=== PATIENT | male | born 1995 | race Caucasian/White ===

== ENCOUNTER 2018-02-09 18:54 | Observation (INO) | payer MEDICAID, SELFPAY ==
[2018-02-09] VITALS (10 sets, daily range): BP systolic 99–150; BP diastolic 42–78; PULSE 119–153; RESP 14–26; TEMP 36.7–37.3; O2SAT 97–100; BMI 20.8
[2018-02-09 19:16] LABS: Bedside Glucose 357 mg/dL (70-110)
[2018-02-09] MEDS: 0.9% Normal Saline 1,000 ML 999 ML IV ×3 (19:42→21:57)
--- NOTE | 2018-02-09 19:55 | PCM.HP.STD ---
Problem List (1) DKA (diabetic ketoacidoses) Status: Acute (2) Abdominal pain Status: Acute (3) Nausea and vomiting due to hyperglycemia Status: Acute History of Present Illness Date of Admission: 02/09/18 Chief Complaint: DKA The patient is a 22 year old male w/ h/o DM and DKA admitted for DKA. He was transferred from [facility] to [facility] for DKA. He has n/v and abdominal pain for the past 2 days. He has been compliant with his insulin. His abdominal pain has worsened over the past few days. Eating made the pain worse. Rest helped to relieve the pain. Pain is sharp and constant. Pain is severe and is associated with n/v. His vomitus has been nonbloody. His pain has been getting gradually worse over the past two days. There is no other associated symptoms. He went to the ED for further workup. While at [facility], he was started on insulin gtt, and hydrated. However, despite improvement in his blood sugar, there is no improvement in his gap. He was transferred to [facility] for further care. Past Medical History Allergies No Known Allergies Allergy (Verified 02/09/18 19:36) Home Medications: Ambulatory Orders Medication Instructions Recorded Insulin Aspart [Novolog] 0 unit SQ ACHS 02/09/18 Insulin Glargine,Hum.rec.anlog 23 unit SQ BID 02/09/18 [Lantus] Surgical History: no surgical history Psychiatric History: No pertinent psych hx Lives: With Family Smoking Status: Never smoker Alcohol: None Drugs: None - *Family History Maternal History Items: No pertinent history Review of Systems Constitutional: Denies: Chills, Fever, Weight Change HEENT: Denies: Head Aches, Sinus Congestion, Sinus Drainage Cardiovascular: Denies: Chest Pain, Palpitations Respiratory: Denies: Cough, Shortness of breath at rest, Sputum production Gastrointestinal: Reports: Abdominal Pain, Nausea, Vomiting Genitourinary: Denies: Dysuria Musculoskeletal: Denies: Joint Pain, Joint Tenderness Skin: Denies: Rash, Wounds Neurological: Denies: Numbness, Tingling, Focal weakness Psychiatric: Denies: Anxiety, Depression, Homicidal Ideations, Suicidal Ideations Hematologic/ Lymphatic: Denies: Easy Bruising, Easy Bleeding VTE Information - Inpt Only VTE Present on Admission: No VTE Mechan Device Prophylaxis: SCD's VTE Pharm Prophylaxis ordered?: No Patient Problems: Active and Suspected Problems DKA (diabetic ketoacidoses) (Acute) Abdominal pain (Acute) Nausea and vomiting due to hyperglycemia (Acute) - Physical Exam General: Alert, Oriented x3, Cooperative HEENT: Atraumatic, PERRLA, EOMI, Normocephalic Neck: Supple, No JVD, Negative Carotid Bruits Lungs: Clear to auscultation, Normal air movement Cardiovascular: Regular rate, No murmurs Abdomen: Bowel Sounds Present, Soft, Non Tender Extremities: No edema, Capillary Refill Less than 3 Seconds Skin: No rashes, No breakdown Musculoskeletal: No Tenderness to Palpation of Joints or Extremities Neurological: Cranial nerves II-XII grossly intact Psych/Mental Status: Normal Affect, Appropriate Vital Signs Temp Pulse Resp BP Pulse Ox 98.0 F 135 H 16 118/78 100 02/09/18 19:12 02/09/18 19:12 02/09/18 19:12 02/09/18 19:12 02/09/18 19:12 Oxygen Delivery Method Room Air Weight: 64 kg Body Mass Index (BMI) 20.8 POC Glucose 02/09/18 19:09 POC Glucose 357 H Assessment/Plan Active and Suspected Problems DKA (diabetic ketoacidoses) (Acute) Abdominal pain (Acute) Nausea and vomiting due to hyperglycemia (Acute) 22 year old male w/ h/o DM and DKA admitted for DKA. 1) DKA: Anion gap 24. Hyperglycemia with glucose in the 300s. Acetone noted. Probably from noncompliant. Will start DKA protocol. Will follow labs. Hydration. Will restart insulin gtt given worsening blood sugars. Will consider restarting lantus once gap closed. Will get utox and trops. 2) Abdominal pain: Probably from DKA. Supportive care. Hydration. 3) Nausea / vomiting: Probably from DKA. Hydration and insulin. Zofran and compazine PRN. Supportive care. 4) Prophylaxis: SCD.
[2018-02-09] MEDS: Ondansetron 4 MG/2 ML Vial IV (20:03)
--- NOTE | 2018-02-09 20:25 | NURSING ---
REPORT CALLED TO ICU, PATIENT BEING TRANSFERRED NOW.
[2018-02-09 20:29] LABS: AST(SGOT) 17 U/L (15-37); Alanine Aminotransfer ALT/SGPT 24 U/L (16-61); Albumin, Serum 4.1 g/dL (3.2-5.0); Alkaline Phosphatase 113 U/L (45-117); Anion Gap 21 (5-15); BUN 13 mg/dL (7-18); BUN/Creat Ratio 11.9 RATIO (10-20); Bilirubin, Direct 0.24 mg/dL (0.00-0.30); Calcium,Total 8.4 mg/dL (8.5-10.1); Chloride 105 mmol/L (98-107); Creatinine, Serum 1.09 mg/dL (0.70-1.30); EST Glomerular Filtration Rate 89 mL/min (>60); Est Glom Filt Rate - Afr Amer 108 mL/min (>60); Estimated Creatinine Clearance 95.41 ml/min; Globulin 2.9 g/dL (2.2-4.2); Glucose 430 mg/dL (74-106); Magnesium 1.5 mg/dL (1.6-2.6); Potassium 4.5 mmol/L (3.5-5.1); Sodium Level 138 mmol/L (136-145)
[2018-02-09 20:45] LABS: Hemoglobin A1c 9.2 % (4.2-6.3)
[2018-02-09] MEDS: Morphine 4 MG/ML Syringe 1 MG IV ×2 (20:58→23:06)
[2018-02-09] MEDS: proCHLORPERazine 10 MG/2 ML Vial 5 MG IM (20:59)
[2018-02-09 21:03] LABS: Osmolality, Serum 315 mOsm/KG (275-295)
[2018-02-09 22:01] LABS: Bedside Glucose 360 mg/dL (70-110)
[2018-02-09 22:01] LABS: Bedside Glucose 348 mg/dL (70-110)
[2018-02-09 22:22] LABS: M R Staph aureus DNA By PCR Negative (Negative); Probe Check PASS; Specimen Processing Control PASS
[2018-02-09] MEDS: 0.9% Normal Saline 1,000 ML 500 ML IV (23:07)
[2018-02-09 23:33] LABS: Bacteria 0 SEEN /hpf (None Seen); Mucous, Urine 0 SEEN /hpf (<or=2+); Red Blood Cells-Urine 0 SEEN /hpf (0-5); White Blood Cells 0 SEEN /hpf (0-5)
[2018-02-09 23:40] LABS: Color, Urine Straw (Yellow); Glucose, Dipstick 1000 mg/dl (Normal); Leukocyte Esterase-Dipstick Negative /ul (Negative); Nitrite-Dipstick Negative (Negative); Occult Blood-Urine Negative /ul (Negative); Protein-Dipstick Negative (Negative); Urine Bilirubin Dipstick Negative (Negative); Urine Clarity Sl. Cloudy (Clear); Urine Urobilinogen Normal (Normal)
[2018-02-09 23:57] LABS: Ketone-Dipstick 150 mg/dl (Negative)
[2018-02-09 23:58] LABS: Squamous Epithelial Cells - UA 0-5 SEEN /hpf (0-5)
[2018-02-10] VITALS (25 sets, daily range): BP systolic 88–121; BP diastolic 32–66; PULSE 100–133; RESP 13–24; TEMP 37.1–37.6; O2SAT 95–100
[2018-02-10 00:11] LABS: Bedside Glucose 248 mg/dL (70-110)
[2018-02-10 00:11] LABS: Bedside Glucose 207 mg/dL (70-110)
[2018-02-10 00:29] LABS: Anion Gap 17 (5-15); BUN 11 mg/dL (7-18); BUN/Creat Ratio 10.9 RATIO (10-20); Calcium,Total 7.4 mg/dL (8.5-10.1); Chloride 115 mmol/L (98-107); Creatinine, Serum 1.01 mg/dL (0.70-1.30); EST Glomerular Filtration Rate 97 mL/min (>60); Est Glom Filt Rate - Afr Amer 118 mL/min (>60); Estimated Creatinine Clearance 102.97 ml/min; Glucose 242 mg/dL (74-106); Sodium Level 144 mmol/L (136-145)
[2018-02-10] MEDS: Dext 5%-0.45% NS 1,000 ML 150 ML IV ×3 (00:50→20:23)
[2018-02-10] MEDS: proCHLORPERazine 10 MG/2 ML Vial 5 MG IV (01:15)
[2018-02-10] MEDS: Morphine 4 MG/ML Syringe 1 MG IV ×2 (01:22→20:12)
[2018-02-10] MEDS: Ondansetron 4 MG/2 ML Vial IV ×2 (01:24→18:21)
[2018-02-10] MEDS: 0.9% NaCl Peripheral Flush Adult/Peds IV (01:24)
[2018-02-10 02:11] LABS: Bedside Glucose 209 mg/dL (70-110)
[2018-02-10 02:11] LABS: Bedside Glucose 188 mg/dL (70-110)
[2018-02-10 03:25] LABS: Anion Gap 18 (5-15); BUN 9 mg/dL (7-18); BUN/Creat Ratio 9.3 RATIO (10-20); Calcium,Total 7.2 mg/dL (8.5-10.1); Chloride 115 mmol/L (98-107); Creatinine, Serum 0.97 mg/dL (0.70-1.30); EST Glomerular Filtration Rate 102 mL/min (>60); Est Glom Filt Rate - Afr Amer 123 mL/min (>60); Estimated Creatinine Clearance 107.22 ml/min; Glucose 226 mg/dL (74-106); Potassium 4.1 mmol/L (3.5-5.1); Sodium Level 146 mmol/L (136-145)
[2018-02-10 04:16] LABS: Bedside Glucose 223 mg/dL (70-110)
[2018-02-10 04:16] LABS: Bedside Glucose 223 mg/dL (70-110)
[2018-02-10 05:33] LABS: Absolute Lymphocyte Count 0.98 X10^3/ul (0.83-4.51); Absolute Neutrophil Count 16.7 X10^3/uL (2.0-7.7); Basophil# 0.01 X10^3/uL; Basophil% 0.1 % (0-1); Hematocrit 38.7 % (40-54); Hemoglobin 13.7 g/dl (13.0-16.5); Lymphocyte # 0.98 X10^3/ul (4.0); Lymphocyte % 5.2 % (19-41); Mean Corp Hgb Conc 35.4 g/gl (32-36); Mean Corpuscular Hgb 32.4 pg (27.0-32.0); Mean Corpuscular Volume 91.5 fL (80-94); Monocyte% 5.3 % (0-10); Neutrophil # 16.73 X10^3/uL (2.7-7.7); Neutrophil % 89.2 % (47-70); Platelet Count 233 K/mm3 (150-450); RBC Distribution Width CV 12.8 % (11.6-14.6); RBC Distribution Width SD 42.3 fl (35.1-43.9); Red Blood Count 4.23 M/mm3 (4.6-6.2); White Blood Count 18.8 K/mm3 (4.4-11.0)
[2018-02-10 05:39] LABS: Magnesium 1.7 mg/dL (1.6-2.6); Phosphorus 2.4 mg/dL (2.5-4.9)
[2018-02-10 06:15] LABS: POSITIVE COUNT NO; POSITIVE DIFFERENTIAL NO; POSITIVE MORPHOLOGY NO
[2018-02-10 07:10] LABS: Bedside Glucose 195 mg/dL (70-110)
[2018-02-10 07:10] LABS: Bedside Glucose 193 mg/dL (70-110)
[2018-02-10 07:10] LABS: Bedside Glucose 207 mg/dL (70-110)
[2018-02-10 07:28] LABS: Anion Gap 12 (5-15); BUN 8 mg/dL (7-18); BUN/Creat Ratio 8.9 RATIO (10-20); Calcium,Total 7.5 mg/dL (8.5-10.1); Chloride 116 mmol/L (98-107); EST Glomerular Filtration Rate 112 mL/min (>60); Est Glom Filt Rate - Afr Amer 135 mL/min (>60); Estimated Creatinine Clearance 120.07 ml/min; Glucose 199 mg/dL (74-106); Potassium 3.6 mmol/L (3.5-5.1); Sodium Level 145 mmol/L (136-145)
[2018-02-10 08:11] LABS: Bedside Glucose 170 mg/dL (70-110)
[2018-02-10 09:05] LABS: Bedside Glucose 154 mg/dL (70-110)
[2018-02-10 09:28] LABS: Anion Gap 10 (5-15); BUN 8 mg/dL (7-18); BUN/Creat Ratio 8.3 RATIO (10-20); Calcium,Total 7.6 mg/dL (8.5-10.1); Chloride 115 mmol/L (98-107); Creatinine, Serum 0.96 mg/dL (0.70-1.30); EST Glomerular Filtration Rate 103 mL/min (>60); Est Glom Filt Rate - Afr Amer 125 mL/min (>60); Estimated Creatinine Clearance 112.57 ml/min; Glucose 155 mg/dL (74-106); Potassium 3.3 mmol/L (3.5-5.1); Sodium Level 144 mmol/L (136-145)
[2018-02-10 10:56] LABS: Bedside Glucose 97 mg/dL (70-110)
[2018-02-10] MEDS: 0.9% Normal Saline 1,000 ML 150 ML IV ×2 (11:03→18:07)
[2018-02-10] MEDS: Insulin Lispro 100 UNIT/ML INSULN.PEN 15 UNIT SC ×2 (11:49→17:57)
[2018-02-10 13:30] LABS: Bedside Glucose 115 mg/dL (70-110)
[2018-02-10 16:50] LABS: Bedside Glucose 155 mg/dL (70-110)
[2018-02-10] MEDS: Insulin Lispro 100 UNIT/ML INSULN.PEN SC (17:56)
--- NOTE | 2018-02-10 18:15 | PCM.PROGNOTE ---
Patient Problems: Active and Suspected Problems DKA (diabetic ketoacidoses) (Acute) Abdominal pain (Acute) Nausea and vomiting due to hyperglycemia (Acute) Subjective: Patient seen and examined today, he was taken off his insulin drip this morning, his blood sugars have remained under 200, he has had episodes of tremors and tachycardia, I do not know what is causing these episodes, he denies any drug usage to the nurses or alcohol usage. I feel the patient is stable to be transferred to the [facility] floor, I wrote orders to this effect, I do not think he should go home tonight, I think he still needs fluids he is not in taking fluids or nutrition very well today. I will leave him off basal insulin and just use insulin with each meal and sliding scale insulin. I have ordered repeat labs for tonight, patient is afebrile and there is no sign of any infection at this time - Physical Exam General: Alert, Oriented x3, Cooperative, No apparent distress, Well developed, Well nourished HEENT: Atraumatic, PERRLA, EOMI, Normocephalic Oral: Moist Mucosa Neck: Supple, No JVD, No Nuchal Rigidity, Trachea Midline, Thyroid Normal Size and Texture Lungs: Clear to auscultation, Normal air movement, No rhonchi, No wheeze, No rales Cardiovascular: Regular Rhythm, Normal S1, Normal S2, No murmurs, PMI Normal, No rub noted, Tachycardic Abdomen: Bowel Sounds Present, Soft, Non Tender, Non-Distended, No hernias noted Extremities: No clubbing, No cyanosis, No edema, Capillary Refill Less than 3 Seconds Skin: No rashes, No breakdown Musculoskeletal: No Tenderness to Palpation of Joints or Extremities Neurological: Cranial nerves II-XII grossly intact, Neuro grossly intact, Muscle tone normal, Sensory exam intact to light touch and pain, - - He has tremors at times Psych/Mental Status: Normal Affect, Appropriate, Alert and oriented to time, place, person, mood and affect Vital Signs Temp Pulse Resp BP Pulse Ox 98.9 F 124 H 16 118/55 L 100 02/10/18 16:00 02/10/18 17:00 02/10/18 17:00 02/10/18 17:00 02/10/18 17:00 Oxygen Delivery Method Room Air Weight: 66.5 kg Body Mass Index (BMI) 20.8 Finger Stick Blood Glucose 97 Intake and Output for Last 24 Hours 02/08/18 02/09/18 02/10/18 23:59 23:59 23:59 Intake Total 2617 / 2617 3488.6 / 3488.6 Output Total 700 / 700 1450 / 1450 Balance 1916 / 1916 2038.6 / 2038.6 Laboratory Tests Past 24 Hrs 02/09/18 02/09/18 02/09/18 19:20 19:20 19:50 WBC RBC Hgb Hct MCV MCH MCHC RDW RDW Differential Plt Count MPV Immature Gran % (Auto) Neut % (Auto) Lymph % (Auto) [place] % (Auto) Eos % (Auto) Baso % (Auto) Absolute Neuts (auto) Absolute Lymphs (auto) Total Counted Sodium 138 Potassium 4.5 Chloride 105 Carbon Dioxide 12.0 L Anion Gap 21 H BUN 13 Creatinine 1.09 Estim Creat Clear Calc 95.41 Est GFR (MDRD) Af Amer 108 Est GFR (MDRD) Non-Af 89 BUN/Creatinine Ratio 11.9 Glucose 430 H Hemoglobin A1c 9.2 H Serum Osmolality 315 H Calcium 8.4 L Phosphorus Magnesium 1.5 L Total Bilirubin 1.00 Direct Bilirubin 0.24 AST 17 ALT 24 Alkaline Phosphatase 113 Troponin I Total Protein 7.0 Albumin 4.1 Globulin 2.9 Urine Color Urine Clarity Urine pH Ur Specific [place] Urine Protein Urine Glucose (UA) Urine Ketones Urine Occult Blood Urine Nitrite Urine Bilirubin Urine Urobilinogen Ur Leukocyte Esterase Urine RBC Urine WBC Ur Squamous Epith Cells Urine Bacteria Urine Mucus Acetone Level SMALL H MRSA (PCR) 02/09/18 02/09/18 02/09/18 19:50 20:45 23:15 WBC RBC Hgb Hct MCV MCH MCHC RDW RDW Differential Plt Count MPV Immature Gran % (Auto) Neut % (Auto) Lymph % (Auto) Mil[place] % (Auto) Eos % (Auto) Baso % (Auto) Absolute Neuts (auto) Absolute Lymphs (auto) Total Counted Sodium Cancelled Potassium Cancelled Chloride Cancelled Carbon Dioxide Cancelled Anion Gap Cancelled BUN Cancelled Creatinine Cancelled Estim Creat Clear Calc Cancelled Est GFR (MDRD) Af Amer Cancelled Est GFR (MDRD) Non-Af Cancelled BUN/Creatinine Ratio Cancelled Glucose Cancelled Hemoglobin A1c Serum Osmolality Calcium Cancelled Phosphorus Magnesium Total Bilirubin Direct Bilirubin AST ALT Alkaline Phosphatase Troponin I Total Protein Albumin Globulin Urine Color Straw Urine Clarity Sl. Cloudy Urine pH 5.0 Ur Specific [place] 1.020 Urine Protein Negative Urine Glucose (UA) 1000 H Urine Ketones 150 H Urine Occult Blood Negative Urine Nitrite Negative Urine Bilirubin Negative Urine Urobilinogen Normal Ur Leukocyte Esterase Negative Urine RBC 0 SEEN Urine WBC 0 SEEN Ur Squamous Epith Cells 0-5 SEEN Urine Bacteria 0 SEEN Urine Mucus 0 SEEN Acetone Level MRSA (PCR) Negative 02/09/18 02/10/18 02/10/18 23:25 03:05 03:05 WBC 18.8 H RBC 4.23 L Hgb 13.7 Hct 38.7 L MCV 91.5 MCH 32.4 H MCHC 35.4 RDW 12.8 RDW Differential 42.3 Plt Count 233 MPV 10.0 Immature Gran % (Auto) 0.200 Neut % (Auto) 89.2 H Lymph % (Auto) 5.2 L Mil[place] % (Auto) 5.3 Eos % (Auto) 0.0 Baso % (Auto) 0.1 Absolute Neuts (auto) 16.7 H Absolute Lymphs (auto) 0.98 Total Counted Not Reportable Sodium 144 146 H Potassium 4.0 4.1 Chloride 115 H 115 H Carbon Dioxide 12.0 L 13.0 L Anion Gap 17 H 18 H BUN 11 9 Creatinine 1.01 0.97 Estim Creat Clear Calc 102.97 107.22 Est GFR (MDRD) Af Amer 118 123 Est GFR (MDRD) Non-Af 97 102 BUN/Creatinine Ratio 10.9 9.3 L Glucose 242 H 226 H Hemoglobin A1c Serum Osmolality Calcium 7.4 L 7.2 L Phosphorus Magnesium Total Bilirubin Direct Bilirubin AST ALT Alkaline Phosphatase Troponin I < 0.015 Total Protein Albumin Globulin Urine Color Urine Clarity Urine pH Ur Specific [place] Urine Protein Urine Glucose (UA) Urine Ketones Urine Occult Blood Urine Nitrite Urine Bilirubin Urine Urobilinogen Ur Leukocyte Esterase Urine RBC Urine WBC Ur Squamous Epith Cells Urine Bacteria Urine Mucus Acetone Level MRSA (PCR) 02/10/18 02/10/18 02/10/18 03:05 03:05 07:00 WBC RBC Hgb Hct MCV MCH MCHC RDW RDW Differential Plt Count MPV Immature Gran % (Auto) Neut % (Auto) Lymph % (Auto) Mil[place] % (Auto) Eos % (Auto) Baso % (Auto) Absolute Neuts (auto) Absolute Lymphs (auto) Total Counted Sodium 145 Potassium 3.6 Chloride 116 H Carbon Dioxide 17.0 L Anion Gap 12 BUN 8 Creatinine 0.90 Estim Creat Clear Calc 120.07 Est GFR (MDRD) Af Amer 135 Est GFR (MDRD) Non-Af 112 BUN/Creatinine Ratio 8.9 L Glucose 199 H Hemoglobin A1c Serum Osmolality Calcium 7.5 L Phosphorus 2.4 L Magnesium 1.7 Total Bilirubin Direct Bilirubin AST ALT Alkaline Phosphatase Troponin I < 0.015 < 0.015 Total Protein Albumin Globulin Urine Color Urine Clarity Urine pH Ur Specific [place] Urine Protein Urine Glucose (UA) Urine Ketones Urine Occult Blood Urine Nitrite Urine Bilirubin Urine Urobilinogen Ur Leukocyte Esterase Urine RBC Urine WBC Ur Squamous Epith Cells Urine Bacteria Urine Mucus Acetone Level MRSA (PCR) 02/10/18 09:00 WBC RBC Hgb Hct MCV MCH MCHC RDW RDW Differential Plt Count MPV Immature Gran % (Auto) Neut % (Auto) Lymph % (Auto) [place] % (Auto) Eos % (Auto) Baso % (Auto) Absolute Neuts (auto) Absolute Lymphs (auto) Total Counted Sodium 144 Potassium 3.3 L Chloride 115 H Carbon Dioxide 19.0 L Anion Gap 10 BUN 8 Creatinine 0.96 Estim Creat Clear Calc 112.57 Est GFR (MDRD) Af Amer 125 Est GFR (MDRD) Non-Af 103 BUN/Creatinine Ratio 8.3 L Glucose 155 H Hemoglobin A1c Serum Osmolality Calcium 7.6 L Phosphorus Magnesium Total Bilirubin Direct Bilirubin AST ALT Alkaline Phosphatase Troponin I Total Protein Albumin Globulin Urine Color Urine Clarity Urine pH Ur Specific [place] Urine Protein Urine Glucose (UA) Urine Ketones Urine Occult Blood Urine Nitrite Urine Bilirubin Urine Urobilinogen Ur Leukocyte Esterase Urine RBC Urine WBC Ur Squamous Epith Cells Urine Bacteria Urine Mucus Acetone Level MRSA (PCR) POC Glucose 02/10/18 02/10/18 02/10/18 16:46 13:26 10:51 POC Glucose 155 H 115 H 97 02/10/18 02/10/18 02/10/18 09:00 08:05 06:00 POC Glucose 154 H 170 H 207 H 02/10/18 02/10/18 02/10/18 05:05 04:06 03:01 POC Glucose 193 H 223 H 223 H 02/10/18 02/10/18 02/10/18 02:04 00:55 00:06 POC Glucose 209 H 188 H 207 H 02/09/18 02/09/18 02/09/18 22:58 21:55 20:42 POC Glucose 248 H 348 H 360 H 02/09/18 19:09 POC Glucose 357 H Medical Necessity - Tobacco Use Smoking Status: Never smoker Assessment/Plan Active and Suspected Problems DKA (diabetic ketoacidoses) (Acute) Abdominal pain (Acute) Nausea and vomiting due to hyperglycemia (Acute) #1 diabetic ketoacidosis-resolved at this time, again I feel he can be transferred to [facility], labs are pending for tonight, I will hold off placing him on basal insulin at this time due to his poor appetite. I will continue IV fluids at 150 cc/h #2 tachycardia-etiology unclear #3 tremors-etiology unclear, questionable anxiety disorder, will observe patient Code Visit Inpatient E&M: 52340 Subs Hosp L2
[2018-02-10 18:45] LABS: Bedside Glucose 240 mg/dL (70-110)
[2018-02-10 18:50] LABS: ALB/GLOB Ratio 1.5 RATIO (0.9-2.4); AST(SGOT) 15 U/L (15-37); Alanine Aminotransfer ALT/SGPT 19 U/L (16-61); Albumin, Serum 3.6 g/dL (3.2-5.0); Alkaline Phosphatase 99 U/L (45-117); Anion Gap 18 (5-15); BUN 6 mg/dL (7-18); BUN/Creat Ratio 6.8 RATIO (10-20); Calcium,Total 8.2 mg/dL (8.5-10.1); Chloride 107 mmol/L (98-107); Creatinine, Serum 0.88 mg/dL (0.70-1.30); EST Glomerular Filtration Rate 114 mL/min (>60); Est Glom Filt Rate - Afr Amer 138 mL/min (>60); Globulin 2.4 g/dL (2.2-4.2); Glucose 309 mg/dL (74-106); Potassium 3.5 mmol/L (3.5-5.1); Sodium Level 139 mmol/L (136-145)
[2018-02-10 18:53] LABS: Absolute Lymphocyte Count 1.56 X10^3/ul (0.83-4.51); Absolute Neutrophil Count 10.1 X10^3/uL (2.0-7.7); Basophil# 0.02 X10^3/uL; Basophil% 0.2 % (0-1); Eosinophil# 0.02 X10^3/uL; Eosinophils% 0.2 % (0-5); Hematocrit 40.4 % (40-54); Hemoglobin 14.5 g/dl (13.0-16.5); Lymphocyte # 1.56 X10^3/ul (4.0); Lymphocyte % 12.8 % (19-41); Mean Corp Hgb Conc 35.9 g/gl (32-36); Mean Corpuscular Hgb 32.3 pg (27.0-32.0); Mean Platelet Vol. 9.8 fl (6.2-12.0); Monocyte# 0.51 X10^3/uL; Monocyte% 4.2 % (0-10); Neutrophil # 10.05 X10^3/uL (2.7-7.7); Neutrophil % 82.4 % (47-70); Platelet Count 221 K/mm3 (150-450); RBC Distribution Width CV 12.5 % (11.6-14.6); RBC Distribution Width SD 40.8 fl (35.1-43.9); Red Blood Count 4.49 M/mm3 (4.6-6.2); White Blood Count 12.2 K/mm3 (4.4-11.0)
[2018-02-10 18:54] LABS: POSITIVE COUNT NO; POSITIVE DIFFERENTIAL NO; POSITIVE MORPHOLOGY NO
[2018-02-10] MEDS: 0.9% Normal Saline 1,000 ML 999 ML IV (19:05)
[2018-02-10] MEDS: proMETHazine 25 MG/ML Syringe 12.5 MG IV (20:12)
[2018-02-10 21:26] LABS: Bedside Glucose 214 mg/dL (70-110)
[2018-02-10 21:26] LABS: Bedside Glucose 132 mg/dL (70-110)
[2018-02-10 22:24] LABS: Anion Gap 11 (5-15); BUN 6 mg/dL (7-18); BUN/Creat Ratio 7.9 RATIO (10-20); Calcium,Total 7.5 mg/dL (8.5-10.1); Chloride 113 mmol/L (98-107); Creatinine, Serum 0.76 mg/dL (0.70-1.30); EST Glomerular Filtration Rate 136 mL/min (>60); Est Glom Filt Rate - Afr Amer 164 mL/min (>60); Estimated Creatinine Clearance 142.19 ml/min; Glucose 152 mg/dL (74-106); Sodium Level 143 mmol/L (136-145)
[2018-02-11] VITALS (15 sets, daily range): BP systolic 99–125; BP diastolic 44–77; PULSE 86–106; RESP 12–15; TEMP 36.3–37.3; O2SAT 97–100
[2018-02-11 00:01] LABS: Bedside Glucose 133 mg/dL (70-110)
[2018-02-11 00:01] LABS: Bedside Glucose 125 mg/dL (70-110)
[2018-02-11 00:11] LABS: Bedside Glucose 119 mg/dL (70-110)
[2018-02-11 00:28] LABS: Amphetamine Urine VISTA NEGATIVE (<1000 ng/mL); Barbiturate Urine VISTA NEGATIVE (< 200 ng/mL); Benzodiazepine Urine VISTA NEGATIVE (< 200 ng/mL); Cocaine Urine VISTA NEGATIVE (< 300 ng/mL); Ecstacy Urine VISTA NEGATIVE (< 500 ng/mL); Methadone Urine VISTA NEGATIVE (< 300 ng/mL); PCP Urine VISTA NEGATIVE (< 25 ng/mL); THC Urine VISTA NEGATIVE (< 50 ng/mL); Vista UDS pH Range 6
[2018-02-11 02:42] LABS: Anion Gap 9 (5-15); BUN 4 mg/dL (7-18); BUN/Creat Ratio 5.6 RATIO (10-20); Calcium,Total 7.5 mg/dL (8.5-10.1); Chloride 114 mmol/L (98-107); Creatinine, Serum 0.71 mg/dL (0.70-1.30); EST Glomerular Filtration Rate 146 mL/min (>60); Est Glom Filt Rate - Afr Amer 177 mL/min (>60); Glucose 89 mg/dL (74-106); Sodium Level 144 mmol/L (136-145)
[2018-02-11] MEDS: 0.9% NaCl IVPB Med Flush (250 mL) 15 ML IV (03:36)
[2018-02-11 04:06] LABS: Bedside Glucose 81 mg/dL (70-110)
[2018-02-11 04:06] LABS: Bedside Glucose 89 mg/dL (70-110)
[2018-02-11 07:00] LABS: Bedside Glucose 82 mg/dL (70-110)
[2018-02-11 07:00] LABS: Bedside Glucose 83 mg/dL (70-110)
[2018-02-11] MEDS: 0.9% NaCl Peripheral Flush Adult/Peds IV (07:06)
[2018-02-11] MEDS: Dextrose 50%-Water 25 GM/50 ML DISP.SYRIN IV (07:06)
[2018-02-11 08:36] LABS: Bedside Glucose 100 mg/dL (70-110)
[2018-02-11 08:36] LABS: Bedside Glucose 64 mg/dL (70-110)
[2018-02-11 08:36] LABS: Bedside Glucose 117 mg/dL (70-110)
[2018-02-11] MEDS: 0.9% Normal Saline 1,000 ML 200 ML IV ×2 (08:36→12:10)
[2018-02-11] MEDS: Insulin Lispro 100 UNIT/ML INSULN.PEN 15 UNIT SC (08:48)
--- NOTE | 2018-02-11 09:33 | CASEMGMT ---
Addendum entered by Antoni Cortez 02/11/18 11:20: Dr. Malik [address] [place] [address] Original Note: Addendum entered by Antoni Cortez 02/11/18 11:18: Pt stated he has physician, Dr. Malik and relationship specialist, not sure of name. Will need to f/u on dc. Original Note: Addendum entered by Antoni Cortez 02/11/18 09:41: Case reviewed with Dr. Rivera. Plan is for dc later today if pt remains medically stable. Original Note: RN CM Note. Pt with history of Diabetes. ? noncompliance. Has [employer]- if new script needed for supplies can be filled @ local pharmacy. SW consult for coping issues. Per physician pt is not interactive with staff, remains in darkened room. GUNNAR Carlson updated. Nick LOCKETTN RN ACM
--- NOTE | 2018-02-11 10:11 | CASEMGMT ---
SW met with patient. Introduced self and role at [facility]. When SW walked in patient was lying in bed mostly covered up with blanket. When SW came in he sat up in bed and was willing to talk. Patient said he just moved in with his brother. SW obtained his current address and will fix it in the computer. SW asked if anything happened that he had to move. He said nothing happened, he just moved in with his brother. SW asked if he works and he does not nor did he graduate from high school. SW asked how he normally does with managing his diabetes. He said he normally does ok, but this time he just got sick really fast. He denies missing any insulin doses. He denies any other stressors other than his move. He also denies use of any drugs or alcohol. He said he has anxiety and depression. He is not in counseling nor is he on any medications for these. SW offered to give him some counseling resources and he declined. He said he needs to get back to the place he went before. He said it was [facility] in [place]. SW asked him about transportation and he said he nor his brother drive. His mom usually takes him where he needs to go. SW offered to make an appt and he declined stating he would have to talk to his mom first regarding transportation. SW asked if he was feeling suicidal or homicidal and he declined both. SW asked if he has ever felt suicidal or homicidal and he said he has felt suicidal in the past. SW asked him when and he said awhile ago. He again denied feeling suicidal. GUNNAR asked if he feels safe going home and he does. He said he would have a ride home. SW asked him if there was anything SW could do for him and he declined. SW told him that SW is available should he feel like talking more. GUNNAR told him he just needs to ask the nurse for Social Work. He verbalized understanding. GUNNAR will notify physician that SW spoke with patient. SW may also try to check in with patient again later in the day. My AKHTAR MSW
[2018-02-11 12:15] LABS: Bedside Glucose 64 mg/dL (70-110)
[2018-02-11 12:46] LABS: Bedside Glucose 76 mg/dL (70-110)
--- NOTE | 2018-02-11 15:43 | DCINST_ITS ---
- Discharge Diagnoses Current Active Problems: Current Active and Chronic Problems DKA (diabetic ketoacidoses) (Acute) Abdominal pain (Acute) Nausea and vomiting due to hyperglycemia (Acute) You will use the following diet at home:: Calorie/Carbohydrate Controlled ( specify 1200, 1400, etc) - 2200 lisbeth Your food should be the consistency of: Regular Your liquids should be the consistency of: Regular/Thin Discharge Activity: Return to Normal Activity Weight Bearing Status: Full weight bearing Allergies/Adverse Reactions: Allergies No Known Allergies Allergy (Verified 02/09/18 19:36) Medications to take at Discharge Insulin Glargine,Hum.rec.anlog [Lantus] 23 unit SQ BID 02/09/18 Duloxetine Hcl [Cymbalta] 30 mg PO UD #60 cap 02/11/18 Insulin Aspart [Novolog Vial] 10 unit SQ TIDCM #1 vial 02/11/18 The following prescriptions were given: Duloxetine Hcl [Cymbalta] 30 mg PO UD #60 cap Insulin Aspart [Novolog Vial] 10 unit SQ TIDCM #1 vial Please follow up with your Primary Care Physician in: in one to two weeks
--- NOTE | 2018-02-11 19:53 | PCM.DC.SUM ---
Discharge Date and Diagnosis Date of Admission: 02/09/18 Date of Discharge: 02/11/18 - Primary Discharge Diagnosis #1 diabetic ketoacidosis #2 uncontrolled type 1 diabetes #3 major depression Hospital Course and Treatment Operations: None Procedures: None Summary of Care Provided: The patient is a 22 year old M who was seen in the emergency room at [facility] and found to be in DKA, patient was not acidotic, serum acetone level in the blood was slight, and with treatment in the emergency room at [place], patient's blood sugar had diminished into the mid 200 range at the time he was transferred to [facility] as a direct admission. Due to his age and slight amount of ketones in his bloodstream, it was felt that the patient could be placed into observation status on PCU and treated with vigorous fluid resuscitation and frequent BMP and Accu-Cheks and given insulin to bring his sugar down and close his anion gap. Unfortunately, when the patient was placed on PCU, patient's blood sugar was noted to be elevated and anion gap was elevated and it was felt that it was appropriate for him to be admitted to the ICU and placed on an insulin drip. Patient was given fluids and his blood sugar BMPs were monitored. The next day he was able to come off his insulin drip and patient exhibited depressive behaviors with minimal verbal contact from nursing and little activity in his room. Patient was transitioned over to a 2200-calorie diet and initially placed on Levemir and subcu insulin with each meal. Later that same night however, patient was placed back on an insulin drip due to an increased anion gap. Patient was on this insulin briefly and again was taken off the insulin drip and was treated with fluids, insulin per protocol, insulin with meals, and basal insulin. I had a discussion with the patient about any history of depression, he confirmed that he had been depressed for many years and had been treated at various intervals with different antidepressants. He denied any actual bipolar diagnosis. I felt it was necessary to start the patient back on antidepressants at the time of his discharge, he stated he was following up with a counseling center in [place] but had not been there in 4 months. On 02/11/18, patient was seen and examined felt to be in stable condition for discharge home Discharge Activity: Return to Normal Activity Weight Bearing Status: Full weight bearing Home Medications: Medications to take at Discharge Insulin Glargine,Hum.rec.anlog [Lantus] 23 unit SQ BID 02/09/18 Duloxetine Hcl [Cymbalta] 30 mg PO UD #60 cap 02/11/18 Insulin Aspart [Novolog Vial] 10 unit SQ TIDCM #1 vial 02/11/18 Following Prescrptions Were Given to Patient: Duloxetine Hcl [Cymbalta] 30 mg PO UD #60 cap Insulin Aspart [Novolog Vial] 10 unit SQ TIDCM #1 vial Please follow up with your Primary Care Physician in: in one to two weeks Disposition: Home Minutes spent on discharge:: 34 Patient Condition:: Stable Medical Necessity - Tobacco Use Smoking Status: Never smoker Meaningful Use Info Meaningful Use Diagnoses (Choose all that apply): None applicable Code Visit OBSV E&M: 68045 Observation care discharge
== END 2018-02-11 16:35 | disposition home or self-care (01) ==
LOC: PCU 19:16 → ICU 20:31
PROVIDERS: Family Medicine; Internal Medicine; Admitting Provider Internal Medicine; Visit Provider Internal Medicine
DX: E10.10 Type 1 diabetes mellitus with ketoacidosis without coma (principal); F32.9 Major depressive disorder, single episode, unspecified; Z79.4 Long term (current) use of insulin
CPT/HCPCS: 80048; 80053; 80076; 80307; 81001; 82009; 82962; 83036; 83735; 83930; 84100; 84484; 85025; 87641; 96361; 96365; 96366; 96372; 96375; 96376; 99218; J7030; J7050; A4216; G0378; G0379; J2405; J7799

== ENCOUNTER 2018-02-20 16:07 | Inpatient (IN) | payer MEDICAID, SELFPAY ==
[2018-02-20] VITALS (11 sets, daily range): BP systolic 102–130; BP diastolic 40–80; PULSE 116–135; RESP 14–18; TEMP 36.6–37.7; O2SAT 97–100; BMI 20.7
[2018-02-20 16:30] LABS: Bedside Glucose 268 mg/dL (70-110)
--- NOTE | 2018-02-20 16:38 | PCM.HP.STD ---
Problem List (1) Depression Status: Chronic (2) Lactic acidosis Status: Acute (3) Type 1 diabetes mellitus Status: Chronic (4) DKA (diabetic ketoacidoses) Status: Acute History of Present Illness Date of Admission: 02/20/18 Chief Complaint: Direct admission from outside facility for DKA. The patient is a 22 year old M with past medical history as mentioned above directly admitted from [facility] for diabetic ketoacidosis. Today, patient went to [place] [facility] for symptoms of abdominal pain, nausea and vomiting. His illness started last night with diffuse abdominal pain, described as cramping and sometimes dull aching pain, 8 out of 10 in severity, not radiating, associated with nausea and vomiting persistently as well as weakness and headache. He complained of headache, generalized, throbbing headache that has been going on since last night. He thinks that his insulin was and that is why his sugar has been high. He denied chest pain or shortness of breath. He denies fever chills. He denies cough or sputum production. Reported diarrhea twice since last night, loose stool without blood. He denied urinary symptoms. At this time, he is afebrile, tachycardic, blood pressure stable, pulse ox is maintained on room air. Routine blood work from the outside facility reviewed. CBC revealed hemoglobin of 16.5, platelet count of 376,000, WBC of 22,000. Sodium was 130, potassium was 4.2, serum bicarbonate was 7, chloride 89, glucose was 667. Lactic acid was 6.8. ABG revealed pH of 7.23, PCO2 of 13 and PO2 of 141. He is being admitted for diabetic ketoacidosis with lactic acidosis. Past Medical History Past Medical History (Chronic Problems): Chronic Problems Depression (Chronic) Type 1 diabetes mellitus (Chronic) Allergies No Known Allergies Allergy (Verified 02/09/18 19:36) Home Medications: Ambulatory Orders Medication Instructions Recorded Insulin Glargine,Hum.rec.anlog 23 unit SQ BID 02/09/18 [Lantus] Duloxetine Hcl [Cymbalta] 30 mg PO UD #60 cap 02/11/18 Insulin Aspart [Novolog Vial] 10 unit SQ TIDCM #1 vial 02/11/18 Surgical History: no surgical history Psychiatric History: No pertinent psych hx Smoking Status: Never smoker Alcohol: None Drugs: None - *Family History Maternal History Items: No pertinent history Paternal History Items: No pertinent history Review of Systems Constitutional: Reports: Anorexia, Weakness, Fatigue. Denies: Chills, Fever Eyes: Denies: Blurred vision, Double vision, Drainage, Redness HEENT: Denies: Difficulty Hearing, Ear Pain, Eye Pain, Nasal Congestion, Sore Throat Cardiovascular: Denies: Chest Pain, Chest Pressure, Chest Tightness, Palpitations, Syncope Respiratory: Denies: Cough, Pleuritic Pain, Shortness of Breath, Sputum production Gastrointestinal: Reports: Abdominal Pain, Diarrhea, Nausea, Vomiting. Denies: Constipation Genitourinary: Denies: Dysuria, Frequency, Hematuria Musculoskeletal: Denies: Arm Pain, Back Pain, Foot Pain Skin: Reports: Dryness. Denies: Rash Neurological: Reports: Headaches. Denies: Balance problems, Double vision, Change in Speech, Slurred speech, Confusion, Focal weakness, Numbness Psychiatric: Reports: Depression. Denies: Anxiety Endocrine: Denies: Change in Body Habitus, Polydipsia VTE Information - Inpt Only VTE Present on Admission: No VTE Mechan Device Prophylaxis: None VTE Pharm Prophylaxis ordered?: Yes Patient Problems: Active and Suspected Problems Lactic acidosis (Acute) - Physical Exam General: Alert, Oriented x3, Cooperative, - - Mildly short of breath. HEENT: Atraumatic, PERRLA, EOMI Oral: No Gingival or Mucosal Lesions/ Ulcerations, Dry Mucosa Neck: Supple, No JVD, Negative Carotid Bruits, Trachea Midline, Thyroid Normal Size and Texture Lungs: Clear to auscultation, No rhonchi, No wheeze, No rales, Diminished Cardiovascular: Regular rate, Regular Rhythm, Normal S1, Normal S2, No murmurs, PMI Normal, Tachycardic Abdomen: Bowel Sounds Present, Soft, Non-Distended, No Hepato-splenomegaly, Tender - No guarding or rigidity. Extremities: No clubbing, No cyanosis, No edema Skin: No rashes, No breakdown Lymphatic: No Cervical, Supraclavicular, or Inguinal Adenopathy Neurological: Cranial nerves II-XII grossly intact, Motor Exam 5/5 strength throughout Psych/Mental Status: Anxious, Alert and oriented to time, place, person, mood and affect Vital Signs Temp Pulse Resp BP Pulse Ox 99.8 F H 131 H 14 117/58 L 100 02/20/18 16:18 02/20/18 16:18 02/20/18 16:18 02/20/18 16:18 02/20/18 16:18 Oxygen Delivery Method Room Air Weight: 140 lb Body Mass Index (BMI) 20.7 Finger Stick Blood Glucose 97 Intake and Output for Last 24 Hours 02/18/18 02/19/18 02/20/18 23:59 23:59 23:59 Output Total 575 / 575 Balance -575 / -575 Laboratory Tests Past 24 Hrs 02/20/18 16:15 MRSA (PCR) Pending POC Glucose 02/20/18 16:13 POC Glucose 268 H Laboratory data: CBC: Hemoglobin 16.5, WBC 22,000, platelet count 376,000. BMP: Sodium 130, potassium 4.2, chloride 89, serum bicarbonate 7, BUN 18, creatinine 0.89, glucose 667. Lactic acid 6.8. ABG: PH 7.23, PCO2 13, PO2 141. Assessment/Plan All Active Problems Lactic acidosis (Acute) DKA (diabetic ketoacidoses) (Acute) This is a 22 year-old admitted directly from outside facility for diabetic ketoacidosis and lactic acidosis. #1 DKA: Blood sugar at the outside facility was 667. PH was 7.23, PCO2 was 13 and serum bicarb was 7. He was started on IV insulin drip, received total of 4 L of IV fluids. Potassium is 4.2. Patient thinks that his insulin . He states that he takes his insulin daily as prescribed. He denies any symptoms suggestive of infection. Plan: Admit to ICU, critical care monitoring, keep on n.p.o., IV fluids, initiate DKA protocol with IV insulin drip, BMP every 4 hours, stat CBC, CMP, stat lactic acid, blood culture, urine culture, chest x-ray, urinalysis, critical care consult. #2 lactic acidosis/leukocytosis: Lactic acid was 6.8 at the outside facility. Patients tachycardic, has leukocytosis of 22,000. He is afebrile. At this time, this lactic acidosis and leukocytosis likely because of acute DKA. I doubt infection. Plan: Continue IV fluids, repeat lactic acid stat, blood culture, urine culture, chest x-ray, urinalysis. #3 pseudohyponatremia: Secondary to hyperglycemia. #4 type 1 diabetes mellitus: Patient has been on Lantus twice daily and pre-meal NovoLog. He was admitted 2 weeks ago for DKA. His hemoglobin C was 9.2 on February 09, 2018. Plan as above. #5 depression: Hold Cymbalta. #6 DVT prophylaxis: Subcu Lovenox. This note was generated with [employer] dictation software. It may contain incorrect words, spelling, and punctuation that were not noted in checking the note before signing. Code Visit Inpatient E&M: 48915 Init Hosp L3
--- NOTE | 2018-02-20 16:44 | HP.PCM_ITS ---
Problem List (1) Depression Status: Chronic (2) Lactic acidosis Status: Acute (3) Type 1 diabetes mellitus Status: Chronic (4) DKA (diabetic ketoacidoses) Status: Acute History of Present Illness Date of Admission: 02/20/18 Chief Complaint: Direct admission from outside facility for DKA. The patient is a 22 year old M with past medical history as mentioned above directly admitted from [facility] for diabetic ketoacidosis. Today, patient went to [facility] for symptoms of abdominal pain, nausea and vomiting. His illness started last night with diffuse abdominal pain, described as cramping and sometimes dull aching pain, 8 out of 10 in severity, not radiating, associated with nausea and vomiting persistently as well as weakness and headache. He complained of headache, generalized, throbbing headache that has been going on since last night. He thinks that his insulin was and that is why his sugar has been high. He denied chest pain or shortness of breath. He denies fever chills. He denies cough or sputum production. Reported diarrhea twice since last night, loose stool without blood. He denied urinary symptoms. At this time, he is afebrile, tachycardic, blood pressure stable, pulse ox is maintained on room air. Routine blood work from the outside facility reviewed. CBC revealed hemoglobin of 16.5, platelet count of 376,000, WBC of 22,000. Sodium was 130, potassium was 4.2, serum bicarbonate was 7, chloride 89, glucose was 667. Lactic acid was 6.8. ABG revealed pH of 7.23, PCO2 of 13 and PO2 of 141. He is being admitted for diabetic ketoacidosis with lactic acidosis. Past Medical History Past Medical History (Chronic Problems): Chronic Problems Depression (Chronic) Type 1 diabetes mellitus (Chronic) Allergies No Known Allergies Allergy (Verified 02/09/18 19:36) Home Medications: Ambulatory Orders Medication Instructions Recorded Insulin Glargine,Hum.rec.anlog 23 unit SQ BID 02/09/18 [Lantus] Duloxetine Hcl [Cymbalta] 30 mg PO UD #60 cap 02/11/18 Insulin Aspart [Novolog Vial] 10 unit SQ TIDCM #1 vial 02/11/18 Surgical History: no surgical history Psychiatric History: No pertinent psych hx Smoking Status: Never smoker Alcohol: None Drugs: None - *Family History Maternal History Items: No pertinent history Paternal History Items: No pertinent history Review of Systems Constitutional: Reports: Anorexia, Weakness, Fatigue. Denies: Chills, Fever Eyes: Denies: Blurred vision, Double vision, Drainage, Redness HEENT: Denies: Difficulty Hearing, Ear Pain, Eye Pain, Nasal Congestion, Sore Throat Cardiovascular: Denies: Chest Pain, Chest Pressure, Chest Tightness, Palpitations, Syncope Respiratory: Denies: Cough, Pleuritic Pain, Shortness of Breath, Sputum production Gastrointestinal: Reports: Abdominal Pain, Diarrhea, Nausea, Vomiting. Denies: Constipation Genitourinary: Denies: Dysuria, Frequency, Hematuria Musculoskeletal: Denies: Arm Pain, Back Pain, Foot Pain Skin: Reports: Dryness. Denies: Rash Neurological: Reports: Headaches. Denies: Balance problems, Double vision, Change in Speech, Slurred speech, Confusion, Focal weakness, Numbness Psychiatric: Reports: Depression. Denies: Anxiety Endocrine: Denies: Change in Body Habitus, Polydipsia VTE Information - Inpt Only VTE Present on Admission: No VTE Mechan Device Prophylaxis: None VTE Pharm Prophylaxis ordered?: Yes Patient Problems: Active and Suspected Problems Lactic acidosis (Acute) - Physical Exam General: Alert, Oriented x3, Cooperative, - - Mildly short of breath. HEENT: Atraumatic, PERRLA, EOMI Oral: No Gingival or Mucosal Lesions/ Ulcerations, Dry Mucosa Neck: Supple, No JVD, Negative Carotid Bruits, Trachea Midline, Thyroid Normal Size and Texture Lungs: Clear to auscultation, No rhonchi, No wheeze, No rales, Diminished Cardiovascular: Regular rate, Regular Rhythm, Normal S1, Normal S2, No murmurs, PMI Normal, Tachycardic Abdomen: Bowel Sounds Present, Soft, Non-Distended, No Hepato-splenomegaly, Tender - No guarding or rigidity. Extremities: No clubbing, No cyanosis, No edema Skin: No rashes, No breakdown Lymphatic: No Cervical, Supraclavicular, or Inguinal Adenopathy Neurological: Cranial nerves II-XII grossly intact, Motor Exam 5/5 strength throughout Psych/Mental Status: Anxious, Alert and oriented to time, place, person, mood and affect Vital Signs Temp Pulse Resp BP Pulse Ox 99.8 F H 131 H 14 117/58 L 100 02/20/18 16:18 02/20/18 16:18 02/20/18 16:18 02/20/18 16:18 02/20/18 16:18 Oxygen Delivery Method Room Air Weight: 140 lb Body Mass Index (BMI) 20.7 Finger Stick Blood Glucose 97 Intake and Output for Last 24 Hours 02/18/18 02/19/18 02/20/18 23:59 23:59 23:59 Output Total 575 / 575 Balance -575 / -575 Laboratory Tests Past 24 Hrs 02/20/18 16:15 MRSA (PCR) Pending POC Glucose 02/20/18 16:13 POC Glucose 268 H Laboratory data: CBC: Hemoglobin 16.5, WBC 22,000, platelet count 376,000. BMP: Sodium 130, potassium 4.2, chloride 89, serum bicarbonate 7, BUN 18, creatinine 0.89, glucose 667. Lactic acid 6.8. ABG: PH 7.23, PCO2 13, PO2 141. Assessment/Plan All Active Problems Lactic acidosis (Acute) DKA (diabetic ketoacidoses) (Acute) This is a 22 year-old admitted directly from outside facility for diabetic ketoacidosis and lactic acidosis. #1 DKA: Blood sugar at the outside facility was 667. PH was 7.23, PCO2 was 13 and serum bicarb was 7. He was started on IV insulin drip, received total of 4 L of IV fluids. Potassium is 4.2. Patient thinks that his insulin . He states that he takes his insulin daily as prescribed. He denies any symptoms suggestive of infection. Plan: Admit to ICU, critical care monitoring , keep on n.p.o., IV fluids, initiate DKA protocol with IV insulin drip, BMP every 4 hours, stat CBC, CMP, stat lactic acid, blood culture, urine culture, chest x-ray, urinalysis, critical care consult. #2 lactic acidosis/leukocytosis: Lactic acid was 6.8 at the outside facility. Patients tachycardic, has leukocytosis of 22,000. He is afebrile. At this time , this lactic acidosis and leukocytosis likely because of acute DKA. I doubt infection. Plan: Continue IV fluids, repeat lactic acid stat, blood culture, urine culture, chest x-ray, urinalysis. #3 pseudohyponatremia: Secondary to hyperglycemia. #4 type 1 diabetes mellitus: Patient has been on Lantus twice daily and pre- meal NovoLog. He was admitted 2 weeks ago for DKA. His hemoglobin C was 9.2 on February 09, 2018. Plan as above. #5 depression: Hold Cymbalta. #6 DVT prophylaxis: Subcu Lovenox. This note was generated with [employer] dictation software. It may contain incorrect words, spelling, and punctuation that were not noted in checking the note before signing. Code Visit Inpatient E&M: 71627 Init Hosp L3
[2018-02-20] MEDS: 0.9% Normal Saline 1,000 ML 500 ML IV (17:04)
[2018-02-20] MEDS: 0.9% NaCl Peripheral Flush Adult/Peds IV ×2 (17:04→18:02)
[2018-02-20] MEDS: CHLORHEXIDINE GLUC 2% CLOTH 1 EACH TOWELETTE TOPICAL (17:05)
--- NOTE | 2018-02-20 17:22 | RAD_ITS ---
STUDY: X-RAY CHEST REASON FOR EXAM: Male, 22 years old. Cough, ketoacidosis TECHNIQUE: Portable AP COMPARISON: None. FINDINGS: The lungs are clear and expanded. There is no demonstrated pleural abnormality. There are EKG leads overlying the thorax. Normal size heart. Normal mediastinum and prateek. Normal visualized pulmonary arteries. Normal visualized aortic arch and descending thoracic aorta. Normal visualized thoracic spine. Normal visualized ribs, clavicles, and shoulders. There is no demonstrated abnormality of the visualized soft tissue structures of the upper abdomen. RAD/Chest 1 View (Portable) IMPRESSION: No acute cardiopulmonary process. Electronically Signed: Sarah Richter MD at 18:03 EDT Tel , Service support ,
[2018-02-20 17:29] LABS: Absolute Lymphocyte Count 2.12 X10^3/ul (0.83-4.51); Absolute Neutrophil Count 23.6 X10^3/uL (2.0-7.7); Basophil# 0.02 X10^3/uL; Basophil% 0.1 % (0-1); Hematocrit 42.3 % (40-54); Hemoglobin 15.1 g/dl (13.0-16.5); Lymphocyte # 2.12 X10^3/ul (4.0); Lymphocyte % 8.1 % (19-41); Mean Corp Hgb Conc 35.7 g/gl (32-36); Mean Corpuscular Hgb 32.8 pg (27.0-32.0); Mean Corpuscular Volume 91.8 fL (80-94); Mean Platelet Vol. 9.4 fl (6.2-12.0); Monocyte% 0.8 % (0-10); Neutrophil # 23.64 X10^3/uL (2.7-7.7); Neutrophil % 90.6 % (47-70); Platelet Count 261 K/mm3 (150-450); RBC Distribution Width CV 13.2 % (11.6-14.6); RBC Distribution Width SD 43.5 fl (35.1-43.9); Red Blood Count 4.61 M/mm3 (4.6-6.2); White Blood Count 26.1 K/mm3 (4.4-11.0)
[2018-02-20 17:36] LABS: Differential Indicated SCAN CRITERIA MET; POSITIVE COUNT NO; POSITIVE DIFFERENTIAL YES; POSITIVE MORPHOLOGY YES
[2018-02-20 17:42] LABS: ALB/GLOB Ratio 1.3 RATIO (0.9-2.4); AST(SGOT) 18 U/L (15-37); Alanine Aminotransfer ALT/SGPT 22 U/L (16-61); Albumin, Serum 3.6 g/dL (3.2-5.0); Alkaline Phosphatase 110 U/L (45-117); Anion Gap 20 (5-15); BUN 15 mg/dL (7-18); BUN/Creat Ratio 14.4 RATIO (10-20); Calcium,Total 7.6 mg/dL (8.5-10.1); Chloride 113 mmol/L (98-107); Creatinine, Serum 1.04 mg/dL (0.70-1.30); EST Glomerular Filtration Rate 94 mL/min (>60); Est Glom Filt Rate - Afr Amer 114 mL/min (>60); Estimated Creatinine Clearance 99.22 ml/min; Globulin 2.8 g/dL (2.2-4.2); Glucose 239 mg/dL (74-106); Lactic Acid 2.2 mmol/L (0.4-2.0); Potassium 4.2 mmol/L (3.5-5.1); Protein, Total 6.4 g/dL (6.4-8.2); Sodium Level 142 mmol/L (136-145)
[2018-02-20] MEDS: proMETHazine 25 MG/ML Syringe 6.25 MG IV (18:02)
[2018-02-20 18:06] LABS: M R Staph aureus DNA By PCR Negative (Negative); Probe Check PASS; Specimen Processing Control PASS
[2018-02-20] MEDS: Morphine 2 MG/ML Syringe IV (18:13)
[2018-02-20 18:26] LABS: Bedside Glucose 218 mg/dL (70-110)
[2018-02-20 18:26] LABS: Red Blood Cells-Urine 0 SEEN /hpf (0-5); Squamous Epithelial Cells - UA 0 SEEN /hpf (0-5); White Blood Cells 0 SEEN /hpf (0-5)
[2018-02-20 18:26] LABS: Bedside Glucose 187 mg/dL (70-110)
[2018-02-20 18:28] LABS: Bacteria 0 SEEN /hpf (None Seen); Mucous, Urine 0 SEEN /hpf (<or=2+)
[2018-02-20 18:33] LABS: Color, Urine Straw (Yellow); Glucose, Dipstick 1000 mg/dl (Normal); Leukocyte Esterase-Dipstick Negative /ul (Negative); Nitrite-Dipstick Negative (Negative); Occult Blood-Urine 10 /ul (Negative); Protein-Dipstick 30 mg/dl (Negative); Urine Bilirubin Dipstick Negative (Negative); Urine Clarity Clear (Clear); Urine Urobilinogen Normal (Normal)
[2018-02-20 18:47] LABS: Ketone-Dipstick 150 mg/dl (Negative)
[2018-02-20 19:10] LABS: Bedside Glucose 153 mg/dL (70-110)
[2018-02-20 21:15] LABS: Bedside Glucose 188 mg/dL (70-110)
[2018-02-20 21:16] LABS: Bedside Glucose 177 mg/dL (70-110)
[2018-02-20 21:34] LABS: Anion Gap 17 (5-15); BUN 11 mg/dL (7-18); BUN/Creat Ratio 10.9 RATIO (10-20); Calcium,Total 7.5 mg/dL (8.5-10.1); Chloride 114 mmol/L (98-107); Creatinine, Serum 1.01 mg/dL (0.70-1.30); EST Glomerular Filtration Rate 97 mL/min (>60); Est Glom Filt Rate - Afr Amer 117 mL/min (>60); Estimated Creatinine Clearance 102.17 ml/min; Glucose 170 mg/dL (74-106); Potassium 4.3 mmol/L (3.5-5.1); Sodium Level 143 mmol/L (136-145)
[2018-02-20 22:21] LABS: Bedside Glucose 157 mg/dL (70-110)
[2018-02-20 23:40] LABS: Lactic Acid 0.8 mmol/L (0.4-2.0)
[2018-02-21] VITALS (14 sets, daily range): BP systolic 92–131; BP diastolic 37–84; PULSE 95–128; RESP 11–18; TEMP 36.6–37.6; O2SAT 97–100
[2018-02-21] MEDS: proMETHazine 25 MG/ML Syringe 6.25 MG IV (00:10)
[2018-02-21] MEDS: Morphine 2 MG/ML Syringe IV (00:10)
[2018-02-21] MEDS: 0.9% NaCl Peripheral Flush Adult/Peds IV (00:11)
[2018-02-21 00:25] LABS: Bedside Glucose 165 mg/dL (70-110)
[2018-02-21 00:25] LABS: Bedside Glucose 171 mg/dL (70-110)
[2018-02-21 01:24] LABS: Anion Gap 13 (5-15); BUN 9 mg/dL (7-18); BUN/Creat Ratio 9.3 RATIO (10-20); Calcium,Total 7.6 mg/dL (8.5-10.1); Chloride 114 mmol/L (98-107); Creatinine, Serum 0.97 mg/dL (0.70-1.30); EST Glomerular Filtration Rate 102 mL/min (>60); Est Glom Filt Rate - Afr Amer 124 mL/min (>60); Estimated Creatinine Clearance 106.38 ml/min; Glucose 161 mg/dL (74-106); Potassium 3.8 mmol/L (3.5-5.1); Sodium Level 143 mmol/L (136-145)
[2018-02-21 02:06] LABS: Bedside Glucose 156 mg/dL (70-110)
[2018-02-21 02:06] LABS: Bedside Glucose 158 mg/dL (70-110)
[2018-02-21 04:11] LABS: Bedside Glucose 128 mg/dL (70-110)
[2018-02-21 04:11] LABS: Bedside Glucose 120 mg/dL (70-110)
[2018-02-21 05:08] LABS: Absolute Lymphocyte Count 1.82 X10^3/ul (0.83-4.51); Absolute Neutrophil Count 15.1 X10^3/uL (2.0-7.7); Basophil# 0.02 X10^3/uL; Basophil% 0.1 % (0-1); Eosinophil# 0.01 X10^3/uL; Eosinophils% 0.1 % (0-5); Hematocrit 37.5 % (40-54); Hemoglobin 13.7 g/dl (13.0-16.5); Lymphocyte # 1.82 X10^3/ul (4.0); Lymphocyte % 9.8 % (19-41); Mean Corp Hgb Conc 36.5 g/gl (32-36); Mean Corpuscular Volume 90.4 fL (80-94); Monocyte# 1.66 X10^3/uL; Monocyte% 8.9 % (0-10); Neutrophil # 15.07 X10^3/uL (2.7-7.7); Neutrophil % 80.7 % (47-70); Platelet Count 270 K/mm3 (150-450); RBC Distribution Width CV 13.1 % (11.6-14.6); RBC Distribution Width SD 42.6 fl (35.1-43.9); Red Blood Count 4.15 M/mm3 (4.6-6.2); White Blood Count 18.7 K/mm3 (4.4-11.0)
[2018-02-21] MEDS: Enoxaparin 40 MG/0.4 ML Syringe SC (05:09)
[2018-02-21 05:13] LABS: Differential Indicated SCAN CRITERIA MET; POSITIVE COUNT NO; POSITIVE DIFFERENTIAL YES; POSITIVE MORPHOLOGY NO
[2018-02-21 05:19] LABS: Anion Gap 12 (5-15); BUN 9 mg/dL (7-18); BUN/Creat Ratio 9.4 RATIO (10-20); Calcium,Total 7.6 mg/dL (8.5-10.1); Chloride 114 mmol/L (98-107); Creatinine, Serum 0.96 mg/dL (0.70-1.30); EST Glomerular Filtration Rate 103 mL/min (>60); Est Glom Filt Rate - Afr Amer 125 mL/min (>60); Estimated Creatinine Clearance 107.49 ml/min; Glucose 113 mg/dL (74-106); Potassium 3.6 mmol/L (3.5-5.1); Sodium Level 146 mmol/L (136-145)
[2018-02-21 05:24] LABS: Phosphorus 1.8 mg/dL (2.5-4.9)
[2018-02-21 05:51] LABS: Differential Comment SCANNED
[2018-02-21 06:25] LABS: Bedside Glucose 101 mg/dL (70-110)
[2018-02-21 06:25] LABS: Bedside Glucose 92 mg/dL (70-110)
[2018-02-21 08:41] LABS: Bedside Glucose 88 mg/dL (70-110)
[2018-02-21 08:41] LABS: Bedside Glucose 117 mg/dL (70-110)
--- NOTE | 2018-02-21 10:27 | PCM.PN.HOSP ---
Patient Problems: Active and Suspected Problems Lactic acidosis (Acute) Subjective: vomited x 1. has not eaten much in way of breakfast. has thought of suicide in past, but no current plans. no homicidal ideation. Vitals/I&O's: Vital Signs Temp Pulse Resp BP Pulse Ox 36.6 C 106 H 11 L 112/61 100 02/21/18 04:00 02/21/18 06:00 02/21/18 06:00 02/21/18 06:00 02/21/18 06:00 Oxygen Delivery Method Room Air Weight: 63.503 kg Body Mass Index (BMI) 20.7 Finger Stick Blood Glucose 88 Intake and Output for Last 24 Hours 02/19/18 02/20/18 02/21/18 23:59 23:59 23:59 Intake Total 576 / 576 2068.8 / 2068.8 Output Total 1125 / 1125 700 / 700 Balance -549 / -549 1368.8 / 1368.8 General: Alert, Cooperative, No apparent distress HEENT: Atraumatic Neck: No Nodes, Thyroid Normal Size and Texture Lungs: Clear to auscultation, Normal air movement, No rhonchi, No wheeze Cardiovascular: Regular rate, Regular Rhythm, Normal S1, Normal S2 Abdomen: Bowel Sounds Present, Soft, Non Tender, Non-Distended Extremities: No edema, No Calf Tenderness Skin: No rashes, No breakdown Psych/Mental Status: Normal Affect, Appropriate Laboratory Results 02/20/18 16:13: POC Glucose 268 H 02/20/18 16:15: MRSA (PCR) Negative 02/20/18 17:00: WBC 26.1 H, RBC 4.61, Hgb 15.1, Hct 42.3, MCV 91.8, MCH 32.8 H, MCHC 35.7, RDW 13.2, RDW Differential 43.5, Plt Count 261, MPV 9.4, Immature Gran % (Auto) 0.400, Neut % (Auto) 90.6 H, Lymph % (Auto) 8.1 L, [place] % (Auto) 0.8, Eos % (Auto) 0.0, Baso % (Auto) 0.1, Absolute Neuts (auto) 23.6 H, Absolute Lymphs (auto) 2.12, Total Counted Not Reportable, Differential Comment 02/20/18 17:00: Sodium 142, Potassium 4.2, Chloride 113 H, Carbon Dioxide 9.0 L*, Anion Gap 20 H, BUN 15, Creatinine 1.04, Estim Creat Clear Calc 99.22, Est GFR (MDRD) Af Amer 114, Est GFR (MDRD) Non-Af 94, BUN/Creatinine Ratio 14.4, Glucose 239 H, Calcium 7.6 L, Total Bilirubin 0.60, AST 18, ALT 22, Alkaline Phosphatase 110, Total Protein 6.4, Albumin 3.6, Globulin 2.8, Albumin/Globulin Ratio 1.3 02/20/18 17:00: Lactic Acid 2.2 H 02/20/18 17:09: POC Glucose 218 H 02/20/18 18:10: Urine Color Straw, Urine Clarity Clear, Urine pH 5.0, Ur Specific [place] 1.020, Urine Protein 30 H, Urine Glucose (UA) 1000 H, Urine Ketones 150 H, Urine Occult Blood 10 H, Urine Nitrite Negative, Urine Bilirubin Negative, Urine Urobilinogen Normal, Ur Leukocyte Esterase Negative, Urine RBC 0 SEEN, Urine WBC 0 SEEN, Ur Squamous Epith Cells 0 SEEN, Urine Bacteria 0 SEEN, Urine Mucus 0 SEEN 02/20/18 18:19: POC Glucose 187 H 02/20/18 18:59: POC Glucose 153 H 02/20/18 20:20: POC Glucose 188 H 02/20/18 21:10: POC Glucose 177 H 02/20/18 21:15: Sodium 143, Potassium 4.3, Chloride 114 H, Carbon Dioxide 12.0 L, Anion Gap 17 H, BUN 11, Creatinine 1.01, Estim Creat Clear Calc 102.17, Est GFR (MDRD) Af Amer 117, Est GFR (MDRD) Non-Af 97, BUN/Creatinine Ratio 10.9, Glucose 170 H, Calcium 7.5 L 02/20/18 21:58: POC Glucose 157 H 02/20/18 23:04: POC Glucose 171 H 02/20/18 23:10: Lactic Acid 0.8 02/21/18 00:05: POC Glucose 165 H 02/21/18 01:01: POC Glucose 158 H 02/21/18 01:02: Sodium 143, Potassium 3.8, Chloride 114 H, Carbon Dioxide 16.0 L, Anion Gap 13, BUN 9, Creatinine 0.97, Estim Creat Clear Calc 106.38, Est GFR (MDRD) Af Amer 124, Est GFR (MDRD) Non-Af 102, BUN/Creatinine Ratio 9.3 L, Glucose 161 H, Calcium 7.6 L 02/21/18 01:59: POC Glucose 156 H 02/21/18 03:09: POC Glucose 120 H 02/21/18 04:07: POC Glucose 128 H 02/21/18 04:50: WBC 18.7 H, RBC 4.15 L, Hgb 13.7, Hct 37.5 L, MCV 90.4, MCH 33.0 H, MCHC 36.5 H, RDW 13.1, RDW Differential 42.6, Plt Count 270, MPV 9.0, Immature Gran % (Auto) 0.400, Neut % (Auto) 80.7 H, Lymph % (Auto) 9.8 L, [place] % (Auto) 8.9, Eos % (Auto) 0.1, Baso % (Auto) 0.1, Absolute Neuts (auto) 15.1 H, Absolute Lymphs (auto) 1.82, Total Counted Not Reportable, Differential Comment SCANNED, Diff Path Review January foll 02/21/18 04:50: Sodium 146 H, Potassium 3.6, Chloride 114 H, Carbon Dioxide 20.0 L, Anion Gap 12, BUN 9, Creatinine 0.96, Estim Creat Clear Calc 107.49, Est GFR (MDRD) Af Amer 125, Est GFR (MDRD) Non-Af 103, BUN/Creatinine Ratio 9.4 L, Glucose 113 H, Calcium 7.6 L 02/21/18 04:50: Phosphorus 1.8 L, Magnesium 2.0 02/21/18 05:10: POC Glucose 101 02/21/18 06:14: POC Glucose 92 02/21/18 06:55: POC Glucose 88 02/21/18 08:29: POC Glucose 117 H Current Medications Chlorhexidine Gluconate () 1 each TOPICAL DAILY [facility] Last Admin: 02/21/18 10:06 Dose: Not Given Enoxaparin Sodium (Lovenox) 40 mg SC DAILY@0600 [facility] Last Admin: 02/21/18 05:09 Dose: 40 mg Insulin Aspart 100 unit/ (Sodium Chloride) 100 mls @ 6.35 mls/hr IV .[id number] [facility]; 0.1 UNITS/KG/HR PRN Reason: Protocol Last Admin: 02/21/18 10:06 Dose: Not Given Potassium Chloride/Dextrose/Sod Cl (Kcl 20meq In D5.45ns 1000ml) 1,000 mls @ 150 mls/hr IV .[id number] [facility] Last Admin: 02/21/18 10:05 Dose: 150 mls/hr Insulin Glargine (Lantus (Bkc)) 23 units SC BID [facility] Last Admin: 02/21/18 06:15 Dose: 23 u Insulin Human Lispro (Humalog Kwikpen (Bkc)) 0 unit SC ACHS KRISTINE PRN Reason: Protocol Last Admin: 02/21/18 10:04 Dose: Not Given Insulin Human Lispro (Humalog Kwikpen (Bkc)) 10 unit SC TIDAC [facility] Last Admin: 02/21/18 10:05 Dose: Not Given Magnesium Hydroxide (Milk Of Magnesia) 30 ml PO DAILY PRN PRN PRN Reason: Constipation Morphine Sulfate () 1 - 2 mg IV Q4H PRN PRN PRN Reason: SEVERE PAIN (6-10/10) Last Admin: 02/21/18 00:10 Dose: 2 mg Ondansetron HCl (Zofran) 4 mg IV Q6H PRN PRN PRN Reason: NAUSEA/VOMITING Potassium Phos/Sodium Phos (Neutra-Phos Packet) 1 packet PO 4X/DAY [facility] Promethazine HCl (Phenergan) 6.25 mg IV Q6H PRN PRN PRN Reason: NAUSEA/VOMITING Last Admin: 02/21/18 00:10 Dose: 6.25 mg Sodium Chloride () 5 - 30 ml IV UD PRN PRN Reason: SALINE FLUSH Last Admin: 02/21/18 00:11 Dose: 30 ml Medical Necessity - Tobacco Use Smoking Status: Never smoker Assessment/Plan All Active Problems Lactic acidosis (Acute) DKA (diabetic ketoacidoses) (Acute) 1. Diabetic ketoacidosis I suspect is due to noncompliance. Reviewed records to [facility] [place] and so the patient had at least 3 visits to [facility] in November for look like diabetic ketoacidosis. I do not have the actual notes for just lab work on different occasions. Patient states that he seen his general matcher within the past few months but apparently he was using Levemir which she thinks causes symptoms. I do not doubt the patient may have been using Levemir if at all but question the known that the fact that he actually has insulin without getting prescriptions. Patient does endorse that he did not last picker the NovoLog that was prescribed for him during last admission the last week. I did not sympathize with patient's and incising that it certainly difficult having a chronic medical condition that you have no control over but but he needs to also help himself to help prevent him from getting into the hospital as without adequate control of his medical conditions will continue to get worse due to poorly controlled diabetes. I asked patient if he had any suicidal ideation but he said he has thought of the past but has no current plan and has no homicidal ideation at this time. I feel it would be prudent for the patient have some counseling after discharge to help him cope with having diabetes but there may be also other social issues as well. Patient is able to eat and keep it down plan is for the patient to be discharged home and I will send prescriptions to the pharmacy here for him to receive his Levemir and NovoLog and insulin needles. Patient states that he has a glucometer at home as well as lancets and testing strips. Code Visit Inpatient E&M: 95895 Subs Hosp L2
--- NOTE | 2018-02-21 10:38 | PN_ITS ---
Patient Problems: Active and Suspected Problems Lactic acidosis (Acute) Subjective: vomited x 1. has not eaten much in way of breakfast. has thought of suicide in past, but no current plans. no homicidal ideation. Vitals/I&O's: Vital Signs Temp Pulse Resp BP Pulse Ox 36.6 C 106 H 11 L 112/61 100 02/21/18 04:00 02/21/18 06:00 02/21/18 06:00 02/21/18 06:00 02/21/18 06:00 Oxygen Delivery Method Room Air Weight: 63.503 kg Body Mass Index (BMI) 20.7 Finger Stick Blood Glucose 88 Intake and Output for Last 24 Hours 02/19/18 02/20/18 02/21/18 23:59 23:59 23:59 Intake Total 576 / 576 2068.8 / 2068.8 Output Total 1125 / 1125 700 / 700 Balance -549 / -549 1368.8 / 1368.8 General: Alert, Cooperative, No apparent distress HEENT: Atraumatic Neck: No Nodes, Thyroid Normal Size and Texture Lungs: Clear to auscultation, Normal air movement, No rhonchi, No wheeze Cardiovascular: Regular rate, Regular Rhythm, Normal S1, Normal S2 Abdomen: Bowel Sounds Present, Soft, Non Tender, Non-Distended Extremities: No edema, No Calf Tenderness Skin: No rashes, No breakdown Psych/Mental Status: Normal Affect, Appropriate Laboratory Results 02/20/18 16:13: POC Glucose 268 H 02/20/18 16:15: MRSA (PCR) Negative 02/20/18 17:00: WBC 26.1 H, RBC 4.61, Hgb 15.1, Hct 42.3, MCV 91.8, MCH 32.8 H, MCHC 35.7, RDW 13.2, RDW Differential 43.5, Plt Count 261, MPV 9.4, Immature Gran % (Auto) 0.400, Neut % (Auto) 90.6 H, Lymph % (Auto) 8.1 L, [place] % (Auto) 0.8, Eos % (Auto) 0.0, Baso % (Auto) 0.1, Absolute Neuts (auto) 23.6 H, Absolute Lymphs (auto) 2.12, Total Counted Not Reportable, Differential Comment 02/20/18 17:00: Sodium 142, Potassium 4.2, Chloride 113 H, Carbon Dioxide 9.0 L* , Anion Gap 20 H, BUN 15, Creatinine 1.04, Estim Creat Clear Calc 99.22, Est GFR (MDRD) Af Amer 114, Est GFR (MDRD) Non-Af 94, BUN/Creatinine Ratio 14.4, Glucose 239 H, Calcium 7.6 L, Total Bilirubin 0.60, AST 18, ALT 22, Alkaline Phosphatase 110, Total Protein 6.4, Albumin 3.6, Globulin 2.8, Albumin/Globulin Ratio 1.3 02/20/18 17:00: Lactic Acid 2.2 H 02/20/18 17:09: POC Glucose 218 H 02/20/18 18:10: Urine Color Straw, Urine Clarity Clear, Urine pH 5.0, Ur Specific [place] 1.020, Urine Protein 30 H, Urine Glucose (UA) 1000 H, Urine Ketones 150 H, Urine Occult Blood 10 H, Urine Nitrite Negative, Urine Bilirubin Negative, Urine Urobilinogen Normal, Ur Leukocyte Esterase Negative, Urine RBC 0 SEEN, Urine WBC 0 SEEN, Ur Squamous Epith Cells 0 SEEN, Urine Bacteria 0 SEEN , Urine Mucus 0 SEEN 02/20/18 18:19: POC Glucose 187 H 02/20/18 18:59: POC Glucose 153 H 02/20/18 20:20: POC Glucose 188 H 02/20/18 21:10: POC Glucose 177 H 02/20/18 21:15: Sodium 143, Potassium 4.3, Chloride 114 H, Carbon Dioxide 12.0 L , Anion Gap 17 H, BUN 11, Creatinine 1.01, Estim Creat Clear Calc 102.17, Est GFR (MDRD) Af Amer 117, Est GFR (MDRD) Non-Af 97, BUN/Creatinine Ratio 10.9, Glucose 170 H, Calcium 7.5 L 02/20/18 21:58: POC Glucose 157 H 02/20/18 23:04: POC Glucose 171 H 02/20/18 23:10: Lactic Acid 0.8 02/21/18 00:05: POC Glucose 165 H 02/21/18 01:01: POC Glucose 158 H 02/21/18 01:02: Sodium 143, Potassium 3.8, Chloride 114 H, Carbon Dioxide 16.0 L , Anion Gap 13, BUN 9, Creatinine 0.97, Estim Creat Clear Calc 106.38, Est GFR ( MDRD) Af Amer 124, Est GFR (MDRD) Non-Af 102, BUN/Creatinine Ratio 9.3 L, Glucose 161 H, Calcium 7.6 L 02/21/18 01:59: POC Glucose 156 H 02/21/18 03:09: POC Glucose 120 H 02/21/18 04:07: POC Glucose 128 H 02/21/18 04:50: WBC 18.7 H, RBC 4.15 L, Hgb 13.7, Hct 37.5 L, MCV 90.4, MCH 33.0 H, MCHC 36.5 H, RDW 13.1, RDW Differential 42.6, Plt Count 270, MPV 9.0, Immature Gran % (Auto) 0.400, Neut % (Auto) 80.7 H, Lymph % (Auto) 9.8 L, [place] % (Auto) 8.9, Eos % (Auto) 0.1, Baso % (Auto) 0.1, Absolute Neuts (auto) 15.1 H , Absolute Lymphs (auto) 1.82, Total Counted Not Reportable, Differential Comment SCANNED, Diff Path Review January foll 02/21/18 04:50: Sodium 146 H, Potassium 3.6, Chloride 114 H, Carbon Dioxide 20.0 L, Anion Gap 12, BUN 9, Creatinine 0.96, Estim Creat Clear Calc 107.49, Est GFR (MDRD) Af Amer 125, Est GFR (MDRD) Non-Af 103, BUN/Creatinine Ratio 9.4 L, Glucose 113 H, Calcium 7.6 L 02/21/18 04:50: Phosphorus 1.8 L, Magnesium 2.0 02/21/18 05:10: POC Glucose 101 02/21/18 06:14: POC Glucose 92 02/21/18 06:55: POC Glucose 88 02/21/18 08:29: POC Glucose 117 H Current Medications Chlorhexidine Gluconate () 1 each TOPICAL DAILY [facility] Last Admin: 02/21/18 10:06 Dose: Not Given Enoxaparin Sodium (Lovenox) 40 mg SC DAILY@0600 [facility] Last Admin: 02/21/18 05:09 Dose: 40 mg Insulin Aspart 100 unit/ (Sodium Chloride) 100 mls @ 6.35 mls/hr IV .[id number] [facility]; 0.1 UNITS/KG/HR PRN Reason: Protocol Last Admin: 02/21/18 10:06 Dose: Not Given Potassium Chloride/Dextrose/Sod Cl (Kcl 20meq In D5.45ns 1000ml) 1,000 mls @ 150 mls/hr IV .[id number] [facility] Last Admin: 02/21/18 10:05 Dose: 150 mls/hr Insulin Glargine (Lantus (Bkc)) 23 units SC BID [facility] Last Admin: 02/21/18 06:15 Dose: 23 u Insulin Human Lispro (Humalog Kwikpen (Bkc)) 0 unit SC ACHS KRISTINE PRN Reason: Protocol Last Admin: 02/21/18 10:04 Dose: Not Given Insulin Human Lispro (Humalog Kwikpen (Bkc)) 10 unit SC TIDAC [facility] Last Admin: 02/21/18 10:05 Dose: Not Given Magnesium Hydroxide (Milk Of Magnesia) 30 ml PO DAILY PRN PRN PRN Reason: Constipation Morphine Sulfate () 1 - 2 mg IV Q4H PRN PRN PRN Reason: SEVERE PAIN (6-10/10) Last Admin: 02/21/18 00:10 Dose: 2 mg Ondansetron HCl (Zofran) 4 mg IV Q6H PRN PRN PRN Reason: NAUSEA/VOMITING Potassium Phos/Sodium Phos (Neutra-Phos Packet) 1 packet PO 4X/DAY [facility] Promethazine HCl (Phenergan) 6.25 mg IV Q6H PRN PRN PRN Reason: NAUSEA/VOMITING Last Admin: 02/21/18 00:10 Dose: 6.25 mg Sodium Chloride () 5 - 30 ml IV UD PRN PRN Reason: SALINE FLUSH Last Admin: 02/21/18 00:11 Dose: 30 ml Medical Necessity - Tobacco Use Smoking Status: Never smoker Assessment/Plan All Active Problems Lactic acidosis (Acute) DKA (diabetic ketoacidoses) (Acute) 1. Diabetic ketoacidosis * I suspect is due to noncompliance. Reviewed records to [facility] and so the patient had at least 3 visits to [facility] in November for look like diabetic ketoacidosis. I do not have the actual notes for just lab work on different occasions. Patient states that he seen his lacemaker within the past few months but apparently he was using Levemir which she thinks causes symptoms. I do not doubt the patient may have been using Levemir if at all but question the known that the fact that he actually has insulin without getting prescriptions. 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 I did not sympathize with patient's and incising that it certainly difficult having a chronic medical condition that you have no control over but but he needs to also help himself to help prevent him from getting into the hospital as without adequate control of his medical conditions will continue to get worse due to poorly controlled diabetes. * I asked patient if he had any suicidal ideation but he said he has thought of the past but has no current plan and has no homicidal ideation at this time. I feel it would be prudent for the patient have some counseling after discharge to help him cope with having diabetes but there may be also other social issues as well. * Patient is able to eat and keep it down plan is for the patient to be discharged home and I will send prescriptions to the pharmacy here for him to receive his Levemir and NovoLog and insulin needles. Patient states that he has a glucometer at home as well as lancets and testing strips. Code Visit Inpatient E&M: 20521 Subs Hosp L2
--- NOTE | 2018-02-21 10:54 | CASEMGMT ---
Social Work Assessment Referral Date: 02/21/18 Date of Assessment: 02/21/18 Reason for Consult: Depression and Anxiety Informant: Mariaelena Levy RN Personal Status: Pt presents with flat affect as evidenced by no change in expression or tone of voice throughout conversation. No visitors present during assessment. Pt is alert and oriented x4, and able to participate in assessment. Reports to live with his brother and is independent with ADL's. He nor his brother drive and rely on their mother for transportation. Mother is employed FT. Pt is presently unemployed. Did not graduate from high school but is able to read and write. Claims to have adequate support and necessities. Pt's PCP is Dr. Mlaik in [place] and his housekeeping supervisor hotel is Dr. Jeramie Garcia. He is unsure when he saw either of these physicians last. Pt states that transportation is an issue, and educate how to get transportation to medical appointments through [facility]. Pt claims that he is able to manage his insulin and does not have issues obtaining it from the pharmacy - [facility] in [place]. Will have scripts filled upon d/c from [facility] prior to leaving facility for convenience. Substance Use Hx: Pt denies hx of substance use/abuse. No supporting evidence to indicate otherwise. Mental Health Hx: Diagnoses: Depression and Anxiety Stressors: Denies new stressors SI or HI? No Active Plan? Denies Meds: Cymbalta Prescribed by: Dr. Rivera Pt reports a hx of depression and anxiety. States that he went to counseling a long time ago at [facility] in [place]. When requested that he further elaborate on a long time ago pt is unable to provide more clear description and states he does not know. Pt is agreeable to SW setting up an appointment for counseling/psychiatric services closer to his home in [place]. Pt confirms that Dr. Rivera did prescribe him Cymbalta, but he did not pear picker the prescription and has not been taking it. Pt reports hx of SI and past attempt, but states that he was not hospitalized. Denies SI or intent/plan to complete suicide. Denies access to guns. Expresses futuristic outlook as evidenced by talking about needing to get linked with counseling at discharge and coordinating transportation with his mother for necessary appointments at discharge. Claims that he was on medication in the past, but has not been for several years. Pt denies having reviewed coping skills with a counselor in the past, and denies having coping skills. Inquire if pt has hobbies and he states, not really. Review coping skills with pt and emphasize deep breathing as he reports shortness of breath during anxiety attacks. Pt expresses understanding and provide with a list of coping skills to review. Placed call to [facility] [place] in [place] at [phone] requesting a return phone call to establish an initial appointment. Will attempt to setup [facility] once appointment confirmed. Resources: JFS: Medicaid Transportation: [facility] Counseling: To be established Interventions: Educated to appropriate coping skills to utilize during symptom exacerbation for anxiety/depression Setting up counseling appointment for management of medications and mental health diagnoses on discharge Linking with transportation for medical and counseling appointments through managed Medicaid plan. Plan: Return home. Medications to be filled at [facility] Pharmacy to avoid pt not receiving scripts. Counseling appointment to be made prior to discharge with transportation established, awaiting return phone call from counseling agency. SW to continue to follow and assist with discharge planning. Jessica Akbar, SENIOR SUSTAINABILITY CONSULTANT, CLAIMS DIRECTOR
[2018-02-21 11:11] LABS: Bedside Glucose 259 mg/dL (70-110)
[2018-02-21] MEDS: Na Biphos/Potassium Phosphate PACKET 1 PACKET PO (12:15)
--- NOTE | 2018-02-21 12:16 | CASEMGMT ---
Social Work Note Did not hear from original agency and contacted [facility] who took pt's information and state they need to speak with him to setup an appointment and will call on Saturday. Updated pt and provided with contact information for agency along with how to setup transport through insurance once appointment confirmed. No additional needs expressed at this time. Jessica Akbar, BREAK OUT WORKER, SOLDERING MACHINE OPERATOR HELPER
[2018-02-21] MEDS: Insulin Lispro 100 UNIT/ML INSULN.PEN 10 UNIT SC (12:17)
[2018-02-21] MEDS: Insulin Lispro 100 UNIT/ML INSULN.PEN SC (12:17)
--- NOTE | 2018-02-21 14:23 | DCINST_ITS ---
- Discharge Diagnoses Current Active Problems: Current Active and Chronic Problems Depression (Chronic) Lactic acidosis (Acute) Type 1 diabetes mellitus (Chronic) You will use the following diet at home:: Calorie/Carbohydrate Controlled ( specify 1200, 1400, etc) - 1800 kcal/day Your food should be the consistency of: Regular Your liquids should be the consistency of: Regular/Thin Discharge Activity: Return to Normal Activity Call your doctor if you observe: Fever of 101 or Higher, Shortness of breath, - - persistant hyperglycemia Instructions: Types of Insulin, Healthy Meals for Diabetes, Diabetes: Understanding Carbohydrates, Eating Out When You Have Diabetes Allergies/Adverse Reactions: Allergies No Known Allergies Allergy (Verified 02/09/18 19:36) Medications to take at Discharge Duloxetine Hcl [Cymbalta] 30 mg PO UD #60 cap 02/21/18 Insulin Aspart [Novolog Vial] 10 unit SQ TIDCM #1 vial 02/21/18 Insulin Glargine,Hum.rec.anlog [Lantus] 23 unit SQ BID #30 ml 02/21/18 [place], Insulin Disposable [Novofine Autocover 30G Needle] 1 ea MISCELL. UD #1 box 02/21/18 The following prescriptions were given: Duloxetine Hcl [Cymbalta] 30 mg PO UD #60 cap [place], Insulin Disposable [Novofine Autocover 30G Needle] 1 ea MISCELL. UD #1 box Insulin Glargine,Hum.rec.anlog [Lantus] 23 unit SQ BID #30 ml Insulin Aspart [Novolog Vial] 10 unit SQ TIDCM #1 vial Primary Care Physician: Care Physician,No Primary [Primary Care Provider] - Within 1 Week Please Follow Up With: Endocrinology When: 2-4 weeks Proposed Discharge Date: 02/21/18
--- NOTE | 2018-02-21 14:23 | PCM.DC.SUM ---
Discharge Date and Diagnosis - Problem List Patient Problems: Active and Suspected Problems Lactic acidosis (Acute) Date of Admission: 02/20/18 Date of Discharge: 02/21/18 - Primary Discharge Diagnosis Active and Suspected Problems Lactic acidosis (Acute) - Secondary Discharge Diagnosis Chronic Problems Depression (Chronic) Type 1 diabetes mellitus (Chronic) Hospital Course and Treatment Imaging Results: Clinical Impression(s) from Imaging Studies Chest X-Ray 02/20/18 17:22 IMPRESSION: No acute cardiopulmonary process. Electronically Signed: Sarah Richter MD at 18:03 EDT Tel , Service support , Operations: None Procedures: None Summary of Care Provided: The patient is a 22 year old M outside hospital with DKA. Please see the below documentation for further details. But essentially patient was on insulin drip and sugars improved. Diabetic ketoacidosis I suspect is due to noncompliance. Reviewed records to [facility] and so the patient had at least 3 visits to [facility] in November for look like diabetic ketoacidosis. I do not have the actual notes for just lab work on different occasions. Patient states that he seen his primary school teacher within the past few months but apparently he was using Levemir which she thinks causes symptoms. I do not doubt the patient may have been using Levemir if at all but question the known that the fact that he actually has insulin without getting prescriptions. 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 I did not sympathize with patient's and incising that it certainly difficult having a chronic medical condition that you have no control over but but he needs to also help himself to help prevent him from getting into the hospital as without adequate control of his medical conditions will continue to get worse due to poorly controlled diabetes. I asked patient if he had any suicidal ideation but he said he has thought of the past but has no current plan and has no homicidal ideation at this time. I feel it would be prudent for the patient have some counseling after discharge to help him cope with having diabetes but there may be also other social issues as well. Patient is able to eat and keep it down plan is for the patient to be discharged home and I will send prescriptions to the pharmacy here for him to receive his Levemir and NovoLog and insulin needles. Patient states that he has a glucometer at home as well as lancets and testing strips. [] Discharge Diet: 1800 Calorie Control Diet Discharge Activity: Return to Normal Activity Call your doctor if you observe: Fever of 101 or Higher, Shortness of breath, - - persistant hyperglycemia Home Medications: Medications to take at Discharge Duloxetine Hcl [Cymbalta] 30 mg PO UD #60 cap 02/21/18 Insulin Aspart [Novolog Vial] 10 unit SQ TIDCM #1 vial 02/21/18 Insulin Glargine,Hum.rec.anlog [Lantus] 23 unit SQ BID #30 ml 02/21/18 [place], Insulin Disposable [Novofine Autocover 30G Needle] 1 ea MISCELL. UD #1 box 02/21/18 Following Prescrptions Were Given to Patient: Duloxetine Hcl [Cymbalta] 30 mg PO UD #60 cap [place], Insulin Disposable [Novofine Autocover 30G Needle] 1 ea MISCELL. UD #1 box Insulin Glargine,Hum.rec.anlog [Lantus] 23 unit SQ BID #30 ml Insulin Aspart [Novolog Vial] 10 unit SQ TIDCM #1 vial Primary Care Physician: Care Physician,No Primary [Primary Care Provider] - Within 1 Week Please Follow Up With: Endocrinology When: 2-4 weeks Patient Instructions: Types of Insulin, Healthy Meals for Diabetes, Diabetes: Understanding Carbohydrates, Eating Out When You Have Diabetes Disposition: Home Minutes spent on discharge:: 32 Patient Condition:: Fair Medical Necessity - Tobacco Use Smoking Status: Never smoker Meaningful Use Info Meaningful Use Diagnoses (Choose all that apply): None applicable Code Visit OBSV E&M: 21253 Observation care discharge
--- NOTE | 2018-02-21 15:09 | NURSING ---
instructions for appts, phone numbers, how to call for transportation. he indicates understanding
[2018-03-05 10:50] LABS: Pathologist Review Reviewed
== END 2018-02-21 15:30 | disposition home or self-care (01) | DRG 295 ==
PROVIDERS: Internal Medicine Critical Care Medicine; Admitting Provider Hospitalist
DX: E10.10 Type 1 diabetes mellitus with ketoacidosis without coma (principal); Z79.4 Long term (current) use of insulin
CPT/HCPCS: 71045; 80048; 80053; 81001; 82962; 83605; 83735; 84100; 85025; 87040; 87086; 87088; 87641; 93005; J7030; A4216

== ENCOUNTER 2018-03-08 21:25 | Inpatient (IN) | payer MEDICAID, SELFPAY ==
[2018-03-08] VITALS (8 sets, daily range): BP systolic 113–146; BP diastolic 55–87; PULSE 131–151; RESP 13–18; TEMP 37.8; O2SAT 94–98; BMI 19.1; BMI 19.2
[2018-03-08 22:16] LABS: Bedside Glucose > 500 mg/dL (70-110)
--- NOTE | 2018-03-08 22:50 | PCM.HP.STD ---
Problem List (1) DKA (diabetic ketoacidoses) Status: Acute (2) Lactic acidosis Status: Acute (3) Depression Status: Chronic History of Present Illness Date of Admission: 03/08/18 Chief Complaint: DKA The patient is a 22 year old male w/ h/o DMI, DKA and noncompliant admitted for DKA. He woke-up this morning nausea. His nausea got worse and was constant. He had no relief despite taking his insulin. He was recently admitted for DKA. His nausea is severe and interfered with his ADLs. Nothing made his nausea better or worse. Nausea was not associated with any other symptoms. He went to the ED for his symptoms. He requested pain medication. He cannot describe his pain, saying that his shoulder hurt. When asked again, he said that his abdominal hurt. He was transferred to [place] for treatment of DKA. Past Medical History Past Medical History (Chronic Problems): Chronic Problems Depression (Chronic) Type 1 diabetes mellitus (Chronic) Allergies No Known Allergies Allergy (Verified 03/08/18 22:16) Home Medications: Ambulatory Orders Medication Instructions Recorded Insulin Aspart [Novolog Vial] 10 unit SQ TIDCM #1 vial 02/21/18 Insulin Glargine,Hum.rec.anlog 23 unit SQ BID #30 ml 02/21/18 [Lantus] [place], Insulin Disposable 1 ea MISCELL. UD #1 box 02/21/18 [Novofine Autocover 30G Needle] Duloxetine Hcl [Cymbalta] 30 mg PO DAILY 03/08/18 Surgical History: no surgical history Psychiatric History: No pertinent psych hx Smoking Status: Never smoker - *Family History Maternal History Items: No pertinent history Paternal History Items: No pertinent history Review of Systems Constitutional: Denies: Chills, Fever, Weight Change HEENT: Denies: Head Aches, Sinus Congestion, Sinus Drainage Cardiovascular: Denies: Chest Pain, Palpitations Respiratory: Denies: Cough, Shortness of breath at rest, Sputum production Gastrointestinal: Denies: Abdominal Pain, Nausea, Vomiting Genitourinary: Denies: Dysuria Musculoskeletal: Reports: Muscle pain. Denies: Joint Pain, Joint Tenderness Skin: Denies: Rash, Wounds Neurological: Denies: Numbness, Tingling, Focal weakness Psychiatric: Reports: Anxiety. Denies: Depression, Homicidal Ideations, Suicidal Ideations Hematologic/ Lymphatic: Denies: Easy Bruising, Easy Bleeding VTE Information - Inpt Only VTE Present on Admission: No VTE Pharm Prophylaxis ordered?: Yes - Physical Exam General: Alert, Oriented x3, Cooperative HEENT: Atraumatic, PERRLA, EOMI, Normocephalic Neck: Supple, No JVD, Negative Carotid Bruits Lungs: Clear to auscultation, Normal air movement Cardiovascular: Regular rate, No murmurs Abdomen: Bowel Sounds Present, Soft, Non Tender Extremities: No edema, Capillary Refill Less than 3 Seconds Skin: No rashes, No breakdown Musculoskeletal: No Tenderness to Palpation of Joints or Extremities Neurological: Cranial nerves II-XII grossly intact Psych/Mental Status: Normal Affect, Appropriate Vital Signs Temp Pulse Resp BP Pulse Ox 100.1 F H 140 H 13 113/64 95 03/08/18 21:34 03/08/18 22:30 03/08/18 22:30 03/08/18 22:30 03/08/18 22:30 Oxygen Delivery Method Room Air Weight: 58.9 kg Body Mass Index (BMI) 19.1 Finger Stick Blood Glucose 88 Intake and Output for Last 24 Hours 03/06/18 03/07/18 03/08/18 23:59 23:59 23:59 Output Total 600 / 600 Balance -600 / -600 Laboratory Tests Past 24 Hrs 03/08/18 22:00 MRSA (PCR) Pending POC Glucose 03/08/18 21:52 POC Glucose > 500 H* Assessment/Plan All Active Problems Lactic acidosis (Acute) DKA (diabetic ketoacidoses) (Acute) 22 year old male w/ h/o DMI, DKA and noncompliant admitted for DKA. 1) DKA: Most likely secondary to noncompliant w/ meds. Glucose 800, moderate ketones and bicarb 11 Trop negative. Will get utox. Will start DKA protocol. IVF hydration. BMP Q4H. IV insulin. 2) Leukocytosis: Probably reactive. Cultures done at [facility]. Supportive care for now. Will consider repeating cultures and antibiotic if no improvement. 3) Lactic acidosis: Probably secondary to hypoperfusion secondary to hypovolemia secondary to osmotic diuresis. Hydration. Repeat labs. 4) Hypovolemia hyponatremia with superimposed pseudohyponatremia: Hydration. Na 125 IV insulin. 5) Prophylaxis: SCD / heparin.
[2018-03-08] MEDS: 0.9% Normal Saline 1,000 ML 325 ML IV (23:14)
[2018-03-08] MEDS: 0.9% NaCl Peripheral Flush Adult/Peds IV ×2 (23:18→23:22)
[2018-03-08] MEDS: Ondansetron 4 MG/2 ML Vial IV (23:20)
[2018-03-08 23:30] LABS: Bedside Glucose 454 mg/dL (70-110)
[2018-03-08 23:37] LABS: Hematocrit 45.9 % (40-54); Hemoglobin 15.2 g/dl (13.0-16.5); International Normalized Ratio 1.1; Mean Corpuscular Volume 89.8 fL (80-94); Platelet Count 295 K/mm3 (150-450); Prothrombin Time (Protime)PT. 14.2 SECONDS (11.7-14.9); RBC Distribution Width CV 12.8 % (11.6-14.6); Red Blood Count 5.11 M/mm3 (4.6-6.2); White Blood Count 29.3 K/mm3 (4.4-11.0)
[2018-03-08 23:38] LABS: Mean Corp Hgb Conc 33.1 g/gl (32-36); Mean Corpuscular Hgb 29.8 pg (27.0-32.0); Partial Thromboplast Time 21.3 Seconds (24.1-36.2); Scan Indicated on CBC? Y/N NO
[2018-03-08 23:46] LABS: ALB/GLOB Ratio 1.2 RATIO (0.9-2.4); AST(SGOT) 19 U/L (15-37); Alanine Aminotransfer ALT/SGPT 23 U/L (16-61); Albumin, Serum 4.1 g/dL (3.2-5.0); Alkaline Phosphatase 150 U/L (45-117); Anion Gap 17 (5-15); BUN 19 mg/dL (7-18); BUN/Creat Ratio 12.8 RATIO (10-20); Calcium,Total 8.7 mg/dL (8.5-10.1); Chloride 103 mmol/L (98-107); Creatinine, Serum 1.48 mg/dL (0.70-1.30); EST Glomerular Filtration Rate 62 mL/min (>60); Est Glom Filt Rate - Afr Amer 76 mL/min (>60); Estimated Creatinine Clearance 64.67 ml/min; Globulin 3.5 g/dL (2.2-4.2); Glucose 384 mg/dL (74-106); Magnesium 2.3 mg/dL (1.6-2.6); Protein, Total 7.6 g/dL (6.4-8.2); Sodium Level 138 mmol/L (136-145)
[2018-03-08 23:53] LABS: AST(SGOT) 17 U/L (15-37); Alanine Aminotransfer ALT/SGPT 23 U/L (16-61); Albumin, Serum 4.1 g/dL (3.2-5.0); Alkaline Phosphatase 151 U/L (45-117); Bilirubin, Direct 0.13 mg/dL (0.00-0.30); Globulin 3.5 g/dL (2.2-4.2); Protein, Total 7.6 g/dL (6.4-8.2)
[2018-03-09] VITALS (29 sets, daily range): BP systolic 108–171; BP diastolic 32–97; PULSE 118–141; RESP 10–22; TEMP 36.3–38.5; O2SAT 92–100
[2018-03-09] MEDS: Acetaminophen 325 MG Tablet 650 MG PO ×2 (00:02→07:19)
[2018-03-09 00:11] LABS: Bedside Glucose 319 mg/dL (70-110)
[2018-03-09 00:18] LABS: Bacteria 0 SEEN /hpf (None Seen); Mucous, Urine 0 SEEN /hpf (<or=2+); Squamous Epithelial Cells - UA 0 SEEN /hpf (0-5); White Blood Cells 0 SEEN /hpf (0-5)
[2018-03-09 00:32] LABS: M R Staph aureus DNA By PCR Negative (Negative); Probe Check PASS; Specimen Processing Control PASS
[2018-03-09 00:42] LABS: Color, Urine Yellow (Yellow); Glucose, Dipstick 1000 mg/dl (Normal); Leukocyte Esterase-Dipstick Negative /ul (Negative); Nitrite-Dipstick Negative (Negative); Occult Blood-Urine 10 /ul (Negative); Protein-Dipstick 30 mg/dl (Negative); Urine Bilirubin Dipstick Negative (Negative); Urine Clarity Sl. Cloudy (Clear); Urine Urobilinogen Normal (Normal)
[2018-03-09 01:11] LABS: Bedside Glucose 300 mg/dL (70-110)
[2018-03-09 01:18] LABS: Ketone-Dipstick 150 mg/dl (Negative); Red Blood Cells-Urine 0-5 SEEN /hpf (0-5)
[2018-03-09 01:50] LABS: Amphetamine Urine VISTA NEGATIVE (<1000 ng/mL); Barbiturate Urine VISTA NEGATIVE (< 200 ng/mL); Benzodiazepine Urine VISTA NEGATIVE (< 200 ng/mL); Cocaine Urine VISTA NEGATIVE (< 300 ng/mL); Ecstacy Urine VISTA NEGATIVE (< 500 ng/mL); Methadone Urine VISTA NEGATIVE (< 300 ng/mL); PCP Urine VISTA NEGATIVE (< 25 ng/mL); THC Urine VISTA NEGATIVE (< 50 ng/mL); Vista UDS pH Range 6
[2018-03-09 02:01] LABS: Bedside Glucose 213 mg/dL (70-110)
[2018-03-09] MEDS: Dext 5%-0.45% NS 1,000 ML 150 ML IV (02:09)
[2018-03-09] MEDS: Metoclopramide 10 MG/2 ML Vial IV ×2 (02:09→10:10)
[2018-03-09] MEDS: 0.9% NaCl Peripheral Flush Adult/Peds IV ×10 (02:09→23:33)
[2018-03-09 02:20] LABS: Hemoglobin A1c 8.6 % (4.2-6.3)
[2018-03-09 02:56] LABS: Bedside Glucose 242 mg/dL (70-110)
[2018-03-09 03:21] LABS: Lactic Acid 1.8 mmol/L (0.4-2.0)
[2018-03-09 03:42] LABS: Anion Gap 18 (5-15); BUN 19 mg/dL (7-18); BUN/Creat Ratio 15.1 RATIO (10-20); Calcium,Total 8.5 mg/dL (8.5-10.1); Chloride 108 mmol/L (98-107); Creatinine, Serum 1.26 mg/dL (0.70-1.30); EST Glomerular Filtration Rate 75 mL/min (>60); Est Glom Filt Rate - Afr Amer 91 mL/min (>60); Estimated Creatinine Clearance 75.96 ml/min; Glucose 235 mg/dL (74-106); Potassium 3.9 mmol/L (3.5-5.1); Sodium Level 145 mmol/L (136-145)
[2018-03-09 04:01] LABS: Bedside Glucose 255 mg/dL (70-110)
[2018-03-09] MEDS: 0.9% Normal Saline 1,000 ML 325 ML IV (04:07)
[2018-03-09] MEDS: Ondansetron 4 MG/2 ML Vial IV ×3 (05:08→20:56)
[2018-03-09 05:21] LABS: Bedside Glucose 249 mg/dL (70-110)
[2018-03-09 05:55] LABS: Absolute Lymphocyte Count 1.14 X10^3/ul (0.83-4.51); Absolute Neutrophil Count 23.1 X10^3/uL (2.0-7.7); Basophil# 0.02 X10^3/uL; Basophil% 0.1 % (0-1); Hematocrit 44.3 % (40-54); Lymphocyte # 1.14 X10^3/ul (4.0); Lymphocyte % 4.5 % (19-41); Mean Corp Hgb Conc 36.1 g/gl (32-36); Mean Corpuscular Hgb 32.8 pg (27.0-32.0); Mean Corpuscular Volume 90.8 fL (80-94); Mean Platelet Vol. 9.9 fl (6.2-12.0); Monocyte# 0.77 X10^3/uL; Monocyte% 3.1 % (0-10); Neutrophil # 23.14 X10^3/uL (2.7-7.7); Neutrophil % 92.1 % (47-70); Platelet Count 298 K/mm3 (150-450); RBC Distribution Width CV 13.2 % (11.6-14.6); RBC Distribution Width SD 43.1 fl (35.1-43.9); Red Blood Count 4.88 M/mm3 (4.6-6.2); White Blood Count 25.1 K/mm3 (4.4-11.0)
[2018-03-09 06:07] LABS: Osmolality, Serum 318 mOsm/KG (275-295)
[2018-03-09 06:11] LABS: Bedside Glucose 190 mg/dL (70-110)
[2018-03-09 06:24] LABS: Differential Indicated SCAN CRITERIA MET; POSITIVE COUNT NO; POSITIVE DIFFERENTIAL YES; POSITIVE MORPHOLOGY NO
[2018-03-09] MEDS: Heparin Injection (Vial) 5,000 UNIT/ML VIAL 5000 UNIT SC ×3 (06:51→21:02)
[2018-03-09 07:06] LABS: Bedside Glucose 170 mg/dL (70-110)
[2018-03-09 07:16] LABS: BUN 16 mg/dL (7-18); Creatinine, Serum 0.92 mg/dL (0.70-1.30); EST Glomerular Filtration Rate 108 mL/min (>60); Estimated Creatinine Clearance 104.04 ml/min; Glucose 167 mg/dL (74-106)
[2018-03-09 07:17] LABS: Anion Gap 14 (5-15); BUN/Creat Ratio 17.4 RATIO (10-20); Calcium,Total 7.6 mg/dL (8.5-10.1); Chloride 113 mmol/L (98-107); Est Glom Filt Rate - Afr Amer 131 mL/min (>60); Potassium 3.4 mmol/L (3.5-5.1); Sodium Level 146 mmol/L (136-145)
[2018-03-09 08:11] LABS: Bedside Glucose 215 mg/dL (70-110)
--- NOTE | 2018-03-09 08:32 | PCM.PN.HOSP ---
Subjective: 22 y/o with type 1 DM admitted on 03/08/18 pm with nausea, abdominal pain and found to be in DKA. He was admitted to ICU, managed on insulin drip, anion gap is closed this morning. He complains of severe nausea and upper abdominal pain. Denies dizziness or palpitations. He feels depressed and hopeless. He says he intends to kill himself by not taking his medications. He has been a diabetic since age 15. He denies a plan to kill himself with a gun or knife. He is not taking his antidepressants. This is his 4th admission in this hospital in less than 2 months. He has had other admissions to other hospitals recently. Vitals/I&O's: Vital Signs Temp Pulse Resp BP Pulse Ox 98.6 F 126 H 10 L 129/50 H 97 03/09/18 07:00 03/09/18 08:00 03/09/18 08:00 03/09/18 08:00 03/09/18 08:00 Oxygen Delivery Method Room Air Weight: 58.9 kg Body Mass Index (BMI) 19.1 Finger Stick Blood Glucose 190 Intake and Output for Last 24 Hours 03/07/18 03/08/18 03/09/18 23:59 23:59 23:59 Intake Total 286.2 / 286.2 1399 / 1399 Output Total 750 / 750 1000 / 1000 Balance -463.8 / -463.8 399 / 399 General: Alert, Oriented x3, Cooperative, - - appears unwell, looks depressed HEENT: Atraumatic, PERRLA, EOMI, Normocephalic Oral: Dry Mucosa Neck: Supple, No JVD, Negative Carotid Bruits Lungs: Clear to auscultation, Normal air movement Cardiovascular: Regular rate, Regular Rhythm, Normal S1, Normal S2, No murmurs Abdomen: Bowel Sounds Present, Soft, Tender - epigastric Extremities: No edema Skin: No rashes, No breakdown Musculoskeletal: No Tenderness to Palpation of Joints or Extremities Lymphatic: No Cervical, Supraclavicular, or Inguinal Adenopathy Neurological: Cranial nerves II-XII grossly intact, Neuro grossly intact Psych/Mental Status: Appropriate, Flat Affect Laboratory Results 03/08/18 21:52: POC Glucose > 500 H* 03/08/18 22:00: MRSA (PCR) Negative 03/08/18 23:01: POC Glucose 454 H* 03/08/18 23:05: Total Bilirubin 0.90, Direct Bilirubin 0.13, AST 17, ALT 23, Alkaline Phosphatase 151 H, Total Protein 7.6, Albumin 4.1, Globulin 3.5 03/08/18 23:05: Hemoglobin A1c 8.6 H 03/08/18 23:05: WBC 29.3 H, RBC 5.11, Hgb 15.2, Hct 45.9, MCV 89.8, MCH 29.8, MCHC 33.1, RDW 12.8, RDW Differential 42.0, Plt Count 295, MPV 10.0 03/08/18 23:05: PT 14.2, INR 1.1, APTT 21.3 L 03/08/18 23:05: Sodium 138, Potassium 4.0, Chloride 103, Carbon Dioxide 18.0 L, Anion Gap 17 H, BUN 19 H, Creatinine 1.48 H, Estim Creat Clear Calc 64.67, Est GFR (MDRD) Af Amer 76, Est GFR (MDRD) Non-Af 62, BUN/Creatinine Ratio 12.8, Glucose 384 H, Calcium 8.7, Magnesium 2.3, Total Bilirubin 0.90, AST 19, ALT 23, Alkaline Phosphatase 150 H, Troponin I < 0.015, Total Protein 7.6, Albumin 4.1, Globulin 3.5, Albumin/Globulin Ratio 1.2 03/08/18 23:05: Lactic Acid 3.0 H 03/08/18 23:05: Serum Osmolality 318 H 03/08/18 23:59: POC Glucose 319 H 03/09/18 00:10: Urine Opiates Screen NEGATIVE, Urine Methadone Screen NEGATIVE, Ur Barbiturates Screen NEGATIVE, Ur Phencyclidine Scrn NEGATIVE, Ur Amphetamines Screen NEGATIVE, U Methamphetamin-MDMA NEGATIVE, U Benzodiazepines Scrn NEGATIVE, Urine Cocaine Screen NEGATIVE, U Cannabinoids Screen NEGATIVE, Ur Drug Screen Comment 03/09/18 00:10: Urine Color Yellow, Urine Clarity Sl. Cloudy, Urine pH 5.0, Ur Specific [place] 1.020, Urine Protein 30 H, Urine Glucose (UA) 1000 H, Urine Ketones 150 H, Urine Occult Blood 10 H, Urine Nitrite Negative, Urine Bilirubin Negative, Urine Urobilinogen Normal, Ur Leukocyte Esterase Negative, Urine RBC 0-5 SEEN, Urine WBC 0 SEEN, Ur Squamous Epith Cells 0 SEEN, Urine Bacteria 0 SEEN, Urine Mucus 0 SEEN 03/09/18 01:02: POC Glucose 300 H 03/09/18 01:53: POC Glucose 213 H 03/09/18 02:50: Sodium 145, Potassium 3.9, Chloride 108 H, Carbon Dioxide 19.0 L, Anion Gap 18 H, BUN 19 H, Creatinine 1.26, Estim Creat Clear Calc 75.96, Est GFR (MDRD) Af Amer 91, Est GFR (MDRD) Non-Af 75, BUN/Creatinine Ratio 15.1, Glucose 235 H, Calcium 8.5, Troponin I < 0.015 03/09/18 02:50: Lactic Acid 1.8 03/09/18 02:52: POC Glucose 242 H 03/09/18 03:55: POC Glucose 255 H 03/09/18 04:56: POC Glucose 249 H 03/09/18 05:10: WBC 25.1 H, RBC 4.88, Hgb 16.0, Hct 44.3, MCV 90.8, MCH 32.8 H, MCHC 36.1 H, RDW 13.2, RDW Differential 43.1, Plt Count 298, MPV 9.9, Immature Gran % (Auto) 0.200, Neut % (Auto) 92.1 H, Lymph % (Auto) 4.5 L, Ray % (Auto) 3.1, Eos % (Auto) 0.0, Baso % (Auto) 0.1, Absolute Neuts (auto) 23.1 H, Absolute Lymphs (auto) 1.14, Total Counted Not Reportable, Differential Comment 03/09/18 05:10: Troponin I < 0.015 03/09/18 06:04: POC Glucose 190 H 03/09/18 06:54: POC Glucose 170 H 03/09/18 06:55: Sodium 146 H, Potassium 3.4 L, Chloride 113 H, Carbon Dioxide 19.0 L, Anion Gap 14, BUN 16, Creatinine 0.92, Estim Creat Clear Calc 104.04, Est GFR (MDRD) Af Amer 131, Est GFR (MDRD) Non-Af 108, BUN/Creatinine Ratio 17.4, Glucose 167 H, Calcium 7.6 L 03/09/18 08:04: POC Glucose 215 H Current Medications Acetaminophen (Tylenol) 650 mg PO Q4H PRN PRN PRN Reason: PAIN Last Admin: 03/09/18 07:19 Dose: 650 mg Dextrose (D50w Syringe) 0 gm IV X1 PRN; Protocol PRN Reason: AGITATION Dextrose (D50w Syringe) 0 gm IV X1 PRN; Protocol PRN Reason: Hypoglycemia Duloxetine HCl (Cymbalta) 30 mg PO DAILY [facility] Stop: 03/15/18 10:01 Duloxetine HCl (Cymbalta) 60 mg PO DAILY [facility] Glucagon () 1 mg IM .X1 PRN PRN Reason: Hypoglycemia Heparin Sodium (Porcine) (Heparin Na) 5,000 unit SC Q8 [facility] Last Admin: 03/09/18 06:51 Dose: 5,000 units Sodium Chloride () 250 mls @ 15 mls/hr IV .[id number] PRN PRN Reason: SALINE FLUSH Insulin Aspart 100 unit/ (Sodium Chloride) 100 mls @ 5.89 mls/hr IV .[id number] [facility]; 0.1 UNITS/KG/HR PRN Reason: Protocol Last Admin: 03/08/18 23:15 Dose: 5.89 mls/hr Potassium Chloride 40 meq/ (Dextrose/Sodium Chloride) 1,000 mls @ 150 mls/hr IV .[id number] [facility] Insulin Human Lispro (Humalog Kwikpen (Bkc)) 0 unit SQ ACHS [facility] PRN Reason: Protocol Metoclopramide HCl (Reglan) 10 mg IV Q4H PRN PRN PRN Reason: NAUSEA Last Admin: 03/09/18 02:09 Dose: 10 mg Non-Formulary Medication (Insulin Glargine,Hum.Rec.Anlog) 23 unit SQ BID [facility] Ondansetron HCl (Zofran) 4 mg IV Q6H PRN PRN PRN Reason: BREAKTHROUGH NAUSEA Last Admin: 03/09/18 05:08 Dose: 4 mg Potassium Chloride (K-Dur) 60 meq PO X1 ONE Stop: 03/09/18 08:26 Sodium Chloride () 5 - 30 ml IV UD PRN PRN Reason: SALINE FLUSH Last Admin: 03/09/18 06:58 Dose: 10 ml Medical Necessity - Tobacco Use Smoking Status: Never smoker Assessment/Plan All Active Problems Lactic acidosis (Acute) DKA (diabetic ketoacidoses) (Acute) 22 y/o with PMHx of type I DM, on insulin, history of noncompliance with medications, depression, this is his fourth admission to this hospital in less than 2 months who comes in with another episode of DKA 1. Acute DKA in a type I diabetic secondary to noncompliance, patient has underlying depression, managed in the ICU on insulin drip, anion gap is closed, Hgb A1c is 8.6, Will continue on home insulin regimen, Accu-Cheks with insulin sliding scale, he would need to have some regimen for pre-meal insulin as well in the coming days. clinical document improvement educator to reassess. 2. Suicidal ideation/noncompliance in the patient with major depression, on Cymbalta, patient would need to be evaluated said for inpatient psych facility, will contact mobile crisis 3. Leukocytosis, likely reactive, improving, down to 25.1 from 29.3, will continue to monitor 4. Hypernatremia due to dehydration, improved, switched to D5 half-normal saline, continue to monitor BMP 5. Hypokalemia, resolved, recheck BMP in am 6. Nausea and vomiting secondary to likely diabetic gastroparesis, on metoclopramide as well as Zofran, will continue IV fluids, continue to monitor 7. DVT prophylaxis -with early ambulation; chemoprophylaxis not indicated Code Visit Inpatient E&M: 30806 Init Hosp L3
[2018-03-09 08:58] LABS: AST(SGOT) 15 U/L (15-37); Alanine Aminotransfer ALT/SGPT 18 U/L (16-61); Albumin, Serum 3.4 g/dL (3.2-5.0); Alkaline Phosphatase 110 U/L (45-117); Bilirubin, Direct 0.14 mg/dL (0.00-0.30); Globulin 2.7 g/dL (2.2-4.2); Protein, Total 6.1 g/dL (6.4-8.2)
[2018-03-09 09:11] LABS: Bedside Glucose 188 mg/dL (70-110)
[2018-03-09] MEDS: Morphine 2 MG/ML Syringe 1 MG IV ×3 (10:11→20:55)
[2018-03-09 10:21] LABS: Bedside Glucose 163 mg/dL (70-110)
[2018-03-09 11:26] LABS: Bedside Glucose 133 mg/dL (70-110)
[2018-03-09 11:27] LABS: Anion Gap 11 (5-15); BUN 16 mg/dL (7-18); BUN/Creat Ratio 17.6 RATIO (10-20); Calcium,Total 8.2 mg/dL (8.5-10.1); Chloride 111 mmol/L (98-107); Creatinine, Serum 0.91 mg/dL (0.70-1.30); EST Glomerular Filtration Rate 110 mL/min (>60); Est Glom Filt Rate - Afr Amer 133 mL/min (>60); Estimated Creatinine Clearance 105.18 ml/min; Glucose 133 mg/dL (74-106); Potassium 3.6 mmol/L (3.5-5.1); Sodium Level 143 mmol/L (136-145)
[2018-03-09 12:16] LABS: Bedside Glucose 158 mg/dL (70-110)
[2018-03-09 15:56] LABS: Bedside Glucose 355 mg/dL (70-110)
--- NOTE | 2018-03-09 16:10 | NURSING ---
Questioned pt concerning mental health and possible substance abuse. Pt denies current SI. Relates that he just stops taking medications as ordered when he feels depressed. Denies any attempts recently. Denies following with a counselor. Pt also adamantly denies substance/alcohol abuse. Pt continues with N/V. Pt made NPO and Dr. Echeverria to be contacted for new orders. Will continue to monitor.
[2018-03-09] MEDS: 0.45% Normal Saline 1,000 ML 125 ML IV (16:50)
[2018-03-09] MEDS: Insulin Lispro 100 UNIT/ML INSULN.PEN SQ ×2 (17:10→21:02)
[2018-03-09] MEDS: proMETHazine 25 MG/ML Syringe 12.5 MG IV ×2 (17:11→23:33)
[2018-03-09 17:20] LABS: Bedside Glucose 318 mg/dL (70-110)
[2018-03-09 21:16] LABS: Bedside Glucose 333 mg/dL (70-110)
[2018-03-10] VITALS (16 sets, daily range): BP systolic 110–160; BP diastolic 40–88; PULSE 95–121; RESP 11–18; TEMP 36.8–37.9; O2SAT 94–99
[2018-03-10] MEDS: 0.45% Normal Saline 1,000 ML 125 ML IV (00:59)
[2018-03-10] MEDS: 0.9% NaCl Peripheral Flush Adult/Peds IV ×2 (05:22→07:54)
[2018-03-10] MEDS: Heparin Injection (Vial) 5,000 UNIT/ML VIAL 5000 UNIT SC ×3 (05:22→21:10)
[2018-03-10] MEDS: Metoclopramide 10 MG/2 ML Vial IV (05:23)
[2018-03-10 06:08] LABS: BUN 9 mg/dL (7-18); Creatinine, Serum 0.94 mg/dL (0.70-1.30); Glucose 211 mg/dL (74-106)
[2018-03-10 06:09] LABS: Anion Gap 12 (5-15); BUN/Creat Ratio 9.6 RATIO (10-20); Calcium,Total 8.2 mg/dL (8.5-10.1); Chloride 107 mmol/L (98-107); EST Glomerular Filtration Rate 105 mL/min (>60); Est Glom Filt Rate - Afr Amer 127 mL/min (>60); Estimated Creatinine Clearance 105.11 ml/min; Potassium 3.8 mmol/L (3.5-5.1); Sodium Level 142 mmol/L (136-145)
--- NOTE | 2018-03-10 06:46 | PCM.PN.HOSP ---
Subjective: Patient with no acute events overnight per self and per nursing report. He does state that nausea has been improving and has less tachycardia with activity. Patient's anion gap closure since day prior with transition to subcu regimen without issue. Clinically patient improved thus pending crisis evaluation this morning for placement to which patient is amenable and does continue to admit to suicidal ideations. Patient denies fevers, chills, emesis, abdominal pain, chest pain or dyspnea. Objective: Physical Examination: General: awake, alert, oriented x 3 and cooperative, seated upright in the ICU bed in no apparent distress. Skin: normal color, turgor, no icterus, cyanosis. HEENT: AT/NC, EOMI, PERRLA, improved MM. Lungs: CTA bilaterally, moderate effort, mild decrease BL bases, no rales, ronchi or wheezing. Heart: Mildly tachycardic with regular rhythm; no gallop, rub audible. Abdomen: soft, thin habitus, NTTP, ND, mildly hyperactive BS. Extremities: no cyanosis, clubbing, or edema. Neurological: patient awake, alert, oriented x 3; cognitive function intact; pupils equally reactive to light and accomodation; cranial nerves II-XII grossly normal, moving all 4 extremities, no focal deficits, strength moderately globally decreased secondary to acute presentation. Psychiatric: affect appears flat, admits to ongoing depression with suicidal ideation. Vitals/I&O's: Vital Signs Temp Pulse Resp BP Pulse Ox 99.3 F H 111 H 15 127/53 H 95 03/10/18 05:00 03/10/18 06:00 03/10/18 06:00 03/10/18 06:00 03/10/18 06:00 Oxygen Delivery Method Room Air Weight: 134 lb 0.657 oz Body Mass Index (BMI) 19.1 Finger Stick Blood Glucose 190 Intake and Output for Last 24 Hours 03/08/18 03/09/18 03/10/18 23:59 23:59 23:59 Intake Total 286.2 / 286.2 4686 / 4686 763 / 763 Output Total 750 / 750 3750 / 3750 Balance -463.8 / -463.8 936 / 936 763 / 763 Laboratory Results 03/09/18 05:15: Total Bilirubin 0.60, Direct Bilirubin 0.14, AST 15, ALT 18, Alkaline Phosphatase 110, Total Protein 6.1 L, Albumin 3.4, Globulin 2.7 03/09/18 06:54: POC Glucose 170 H 03/09/18 06:55: Sodium 146 H, Potassium 3.4 L, Chloride 113 H, Carbon Dioxide 19.0 L, Anion Gap 14, BUN 16, Creatinine 0.92, Estim Creat Clear Calc 104.04, Est GFR (MDRD) Af Amer 131, Est GFR (MDRD) Non-Af 108, BUN/Creatinine Ratio 17.4, Glucose 167 H, Calcium 7.6 L 03/09/18 08:04: POC Glucose 215 H 03/09/18 09:04: POC Glucose 188 H 03/09/18 10:08: POC Glucose 163 H 03/09/18 11:03: POC Glucose 133 H 03/09/18 11:07: Sodium 143, Potassium 3.6, Chloride 111 H, Carbon Dioxide 21.0, Anion Gap 11, BUN 16, Creatinine 0.91, Estim Creat Clear Calc 105.18, Est GFR (MDRD) Af Amer 133, Est GFR (MDRD) Non-Af 110, BUN/Creatinine Ratio 17.6, Glucose 133 H, Calcium 8.2 L 03/09/18 12:09: POC Glucose 158 H 03/09/18 15:51: POC Glucose 355 H 03/09/18 17:09: POC Glucose 318 H 03/09/18 21:01: POC Glucose 333 H 03/10/18 05:20: WBC Pending, RBC Pending, Hgb Pending, Hct Pending, MCV Pending, MCH Pending, MCHC Pending, RDW Pending, RDW Differential Pending, Plt Count Pending, Neut % (Auto) Pending, Absolute Neuts (auto) Pending, Total Counted Pending 03/10/18 05:20: Sodium 142, Potassium 3.8, Chloride 107, Carbon Dioxide 23.0, Anion Gap 12, BUN 9, Creatinine 0.94, Estim Creat Clear Calc 105.11, Est GFR (MDRD) Af Amer 127, Est GFR (MDRD) Non-Af 105, BUN/Creatinine Ratio 9.6 L, Glucose 211 H, Calcium 8.2 L Current Medications Acetaminophen (Tylenol) 650 mg PO Q4H PRN PRN PRN Reason: PAIN Last Admin: 03/09/18 07:19 Dose: 650 mg Duloxetine HCl (Cymbalta) 30 mg PO DAILY [facility] Stop: 03/15/18 10:01 Last Admin: 03/09/18 11:19 Dose: Not Given Duloxetine HCl (Cymbalta) 60 mg PO DAILY [facility] Glucagon () 1 mg IM .X1 PRN PRN Reason: Hypoglycemia Heparin Sodium (Porcine) (Heparin Na) 5,000 unit SC Q8 [facility] Last Admin: 03/10/18 05:22 Dose: 5,000 units Sodium Chloride () 250 mls @ 15 mls/hr IV .[id number] PRN PRN Reason: SALINE FLUSH Pantoprazole Sodium 40 mg/ (Sodium Chloride) 110 mls @ 330 mls/hr IV Q12 [facility] Last Admin: 03/09/18 21:17 Dose: 330 mls/hr Sodium Chloride () 1,000 mls @ 125 mls/hr IV .Q8H [facility] Last Admin: 03/10/18 00:59 Dose: 125 mls/hr Insulin Glargine (Lantus (Bkc)) 23 units SC BID [facility] Last Admin: 03/09/18 21:02 Dose: 23 units Insulin Human Lispro (Humalog Kwikpen (Bkc)) 0 unit SQ ACHS [facility] PRN Reason: Protocol Last Admin: 03/09/18 21:02 Dose: 4 units Metoclopramide HCl (Reglan) 10 mg IV Q4H PRN PRN PRN Reason: NAUSEA Last Admin: 03/10/18 05:23 Dose: 10 mg Morphine Sulfate () 1 mg IV Q4H PRN PRN PRN Reason: SEVERE PAIN (6-10/10) Last Admin: 03/09/18 20:55 Dose: 1 mg Ondansetron HCl (Zofran) 4 mg IV Q6H PRN PRN PRN Reason: BREAKTHROUGH NAUSEA Last Admin: 03/09/18 20:56 Dose: 4 mg Promethazine HCl (Phenergan) 12.5 mg IV Q4H PRN PRN PRN Reason: NAUSEA/VOMITING Last Admin: 03/09/18 23:33 Dose: 12.5 mg Sodium Chloride () 5 - 30 ml IV UD PRN PRN Reason: SALINE FLUSH Last Admin: 03/10/18 05:22 Dose: 10 ml Medical Necessity - Tobacco Use Smoking Status: Never smoker Assessment/Plan All Active Problems Lactic acidosis (Acute) DKA (diabetic ketoacidoses) (Acute) The patient is a 22 y/o M w/ PMHx: Anxiety and Depression, Diabetes mellitus type I who presents to the [facility] ED on 03/08/18 with history of onset abdominal pain, nausea and emesis x 24 hours w/ concurrent suicidal ideation. (1) DKA w/ Diabetes mellitus type I: Admitted to ICU, maintained on IVFs, insulin drip w/ serial chemistry with gap closure w/ transition to SC regimen, nutrition consulted. Encouraged diet and insulin regimen compliance. (2) Anxiety and Depression with Suicidal Ideations: Notes severe depression and SI, intention to incorrectly take/administer his medication, several hospitalizations. Crisis consulted, pending given medical stabilization and correction of DKA. Continue on home Cymbalta. Suicide precautions. (3) GERD: Protonix. (4) DVT Prophylaxis: SCDs, heparin. Code Visit Inpatient E&M: 91047 Subs Hosp L2
[2018-03-10 06:54] LABS: Absolute Lymphocyte Count 2.61 X10^3/ul (0.83-4.51); Absolute Neutrophil Count 12.3 X10^3/uL (2.0-7.7); Basophil# 0.02 X10^3/uL; Basophil% 0.1 % (0-1); Eosinophil# 0.01 X10^3/uL; Eosinophils% 0.1 % (0-5); Hemoglobin 14.3 g/dl (13.0-16.5); Lymphocyte # 2.61 X10^3/ul (4.0); Mean Corp Hgb Conc 36.7 g/gl (32-36); Mean Corpuscular Hgb 33.3 pg (27.0-32.0); Mean Corpuscular Volume 90.7 fL (80-94); Mean Platelet Vol. 9.4 fl (6.2-12.0); Monocyte# 1.26 X10^3/uL; Monocyte% 7.7 % (0-10); Neutrophil # 12.33 X10^3/uL (2.7-7.7); Neutrophil % 75.8 % (47-70); Platelet Count 259 K/mm3 (150-450); RBC Distribution Width CV 13.1 % (11.6-14.6); White Blood Count 16.3 K/mm3 (4.4-11.0)
--- NOTE | 2018-03-10 06:54 | PN_ITS ---
Subjective: Patient with no acute events overnight per self and per nursing report. He does state that nausea has been improving and has less tachycardia with activity. Patient's anion gap closure since day prior with transition to subcu regimen without issue. Clinically patient improved thus pending crisis evaluation this morning for placement to which patient is amenable and does continue to admit to suicidal ideations. Patient denies fevers, chills, emesis, abdominal pain, chest pain or dyspnea. Objective: Physical Examination: General: awake, alert, oriented x 3 and cooperative, seated upright in the ICU bed in no apparent distress. Skin: normal color, turgor, no icterus, cyanosis. HEENT: AT/NC, EOMI, PERRLA, improved MM. Lungs: CTA bilaterally, moderate effort, mild decrease BL bases, no rales, ronchi or wheezing. Heart: Mildly tachycardic with regular rhythm; no gallop, rub audible. Abdomen: soft, thin habitus, NTTP, ND, mildly hyperactive BS. Extremities: no cyanosis, clubbing, or edema. Neurological: patient awake, alert, oriented x 3; cognitive function intact; pupils equally reactive to light and accomodation; cranial nerves II-XII grossly normal, moving all 4 extremities, no focal deficits, strength moderately globally decreased secondary to acute presentation. Psychiatric: affect appears flat, admits to ongoing depression with suicidal ideation. Vitals/I&O's: Vital Signs Temp Pulse Resp BP Pulse Ox 99.3 F H 111 H 15 127/53 H 95 03/10/18 05:00 03/10/18 06:00 03/10/18 06:00 03/10/18 06:00 03/10/18 06:00 Oxygen Delivery Method Room Air Weight: 134 lb 0.657 oz Body Mass Index (BMI) 19.1 Finger Stick Blood Glucose 190 Intake and Output for Last 24 Hours 03/08/18 03/09/18 03/10/18 23:59 23:59 23:59 Intake Total 286.2 / 286.2 4686 / 4686 763 / 763 Output Total 750 / 750 3750 / 3750 Balance -463.8 / -463.8 936 / 936 763 / 763 Laboratory Results 03/09/18 05:15: Total Bilirubin 0.60, Direct Bilirubin 0.14, AST 15, ALT 18, Alkaline Phosphatase 110, Total Protein 6.1 L, Albumin 3.4, Globulin 2.7 03/09/18 06:54: POC Glucose 170 H 03/09/18 06:55: Sodium 146 H, Potassium 3.4 L, Chloride 113 H, Carbon Dioxide 19.0 L, Anion Gap 14, BUN 16, Creatinine 0.92, Estim Creat Clear Calc 104.04, Est GFR (MDRD) Af Amer 131, Est GFR (MDRD) Non-Af 108, BUN/Creatinine Ratio 17.4 , Glucose 167 H, Calcium 7.6 L 03/09/18 08:04: POC Glucose 215 H 03/09/18 09:04: POC Glucose 188 H 03/09/18 10:08: POC Glucose 163 H 03/09/18 11:03: POC Glucose 133 H 03/09/18 11:07: Sodium 143, Potassium 3.6, Chloride 111 H, Carbon Dioxide 21.0, Anion Gap 11, BUN 16, Creatinine 0.91, Estim Creat Clear Calc 105.18, Est GFR ( MDRD) Af Amer 133, Est GFR (MDRD) Non-Af 110, BUN/Creatinine Ratio 17.6, Glucose 133 H, Calcium 8.2 L 03/09/18 12:09: POC Glucose 158 H 03/09/18 15:51: POC Glucose 355 H 03/09/18 17:09: POC Glucose 318 H 03/09/18 21:01: POC Glucose 333 H 03/10/18 05:20: WBC Pending, RBC Pending, Hgb Pending, Hct Pending, MCV Pending , MCH Pending, MCHC Pending, RDW Pending, RDW Differential Pending, Plt Count Pending, Neut % (Auto) Pending, Absolute Neuts (auto) Pending, Total Counted Pending 03/10/18 05:20: Sodium 142, Potassium 3.8, Chloride 107, Carbon Dioxide 23.0, Anion Gap 12, BUN 9, Creatinine 0.94, Estim Creat Clear Calc 105.11, Est GFR ( MDRD) Af Amer 127, Est GFR (MDRD) Non-Af 105, BUN/Creatinine Ratio 9.6 L, Glucose 211 H, Calcium 8.2 L Current Medications Acetaminophen (Tylenol) 650 mg PO Q4H PRN PRN PRN Reason: PAIN Last Admin: 03/09/18 07:19 Dose: 650 mg Duloxetine HCl (Cymbalta) 30 mg PO DAILY [facility] Stop: 03/15/18 10:01 Last Admin: 03/09/18 11:19 Dose: Not Given Duloxetine HCl (Cymbalta) 60 mg PO DAILY [facility] Glucagon () 1 mg IM .X1 PRN PRN Reason: Hypoglycemia Heparin Sodium (Porcine) (Heparin Na) 5,000 unit SC Q8 [facility] Last Admin: 03/10/18 05:22 Dose: 5,000 units Sodium Chloride () 250 mls @ 15 mls/hr IV .[id number] PRN PRN Reason: SALINE FLUSH Pantoprazole Sodium 40 mg/ (Sodium Chloride) 110 mls @ 330 mls/hr IV Q12 [facility] Last Admin: 03/09/18 21:17 Dose: 330 mls/hr Sodium Chloride () 1,000 mls @ 125 mls/hr IV .Q8H [facility] Last Admin: 03/10/18 00:59 Dose: 125 mls/hr Insulin Glargine (Lantus (Bkc)) 23 units SC BID [facility] Last Admin: 03/09/18 21:02 Dose: 23 units Insulin Human Lispro (Humalog Kwikpen (Bkc)) 0 unit SQ ACHS [facility] PRN Reason: Protocol Last Admin: 03/09/18 21:02 Dose: 4 units Metoclopramide HCl (Reglan) 10 mg IV Q4H PRN PRN PRN Reason: NAUSEA Last Admin: 03/10/18 05:23 Dose: 10 mg Morphine Sulfate () 1 mg IV Q4H PRN PRN PRN Reason: SEVERE PAIN (6-10/10) Last Admin: 03/09/18 20:55 Dose: 1 mg Ondansetron HCl (Zofran) 4 mg IV Q6H PRN PRN PRN Reason: BREAKTHROUGH NAUSEA Last Admin: 03/09/18 20:56 Dose: 4 mg Promethazine HCl (Phenergan) 12.5 mg IV Q4H PRN PRN PRN Reason: NAUSEA/VOMITING Last Admin: 03/09/18 23:33 Dose: 12.5 mg Sodium Chloride () 5 - 30 ml IV UD PRN PRN Reason: SALINE FLUSH Last Admin: 03/10/18 05:22 Dose: 10 ml Medical Necessity - Tobacco Use Smoking Status: Never smoker Assessment/Plan All Active Problems Lactic acidosis (Acute) DKA (diabetic ketoacidoses) (Acute) The patient is a 22 y/o M w/ PMHx: Anxiety and Depression, Diabetes mellitus type I who presents to the [facility] ED on 03/08/18 with history of onset abdominal pain, nausea and emesis x 24 hours w/ concurrent suicidal ideation. (1) DKA w/ Diabetes mellitus type I: Admitted to ICU, maintained on IVFs, insulin drip w/ serial chemistry with gap closure w/ transition to SC regimen, nutrition consulted. Encouraged diet and insulin regimen compliance. (2) Anxiety and Depression with Suicidal Ideations: Notes severe depression and SI, intention to incorrectly take/administer his medication, several hospitalizations. Crisis consulted, pending given medical stabilization and correction of DKA. Continue on home Cymbalta. Suicide precautions. (3) GERD: Protonix. (4) DVT Prophylaxis: SCDs, heparin. Code Visit Inpatient E&M: 85478 Subs Hosp L2
[2018-03-10 06:59] LABS: POSITIVE COUNT NO; POSITIVE DIFFERENTIAL NO; POSITIVE MORPHOLOGY NO
--- NOTE | 2018-03-10 07:39 | PCM.DC.SUM ---
Discharge Date and Diagnosis Date of Admission: 03/08/18 Date of Discharge: 03/10/18 - Primary Discharge Diagnosis DKA with Diabetes mellitus type I Intractable abdominal pain, nausea, emesis secondary to DKA Suicidal Ideations w/ Anxiety and Depression - Secondary Discharge Diagnosis Chronic Problems Depression (Chronic) Type 1 diabetes mellitus (Chronic) Hospital Course and Treatment Crisis consultation Re: Suicidal ideations, placement Operations: None Procedures: EKG Summary of Care Provided: The patient is a 22 y/o M w/ PMHx: Anxiety and Depression, Diabetes mellitus type I who presents to the [facility] ED on 03/08/18 with history of onset abdominal pain, nausea and emesis x 24 hours w/ concurrent suicidal ideation. Admitted to ICU secondary to ED noted DKA, maintained on aggressive IVFs, insulin drip w/ serial chemistry with gap closure w/ transition to SC regimen, nutrition consulted. Encouraged diet and insulin regimen compliance. Maintained on PPI and reglan. Noted severe depression and SI w/ intention to incorrectly take/administer his medication, several hospitalizations prior also. Crisis consulted given medical stabilization and correction of DKA. Continued on home Cymbalta. Suicide precautions maintained. Home Medications: Medications to take at Discharge Insulin Aspart [Novolog Vial] 10 unit SQ TIDCM #1 vial 02/21/18 Insulin Glargine,Hum.rec.anlog [Lantus] 23 unit SQ BID #30 ml 02/21/18 [place], Insulin Disposable [Novofine Autocover 30G Needle] 1 ea MISCELL. UD #1 box 02/21/18 Duloxetine Hcl [Cymbalta] 30 mg PO DAILY 03/08/18 Primary Care Physician: Care Physician,No Primary [Primary Care Provider] - Disposition: Psych Hospital or Unit Minutes spent on discharge:: 35 Patient Condition:: Stable Medical Necessity - Tobacco Use Smoking Status: Never smoker Meaningful Use Info Meaningful Use Diagnoses (Choose all that apply): None applicable Code Visit Inpatient E&M: 34419 Disch Hosp
--- NOTE | 2018-03-10 07:42 | DS.PCM_ITS ---
Discharge Date and Diagnosis Date of Admission: 03/08/18 Date of Discharge: 03/10/18 - Primary Discharge Diagnosis DKA with Diabetes mellitus type I Intractable abdominal pain, nausea, emesis secondary to DKA Suicidal Ideations w/ Anxiety and Depression - Secondary Discharge Diagnosis Chronic Problems Depression (Chronic) Type 1 diabetes mellitus (Chronic) Hospital Course and Treatment Crisis consultation Re: Suicidal ideations, placement Operations: None Procedures: EKG Summary of Care Provided: The patient is a 22 y/o M w/ PMHx: Anxiety and Depression, Diabetes mellitus type I who presents to the [facility] ED on 03/08/18 with history of onset abdominal pain, nausea and emesis x 24 hours w/ concurrent suicidal ideation. Admitted to ICU secondary to ED noted DKA, maintained on aggressive IVFs, insulin drip w/ serial chemistry with gap closure w/ transition to SC regimen, nutrition consulted. Encouraged diet and insulin regimen compliance. Maintained on PPI and reglan. Noted severe depression and SI w/ intention to incorrectly take/ administer his medication, several hospitalizations prior also. Crisis consulted given medical stabilization and correction of DKA. Continued on home Cymbalta. Suicide precautions maintained. Home Medications: Medications to take at Discharge Insulin Aspart [Novolog Vial] 10 unit SQ TIDCM #1 vial 02/21/18 Insulin Glargine,Hum.rec.anlog [Lantus] 23 unit SQ BID #30 ml 02/21/18 [place], Insulin Disposable [Novofine Autocover 30G Needle] 1 ea MISCELL. UD #1 box 02/21/18 Duloxetine Hcl [Cymbalta] 30 mg PO DAILY 03/08/18 Primary Care Physician: Care Physician,No Primary [Primary Care Provider] - Disposition: Psych Hospital or Unit Minutes spent on discharge:: 35 Patient Condition:: Stable Medical Necessity - Tobacco Use Smoking Status: Never smoker Meaningful Use Info Meaningful Use Diagnoses (Choose all that apply): None applicable Code Visit Inpatient E&M: 09475 Disch Hosp
--- NOTE | 2018-03-10 07:43 | PCA ---
Called crisis for patient for consult that doctor put in for patient. Talked to crisis and he said he will send someone over as soon as he can get someone here he said hopefully today.
[2018-03-10] MEDS: Ondansetron 4 MG/2 ML Vial IV (07:54)
[2018-03-10] MEDS: Insulin Lispro 100 UNIT/ML INSULN.PEN SQ ×3 (08:06→21:12)
[2018-03-10] MEDS: Metoclopramide 10 MG/10 ML UDC PO ×4 (08:07→21:13)
[2018-03-10 08:15] LABS: Bedside Glucose 189 mg/dL (70-110)
[2018-03-10] MEDS: DULoxetine Hcl 30 MG Capsule PO (11:42)
[2018-03-10] MEDS: Pantoprazole Sodium 20 MG Tablet PO ×2 (11:42→21:12)
[2018-03-10 12:00] LABS: Bedside Glucose 119 mg/dL (70-110)
--- NOTE | 2018-03-10 14:52 | PCA ---
Called counseling center was wondering when crisis was going to come see patient. They said Guille just finished up with a patient he should be heading this way
--- NOTE | 2018-03-10 15:40 | CHAPLAIN ---
Type of Pastoral Visit _x__ Initial Visit ___ Follow-up Visit ___ On-call Visit ___ General Patient Visit ___ Spiritual Assessment ___ Family Conference ___ Bereavement ___ Rapid Response ___ Code Blue ___ Other (describe below) Pastoral Care Referral From _x__ Patient ___ Family _x__ Nurse ___ Physician ___ Tinning Equipment Tender ___ Rice Farmer ___ Other (describe below) Sacrament/Intervention _x__ Active listening ___ Anointing ___ Restoration ___ Bereavement ___ Communion ___ Lauren exploration ___ _x__ Life review _x__ Prayer ___ Reconciliation ___ Sacrament of Sick _x__ Supportive presence ___ Wedding ___ Other (describe below) Pastoral Comments patient describes himself as lost and lonely; pt speaks of not being able to depend on family, the people you should be able to count on and Mom does not do what she says; pt does not have a job and lives with a brother who works medical language specialist and does not see much; pt says that he has anxiety being around people; when asked about harming himself, the pt responded that he has tried that in the past but would not do that now; pt admitted that his coping strategy is seclusion which only increases his loneliness; pt agreed that would be more open to other possibilities of coping and help; patient responds to questions about spirituality that I just don't know what I believe; pt also had some difficulty putting his feelings into words; pt says he shuts down his emotions; pt was asked if prayer would be acceptable and he said yes; prayer offered and further visits with director of bands if pt wishes to see him; pt did say that he has seen a counselor in the past that he considered a helpful situation; however, pt has moved around and does not live near previous counseling center now or have transportation
[2018-03-10 16:31] LABS: Bedside Glucose 251 mg/dL (70-110)
[2018-03-10 21:20] LABS: Bedside Glucose 284 mg/dL (70-110)
--- NOTE | 2018-03-10 22:45 | NURSING ---
Pt was taken by [facility] to [facility]. Both IV's were removed before transport arrived and pt was very cooperative with transport and hospital staff in coordination with care. Pt belongings were noted and sent with the pt. at this time.
== END 2018-03-10 22:50 | disposition designated cancer center or children's hospital (05) | DRG 295 ==
PROVIDERS: Internal Medicine; Admitting Provider Internal Medicine; Visit Provider Family Medicine
DX: E10.10 Type 1 diabetes mellitus with ketoacidosis without coma (principal); E87.0 Hyperosmolality and hypernatremia; E86.0 Dehydration; R45.851 Suicidal ideations; E87.6 Hypokalemia; Z79.4 Long term (current) use of insulin; Z91.14 Patient's other noncompliance with medication regimen; F41.9 Anxiety disorder, unspecified; F32.9 Major depressive disorder, single episode, unspecified
CPT/HCPCS: 80048; 80053; 80076; 80307; 81001; 82962; 83036; 83605; 83735; 83930; 84484; 85025; 85027; 85610; 85730; 87641; J7030; A4216; J2405; J7799

== ENCOUNTER 2018-03-16 06:20 | Inpatient (IN) | payer MEDICAID, SELFPAY ==
[2018-03-16] VITALS (21 sets, daily range): BP systolic 94–159; BP diastolic 38–87; PULSE 116–150; RESP 9–129; TEMP 36.3–37.1; O2SAT 97–100; BMI 19.7
--- NOTE | 2018-03-16 06:32 | PCM.HP.STD ---
Problem List (1) DKA (diabetic ketoacidoses) Status: Acute (2) DKA (diabetic ketoacidoses) Status: Acute (3) Lactic acidosis Status: Acute (4) Depression Status: Chronic (5) Type 1 diabetes mellitus Status: Chronic History of Present Illness Date of Admission: 03/16/18 Chief Complaint: DKA The patient is a 22 year old male w/ h/o DMI, DKA and noncompliant admitted for DKA. He has 3 other admission for DKA within the past 30 days. He was recently discharged for DKA 2 days ago. During that admission, he was treated for DKA and was also suicidal. He claims to take his medication prior to going to bed but developed severe n/v in AM. Nothing appeared to make his nausea better or worse. He also developed tachypnea and myalgia. He called paramedics and workup disclosed blood sugars in the 600s, bicarb 14, and gap 31. WBC was 27. and Na 132. Moderate ketone noted. Past Medical History Past Medical History (Chronic Problems): Chronic Problems Depression (Chronic) Type 1 diabetes mellitus (Chronic) Allergies No Known Allergies Allergy (Verified 03/08/18 22:16) Home Medications: Ambulatory Orders Medication Instructions Recorded Insulin Aspart [Novolog Vial] 10 unit SQ TIDCM #1 vial 02/21/18 Insulin Glargine,Hum.rec.anlog 23 unit SQ BID #30 ml 02/21/18 [Lantus] [place], Insulin Disposable 1 ea MISCELL. UD #1 box 02/21/18 [Novofine Autocover 30G Needle] Duloxetine Hcl [Cymbalta] 30 mg PO DAILY 03/08/18 Surgical History: no surgical history Psychiatric History: No pertinent psych hx Smoking Status: Never smoker - *Family History Maternal History Items: No pertinent history Paternal History Items: No pertinent history Review of Systems Constitutional: Denies: Chills, Fever, Weight Change HEENT: Denies: Head Aches, Sinus Congestion, Sinus Drainage Cardiovascular: Denies: Chest Pain, Palpitations Respiratory: Denies: Cough, Shortness of breath at rest, Sputum production Gastrointestinal: Reports: Abdominal Pain, Nausea, Vomiting Genitourinary: Denies: Dysuria Musculoskeletal: Denies: Joint Pain, Joint Tenderness Skin: Denies: Rash, Wounds Neurological: Denies: Numbness, Tingling, Focal weakness Psychiatric: Denies: Anxiety, Depression, Homicidal Ideations, Suicidal Ideations Hematologic/ Lymphatic: Denies: Easy Bruising, Easy Bleeding VTE Information - Inpt Only VTE Present on Admission: No VTE Mechan Device Prophylaxis: SCD's VTE Pharm Prophylaxis ordered?: Yes Patient Problems: Active and Suspected Problems DKA (diabetic ketoacidoses) (Acute) - Physical Exam General: Alert, Oriented x3, Cooperative HEENT: Atraumatic, PERRLA, EOMI, Normocephalic Neck: Supple, No JVD, Negative Carotid Bruits Lungs: Clear to auscultation, Normal air movement Cardiovascular: Regular rate, No murmurs Abdomen: Bowel Sounds Present, Soft, Non Tender Extremities: No edema, Capillary Refill Less than 3 Seconds Skin: No rashes, No breakdown Musculoskeletal: No Tenderness to Palpation of Joints or Extremities Neurological: Cranial nerves II-XII grossly intact Psych/Mental Status: Normal Affect, Appropriate Finger Stick Blood Glucose 190 Assessment/Plan All Active Problems DKA (diabetic ketoacidoses) (Acute) Lactic acidosis (Acute) DKA (diabetic ketoacidoses) (Acute) 22 year old male w/ h/o DMI, DKA and noncompliant admitted for DKA. 1) DKA: Moderate serum ketones noted. Anion gap 31 noted. Blood glucose 600s noted. Will start IVF and insulin gtt. Serial labs. 2) Leukocytosis: Probably reactive. WBC 24 Will get cultures. No antibiotic at this time unless febrile. 3) Abdominal pain: Probably secondary to DKA. Would avoid narcotics if possible. Monitor. 4) Prophylaxis: SCD / heparin
[2018-03-16] MEDS: 0.9% Normal Saline 1,000 ML 325 ML IV (07:48)
[2018-03-16] MEDS: Morphine 2 MG/ML Syringe IV ×2 (07:55→12:05)
[2018-03-16] MEDS: Ondansetron 4 MG/2 ML Vial IV ×3 (08:00→20:19)
[2018-03-16 08:12] LABS: AST(SGOT) 69 U/L (15-37); Alanine Aminotransfer ALT/SGPT 72 U/L (16-61); Albumin, Serum 3.7 g/dL (3.2-5.0); Alkaline Phosphatase 104 U/L (45-117); Bilirubin, Direct 0.12 mg/dL (0.00-0.30); Globulin 2.7 g/dL (2.2-4.2); Protein, Total 6.4 g/dL (6.4-8.2)
[2018-03-16 08:13] LABS: Anion Gap 19 (5-15); BUN 16 mg/dL (7-18); BUN/Creat Ratio 15.2 RATIO (10-20); Calcium,Total 8.1 mg/dL (8.5-10.1); Chloride 107 mmol/L (98-107); Creatinine, Serum 1.05 mg/dL (0.70-1.30); EST Glomerular Filtration Rate 93 mL/min (>60); Est Glom Filt Rate - Afr Amer 112 mL/min (>60); Estimated Creatinine Clearance 93.63 ml/min; Glucose 368 mg/dL (74-106); Phosphorus 3.5 mg/dL (2.5-4.9); Potassium 4.8 mmol/L (3.5-5.1); Sodium Level 139 mmol/L (136-145)
[2018-03-16 08:38] LABS: Lipase 33 U/L (73-393)
[2018-03-16 09:07] LABS: M R Staph aureus DNA By PCR Negative (Negative); Probe Check PASS; Specimen Processing Control PASS
[2018-03-16 09:10] LABS: Bedside Glucose 383 mg/dL (70-110)
[2018-03-16 09:20] LABS: Bacteria 0 SEEN /hpf (None Seen); Mucous, Urine 0 SEEN /hpf (<or=2+); Red Blood Cells-Urine 0 SEEN /hpf (0-5); Squamous Epithelial Cells - UA 0 SEEN /hpf (0-5); White Blood Cells 0 SEEN /hpf (0-5)
[2018-03-16 09:22] LABS: Color, Urine Yellow (Yellow); Glucose, Dipstick 1000 mg/dl (Normal); Leukocyte Esterase-Dipstick Negative /ul (Negative); Nitrite-Dipstick Negative (Negative); Occult Blood-Urine 10 /ul (Negative); Protein-Dipstick Negative (Negative); Specific Gravity, Urine 1.015 (1.002-1.030); Urine Bilirubin Dipstick Negative (Negative); Urine Clarity Clear (Clear); Urine Urobilinogen Normal (Normal)
[2018-03-16 09:25] LABS: Ketone-Dipstick 150 mg/dl (Negative)
[2018-03-16 10:01] LABS: Bedside Glucose 348 mg/dL (70-110)
[2018-03-16 10:01] LABS: Bedside Glucose 312 mg/dL (70-110)
[2018-03-16 10:06] LABS: Amphetamine Urine VISTA NEGATIVE (<1000 ng/mL); Barbiturate Urine VISTA NEGATIVE (< 200 ng/mL); Benzodiazepine Urine VISTA NEGATIVE (< 200 ng/mL); Cocaine Urine VISTA NEGATIVE (< 300 ng/mL); Ecstacy Urine VISTA NEGATIVE (< 500 ng/mL); Methadone Urine VISTA NEGATIVE (< 300 ng/mL); PCP Urine VISTA NEGATIVE (< 25 ng/mL); THC Urine VISTA NEGATIVE (< 50 ng/mL); Vista UDS pH Range 5
[2018-03-16] MEDS: 0.9% Normal Saline 1,000 ML 175 ML IV (10:57)
[2018-03-16 11:15] LABS: Anion Gap 12 (5-15); BUN 13 mg/dL (7-18); BUN/Creat Ratio 13.9 RATIO (10-20); Calcium,Total 7.9 mg/dL (8.5-10.1); Chloride 113 mmol/L (98-107); Creatinine, Serum 0.94 mg/dL (0.70-1.30); EST Glomerular Filtration Rate 106 mL/min (>60); Est Glom Filt Rate - Afr Amer 128 mL/min (>60); Estimated Creatinine Clearance 104.59 ml/min; Glucose 239 mg/dL (74-106); Potassium 4.6 mmol/L (3.5-5.1); Sodium Level 142 mmol/L (136-145)
[2018-03-16] MEDS: Metoclopramide 10 MG/2 ML Vial 5 MG IV (12:05)
[2018-03-16] MEDS: 0.9% NaCl Peripheral Flush Adult/Peds IV ×3 (12:06→21:35)
[2018-03-16 13:05] LABS: Bedside Glucose 214 mg/dL (70-110)
[2018-03-16 13:05] LABS: Bedside Glucose 223 mg/dL (70-110)
--- NOTE | 2018-03-16 13:21 | PCM.PN.BLA ---
Progress Note Patient w/ tremors, complaining of abdominal cramping and pain, nausea and emesis. Recent discharge to psychiatric facility and then following discharge evaluation at [facility] ED w/ transfer to [facility] with DKA. Mild, now resolving, AG closed x 1, expect soon closure x 2 w/ planned transition to [place], [facility] if able if N/V resolves. Patient noting pain and comments concerning for possible malingering. Given presentation and negative UDS do suspect possible opiate withdrawal for symptoms. Improved w/ narcotic administration. Will initiate subutex regimen and monitor, if notable improvement may be component to recurrent admissions w/ DKA.
[2018-03-16 14:16] LABS: Bedside Glucose 251 mg/dL (70-110)
[2018-03-16 14:16] LABS: Bedside Glucose 214 mg/dL (70-110)
[2018-03-16] MEDS: Buprenorphine HCl 2 MG TAB.SUBL 4 MG SL ×2 (14:47→22:41)
[2018-03-16] MEDS: Heparin Injection (Vial) 5,000 UNIT/ML VIAL 5000 UNIT SC ×2 (14:52→22:37)
[2018-03-16 14:59] LABS: Anion Gap 11 (5-15); BUN 11 mg/dL (7-18); BUN/Creat Ratio 12.9 RATIO (10-20); Calcium,Total 7.6 mg/dL (8.5-10.1); Chloride 116 mmol/L (98-107); Creatinine, Serum 0.85 mg/dL (0.70-1.30); EST Glomerular Filtration Rate 118 mL/min (>60); Est Glom Filt Rate - Afr Amer 143 mL/min (>60); Estimated Creatinine Clearance 115.66 ml/min; Glucose 183 mg/dL (74-106); Potassium 4.1 mmol/L (3.5-5.1); Sodium Level 145 mmol/L (136-145)
[2018-03-16 15:20] LABS: Bedside Glucose 189 mg/dL (70-110)
--- NOTE | 2018-03-16 15:29 | NURSING ---
resuming care of patient at this point with Dee Lopez RN, report received from Winter Buck RN
[2018-03-16] MEDS: Dext 5%-0.45% NS 1,000 ML 150 ML IV (16:29)
[2018-03-16 16:31] LABS: Bedside Glucose 196 mg/dL (70-110)
--- NOTE | 2018-03-16 18:33 | NURSING ---
reviewed D betty RN charting and agree with assessment findings
[2018-03-16 19:04] LABS: Anion Gap 14 (5-15); BUN 10 mg/dL (7-18); BUN/Creat Ratio 11.4 RATIO (10-20); Chloride 110 mmol/L (98-107); Creatinine, Serum 0.88 mg/dL (0.70-1.30); EST Glomerular Filtration Rate 114 mL/min (>60); Est Glom Filt Rate - Afr Amer 138 mL/min (>60); Estimated Creatinine Clearance 111.72 ml/min; Glucose 273 mg/dL (74-106); Potassium 4.5 mmol/L (3.5-5.1); Sodium Level 140 mmol/L (136-145)
[2018-03-16] MEDS: Acetaminophen 325 MG Tablet 650 MG PO (20:16)
[2018-03-16] MEDS: proMETHazine 25 MG/ML Syringe 12.5 MG IV (21:35)
[2018-03-16 21:46] LABS: Bedside Glucose 241 mg/dL (70-110)
[2018-03-16 22:16] LABS: Anion Gap 14 (5-15); BUN 8 mg/dL (7-18); BUN/Creat Ratio 8.9 RATIO (10-20); Calcium,Total 8.1 mg/dL (8.5-10.1); Chloride 108 mmol/L (98-107); EST Glomerular Filtration Rate 111 mL/min (>60); Est Glom Filt Rate - Afr Amer 135 mL/min (>60); Estimated Creatinine Clearance 109.24 ml/min; Glucose 261 mg/dL (74-106); Potassium 4.2 mmol/L (3.5-5.1); Sodium Level 140 mmol/L (136-145)
[2018-03-16] MEDS: Insulin Lispro 100 UNIT/ML INSULN.PEN SC (22:37)
[2018-03-16] MEDS: Pantoprazole Sodium 20 MG Tablet PO (22:38)
[2018-03-17] VITALS (7 sets, daily range): BP systolic 95–142; BP diastolic 49–95; PULSE 98–142; RESP 12–16; TEMP 36.4–37.1; O2SAT 95–99
[2018-03-17 03:10] LABS: Bedside Glucose 160 mg/dL (70-110)
[2018-03-17] MEDS: proMETHazine 25 MG/ML Syringe 12.5 MG IV ×3 (03:10→15:16)
[2018-03-17] MEDS: 0.9% NaCl Peripheral Flush Adult/Peds IV ×2 (03:11→08:59)
[2018-03-17] MEDS: Heparin Injection (Vial) 5,000 UNIT/ML VIAL 5000 UNIT SC ×3 (05:04→22:21)
[2018-03-17] MEDS: Buprenorphine HCl 2 MG TAB.SUBL 4 MG SL (05:04)
[2018-03-17 05:54] LABS: Anion Gap 10 (5-15); BUN 7 mg/dL (7-18); BUN/Creat Ratio 7.5 RATIO (10-20); Calcium,Total 8.4 mg/dL (8.5-10.1); Chloride 110 mmol/L (98-107); Creatinine, Serum 0.94 mg/dL (0.70-1.30); EST Glomerular Filtration Rate 106 mL/min (>60); Est Glom Filt Rate - Afr Amer 128 mL/min (>60); Estimated Creatinine Clearance 106.32 ml/min; Glucose 136 mg/dL (74-106); Potassium 4.1 mmol/L (3.5-5.1); Sodium Level 145 mmol/L (136-145)
[2018-03-17 06:34] LABS: Absolute Lymphocyte Count 2.24 X10^3/ul (0.83-4.51); Absolute Neutrophil Count 16.9 X10^3/uL (2.0-7.7); Basophil# 0.02 X10^3/uL; Basophil% 0.1 % (0-1); Eosinophil# 0.03 X10^3/uL; Eosinophils% 0.1 % (0-5); Hematocrit 41.7 % (40-54); Hemoglobin 14.8 g/dl (13.0-16.5); Lymphocyte # 2.24 X10^3/ul (4.0); Lymphocyte % 10.8 % (19-41); Mean Corp Hgb Conc 35.5 g/gl (32-36); Mean Corpuscular Hgb 33.3 pg (27.0-32.0); Mean Corpuscular Volume 93.9 fL (80-94); Monocyte# 1.52 X10^3/uL; Monocyte% 7.3 % (0-10); Neutrophil # 16.89 X10^3/uL (2.7-7.7); Neutrophil % 81.2 % (47-70); Platelet Count 332 K/mm3 (150-450); RBC Distribution Width CV 13.7 % (11.6-14.6); RBC Distribution Width SD 45.1 fl (35.1-43.9); Red Blood Count 4.44 M/mm3 (4.6-6.2); White Blood Count 20.8 K/mm3 (4.4-11.0)
[2018-03-17 06:42] LABS: Differential Indicated SCAN CRITERIA MET; POSITIVE COUNT NO; POSITIVE DIFFERENTIAL YES; POSITIVE MORPHOLOGY NO
[2018-03-17 07:00] LABS: Differential Comment SCANNED
[2018-03-17 07:19] LABS: Bedside Glucose 354 mg/dL (70-110)
[2018-03-17 08:25] LABS: Bedside Glucose 131 mg/dL (70-110)
--- NOTE | 2018-03-17 08:25 | PCM.PN.HOSP ---
Patient Problems: Active and Suspected Problems DKA (diabetic ketoacidoses) (Acute) Subjective: Denies any opiate use. Still with some vomiting. States that he has been compliant with his insulin regimen at home. Vitals/I&O's: Vital Signs Temp Pulse Resp BP Pulse Ox 36.7 C 111 H 14 118/66 99 03/17/18 03:00 03/17/18 03:00 03/17/18 03:00 03/17/18 03:00 03/17/18 03:00 Oxygen Delivery Method Room Air Weight: 61.5 kg Body Mass Index (BMI) 19.7 Finger Stick Blood Glucose 190 Intake and Output for Last 24 Hours 03/15/18 03/16/18 03/17/18 23:59 23:59 23:59 Intake Total 3437.3 / 3437.3 600 / 600 Output Total 2250 / 2250 800 / 800 Balance 1187.3 / 1187.3 -200 / -200 General: Alert, Cooperative, No apparent distress, - - Emesis bag filled with brown liquid emesis. HEENT: Atraumatic, Normocephalic Neck: No Nodes, Thyroid Normal Size and Texture Lungs: Clear to auscultation, Normal air movement, No rhonchi, No wheeze Cardiovascular: Regular rate, Regular Rhythm, Normal S1, Normal S2, No murmurs Abdomen: Bowel Sounds Present, Soft, Non Tender, Non-Distended, No Hepato-splenomegaly Extremities: No edema, No Calf Tenderness Skin: No rashes, No breakdown Musculoskeletal: No Tenderness to Palpation of Joints or Extremities, No Muscle Wasting Neurological: Deep Tendon Reflexes 2+/4 and Symmetrical, - - No clonus Psych/Mental Status: Normal Affect, Appropriate Laboratory Results 03/16/18 06:25: MRSA (PCR) Negative 03/16/18 06:26: POC Glucose 354 H 03/16/18 07:30: Lipase 33 L 03/16/18 07:54: POC Glucose 383 H 03/16/18 09:07: POC Glucose 348 H 03/16/18 09:10: Urine Color Yellow, Urine Clarity Clear, Urine pH 5.0, Ur Specific [place] 1.015, Urine Protein Negative, Urine Glucose (UA) 1000 H, Urine Ketones 150 H, Urine Occult Blood 10 H, Urine Nitrite Negative, Urine Bilirubin Negative, Urine Urobilinogen Normal, Ur Leukocyte Esterase Negative, Urine RBC 0 SEEN, Urine WBC 0 SEEN, Ur Squamous Epith Cells 0 SEEN, Urine Bacteria 0 SEEN, Urine Mucus 0 SEEN 03/16/18 09:22: Urine Opiates Screen NEGATIVE, Urine Methadone Screen NEGATIVE, Ur Barbiturates Screen NEGATIVE, Ur Phencyclidine Scrn NEGATIVE, Ur Amphetamines Screen NEGATIVE, U Methamphetamin-MDMA NEGATIVE, U Benzodiazepines Scrn NEGATIVE, Urine Cocaine Screen NEGATIVE, U Cannabinoids Screen NEGATIVE, Ur Drug Screen Comment 03/16/18 09:57: POC Glucose 312 H 03/16/18 10:50: Sodium 142, Potassium 4.6, Chloride 113 H, Carbon Dioxide 17.0 L, Anion Gap 12, BUN 13, Creatinine 0.94, Estim Creat Clear Calc 104.59, Est GFR (MDRD) Af Amer 128, Est GFR (MDRD) Non-Af 106, BUN/Creatinine Ratio 13.9, Glucose 239 H, Calcium 7.9 L 03/16/18 10:50: Troponin I < 0.015 03/16/18 10:55: POC Glucose 214 H 03/16/18 12:00: POC Glucose 223 H 03/16/18 13:02: POC Glucose 251 H 03/16/18 14:03: POC Glucose 214 H 03/16/18 14:30: Sodium 145, Potassium 4.1, Chloride 116 H, Carbon Dioxide 18.0 L, Anion Gap 11, BUN 11, Creatinine 0.85, Estim Creat Clear Calc 115.66, Est GFR (MDRD) Af Amer 143, Est GFR (MDRD) Non-Af 118, BUN/Creatinine Ratio 12.9, Glucose 183 H, Calcium 7.6 L 03/16/18 15:15: POC Glucose 189 H 03/16/18 16:24: POC Glucose 196 H 03/16/18 18:30: Sodium 140, Potassium 4.5, Chloride 110 H, Carbon Dioxide 16.0 L, Anion Gap 14, BUN 10, Creatinine 0.88, Estim Creat Clear Calc 111.72, Est GFR (MDRD) Af Amer 138, Est GFR (MDRD) Non-Af 114, BUN/Creatinine Ratio 11.4, Glucose 273 H, Calcium 8.0 L 03/16/18 21:23: POC Glucose 241 H 03/16/18 21:58: Sodium 140, Potassium 4.2, Chloride 108 H, Carbon Dioxide 18.0 L, Anion Gap 14, BUN 8, Creatinine 0.90, Estim Creat Clear Calc 109.24, Est GFR (MDRD) Af Amer 135, Est GFR (MDRD) Non-Af 111, BUN/Creatinine Ratio 8.9 L, Glucose 261 H, Calcium 8.1 L 03/17/18 03:07: POC Glucose 160 H 03/17/18 05:00: WBC 20.8 H, RBC 4.44 L, Hgb 14.8, Hct 41.7, MCV 93.9, MCH 33.3 H, MCHC 35.5, RDW 13.7, RDW Differential 45.1 H, Plt Count 332, MPV 9.0, Immature Gran % (Auto) 0.500, Neut % (Auto) 81.2 H, Lymph % (Auto) 10.8 L, [place] % (Auto) 7.3, Eos % (Auto) 0.1, Baso % (Auto) 0.1, Absolute Neuts (auto) 16.9 H, Absolute Lymphs (auto) 2.24, Total Counted Not Reportable, Differential Comment SCANNED, Diff Path Review January foll 03/17/18 05:00: Sodium 145, Potassium 4.1, Chloride 110 H, Carbon Dioxide 25.0, Anion Gap 10, BUN 7, Creatinine 0.94, Estim Creat Clear Calc 106.32, Est GFR (MDRD) Af Amer 128, Est GFR (MDRD) Non-Af 106, BUN/Creatinine Ratio 7.5 L, Glucose 136 H, Calcium 8.4 L 03/17/18 08:19: POC Glucose Pending Current Medications Acetaminophen (Tylenol) 650 mg PO Q6H PRN PRN PRN Reason: PAIN Last Admin: 03/16/18 20:16 Dose: 650 mg Buprenorphine HCl (Buprenorphine Hcl) 4 mg SL Q8H KRISTINE PRN Reason: Taper Stop: 03/19/18 17:59 Last Admin: 03/17/18 05:04 Dose: 4 mg Chlorhexidine Gluconate () 1 each TOPICAL DAILY [facility] Last Admin: 03/16/18 10:53 Dose: Not Given Clonidine (Catapres) 0.1 mg PO Q2H PRN PRN PRN Reason: Hot/Cold Sweats or Anxiety Dextrose (D50w Syringe) 0 gm IV X1 PRN; Protocol PRN Reason: AGITATION Dicyclomine HCl (Bentyl) 20 mg PO Q6H PRN PRN PRN Reason: Abdomnial Discomfort Duloxetine HCl (Cymbalta) 30 mg PO DAILY [facility] Last Admin: 03/16/18 10:52 Dose: Not Given Heparin Sodium (Porcine) (Heparin Na) 5,000 unit SC Q8 [facility] Last Admin: 03/17/18 05:04 Dose: 5,000 u Hydralazine HCl (Apresoline Iv) 10 mg IV Q4H PRN PRN PRN Reason: SBP > 160 Hydroxyzine HCl (Vistaril Vial) 50 mg IM Q6H PRN PRN PRN Reason: Breakthrough Anxiety Hydroxyzine Pamoate (Vistaril Pamoate Capsule) 50 mg PO Q6H PRN PRN PRN Reason: Mild Anxiety (score 1/3) Sodium Chloride () 250 mls @ 15 mls/hr IV .[id number] PRN PRN Reason: SALINE FLUSH Dextrose/Sodium Chloride () 1,000 mls @ 150 mls/hr IV .Q6H40M [facility] Last Admin: 03/17/18 03:14 Dose: Not Given Insulin Glargine (Lantus (Bkc)) 23 units SC BID [facility] Last Admin: 03/16/18 22:38 Dose: 23 u Insulin Human Lispro (Humalog Kwikpen (Bkc)) 0 unit SC ACHS [facility] PRN Reason: Protocol Last Admin: 03/16/18 22:37 Dose: 3 u Methocarbamol (Methocarbamol) 750 mg PO Q6H PRN PRN PRN Reason: Muscle Aches Metoclopramide HCl (Reglan) 5 mg IV Q8H PRN PRN PRN Reason: nausea, emesis Last Admin: 03/16/18 12:05 Dose: 5 mg Morphine Sulfate () 1 - 2 mg IV Q4H PRN PRN PRN Reason: PAIN Last Admin: 03/16/18 12:05 Dose: 1 mg Ondansetron HCl (Zofran) 4 mg IV Q6H PRN PRN PRN Reason: nausea, emesis Last Admin: 03/16/18 20:19 Dose: 4 mg Pantoprazole Sodium (Protonix) 20 mg PO BID [facility] Last Admin: 03/16/18 22:38 Dose: 20 mg Pramipexole Dihydrochloride (Mirapex) 0.25 mg PO Q12H PRN PRN PRN Reason: Restless Legs Promethazine HCl (Phenergan) 12.5 mg IV Q4H PRN PRN PRN Reason: NAUSEA/VOMITING Last Admin: 03/17/18 03:10 Dose: 12.5 mg Quetiapine Fumarate (Seroquel) 25 mg PO Q6H PRN PRN PRN Reason: Moderate Anxiety (score 2/3) Sodium Chloride () 5 - 30 ml IV UD PRN PRN Reason: SALINE FLUSH Last Admin: 03/17/18 03:11 Dose: 10 ml Trazodone HCl (Desyrel) 50 mg PO QHS [facility] Last Admin: 03/16/18 22:36 Dose: Not Given Medical Necessity - Tobacco Use Smoking Status: Never smoker Assessment/Plan All Active Problems DKA (diabetic ketoacidoses) (Acute) Lactic acidosis (Acute) DKA (diabetic ketoacidoses) (Acute) 1. Diabetic ketoacidosis Clinically resolved at this time. Back on long-acting and short acting insulin. Patient endorses compliance with his diabetes medications. Though he does state that he will need Bezaclar 23 units BID prescription at home. Does not take opiates therefore Subutex will not be necessary and will be discontinued. This is not opiate withdrawal precipitating his DKA. 2. Nausea and vomiting Unclear what may be going on with him but abdominal exam is benign. Question if patient does have some diabetic gastroparesis or some gastroenteritis that may have precipitated all this. Supportive management for now However if this seems to be more of a chronic process then consideration for a gastric emptying study may be a consideration. 3. DVT prophylaxis with heparin Code Visit Inpatient E&M: 42375 Subs Hosp L2
--- NOTE | 2018-03-17 08:30 | PN_ITS ---
Patient Problems: Active and Suspected Problems DKA (diabetic ketoacidoses) (Acute) Subjective: Denies any opiate use. Still with some vomiting. States that he has been compliant with his insulin regimen at home. Vitals/I&O's: Vital Signs Temp Pulse Resp BP Pulse Ox 36.7 C 111 H 14 118/66 99 03/17/18 03:00 03/17/18 03:00 03/17/18 03:00 03/17/18 03:00 03/17/18 03:00 Oxygen Delivery Method Room Air Weight: 61.5 kg Body Mass Index (BMI) 19.7 Finger Stick Blood Glucose 190 Intake and Output for Last 24 Hours 03/15/18 03/16/18 03/17/18 23:59 23:59 23:59 Intake Total 3437.3 / 3437.3 600 / 600 Output Total 2250 / 2250 800 / 800 Balance 1187.3 / 1187.3 -200 / -200 General: Alert, Cooperative, No apparent distress, - - Emesis bag filled with brown liquid emesis. HEENT: Atraumatic, Normocephalic Neck: No Nodes, Thyroid Normal Size and Texture Lungs: Clear to auscultation, Normal air movement, No rhonchi, No wheeze Cardiovascular: Regular rate, Regular Rhythm, Normal S1, Normal S2, No murmurs Abdomen: Bowel Sounds Present, Soft, Non Tender, Non-Distended, No Hepato- splenomegaly Extremities: No edema, No Calf Tenderness Skin: No rashes, No breakdown Musculoskeletal: No Tenderness to Palpation of Joints or Extremities, No Muscle Wasting Neurological: Deep Tendon Reflexes 2+/4 and Symmetrical, - - No clonus Psych/Mental Status: Normal Affect, Appropriate Laboratory Results 03/16/18 06:25: MRSA (PCR) Negative 03/16/18 06:26: POC Glucose 354 H 03/16/18 07:30: Lipase 33 L 03/16/18 07:54: POC Glucose 383 H 03/16/18 09:07: POC Glucose 348 H 03/16/18 09:10: Urine Color Yellow, Urine Clarity Clear, Urine pH 5.0, Ur Specific [place] 1.015, Urine Protein Negative, Urine Glucose (UA) 1000 H, Urine Ketones 150 H, Urine Occult Blood 10 H, Urine Nitrite Negative, Urine Bilirubin Negative, Urine Urobilinogen Normal, Ur Leukocyte Esterase Negative, Urine RBC 0 SEEN, Urine WBC 0 SEEN, Ur Squamous Epith Cells 0 SEEN, Urine Bacteria 0 SEEN, Urine Mucus 0 SEEN 03/16/18 09:22: Urine Opiates Screen NEGATIVE, Urine Methadone Screen NEGATIVE, Ur Barbiturates Screen NEGATIVE, Ur Phencyclidine Scrn NEGATIVE, Ur Amphetamines Screen NEGATIVE, U Methamphetamin-MDMA NEGATIVE, U Benzodiazepines Scrn NEGATIVE, Urine Cocaine Screen NEGATIVE, U Cannabinoids Screen NEGATIVE, Ur Drug Screen Comment 03/16/18 09:57: POC Glucose 312 H 03/16/18 10:50: Sodium 142, Potassium 4.6, Chloride 113 H, Carbon Dioxide 17.0 L , Anion Gap 12, BUN 13, Creatinine 0.94, Estim Creat Clear Calc 104.59, Est GFR (MDRD) Af Amer 128, Est GFR (MDRD) Non-Af 106, BUN/Creatinine Ratio 13.9, Glucose 239 H, Calcium 7.9 L 03/16/18 10:50: Troponin I < 0.015 03/16/18 10:55: POC Glucose 214 H 03/16/18 12:00: POC Glucose 223 H 03/16/18 13:02: POC Glucose 251 H 03/16/18 14:03: POC Glucose 214 H 03/16/18 14:30: Sodium 145, Potassium 4.1, Chloride 116 H, Carbon Dioxide 18.0 L , Anion Gap 11, BUN 11, Creatinine 0.85, Estim Creat Clear Calc 115.66, Est GFR (MDRD) Af Amer 143, Est GFR (MDRD) Non-Af 118, BUN/Creatinine Ratio 12.9, Glucose 183 H, Calcium 7.6 L 03/16/18 15:15: POC Glucose 189 H 03/16/18 16:24: POC Glucose 196 H 03/16/18 18:30: Sodium 140, Potassium 4.5, Chloride 110 H, Carbon Dioxide 16.0 L , Anion Gap 14, BUN 10, Creatinine 0.88, Estim Creat Clear Calc 111.72, Est GFR (MDRD) Af Amer 138, Est GFR (MDRD) Non-Af 114, BUN/Creatinine Ratio 11.4, Glucose 273 H, Calcium 8.0 L 03/16/18 21:23: POC Glucose 241 H 03/16/18 21:58: Sodium 140, Potassium 4.2, Chloride 108 H, Carbon Dioxide 18.0 L , Anion Gap 14, BUN 8, Creatinine 0.90, Estim Creat Clear Calc 109.24, Est GFR ( MDRD) Af Amer 135, Est GFR (MDRD) Non-Af 111, BUN/Creatinine Ratio 8.9 L, Glucose 261 H, Calcium 8.1 L 03/17/18 03:07: POC Glucose 160 H 03/17/18 05:00: WBC 20.8 H, RBC 4.44 L, Hgb 14.8, Hct 41.7, MCV 93.9, MCH 33.3 H , MCHC 35.5, RDW 13.7, RDW Differential 45.1 H, Plt Count 332, MPV 9.0, Immature Gran % (Auto) 0.500, Neut % (Auto) 81.2 H, Lymph % (Auto) 10.8 L, [place] % (Auto) 7.3, Eos % (Auto) 0.1, Baso % (Auto) 0.1, Absolute Neuts (auto) 16.9 H , Absolute Lymphs (auto) 2.24, Total Counted Not Reportable, Differential Comment SCANNED, Diff Path Review January foll 03/17/18 05:00: Sodium 145, Potassium 4.1, Chloride 110 H, Carbon Dioxide 25.0, Anion Gap 10, BUN 7, Creatinine 0.94, Estim Creat Clear Calc 106.32, Est GFR ( MDRD) Af Amer 128, Est GFR (MDRD) Non-Af 106, BUN/Creatinine Ratio 7.5 L, Glucose 136 H, Calcium 8.4 L 03/17/18 08:19: POC Glucose Pending Current Medications Acetaminophen (Tylenol) 650 mg PO Q6H PRN PRN PRN Reason: PAIN Last Admin: 03/16/18 20:16 Dose: 650 mg Buprenorphine HCl (Buprenorphine Hcl) 4 mg SL Q8H KRISTINE PRN Reason: Taper Stop: 03/19/18 17:59 Last Admin: 03/17/18 05:04 Dose: 4 mg Chlorhexidine Gluconate () 1 each TOPICAL DAILY [facility] Last Admin: 03/16/18 10:53 Dose: Not Given Clonidine (Catapres) 0.1 mg PO Q2H PRN PRN PRN Reason: Hot/Cold Sweats or Anxiety Dextrose (D50w Syringe) 0 gm IV X1 PRN; Protocol PRN Reason: AGITATION Dicyclomine HCl (Bentyl) 20 mg PO Q6H PRN PRN PRN Reason: Abdomnial Discomfort Duloxetine HCl (Cymbalta) 30 mg PO DAILY [facility] Last Admin: 03/16/18 10:52 Dose: Not Given Heparin Sodium (Porcine) (Heparin Na) 5,000 unit SC Q8 [facility] Last Admin: 03/17/18 05:04 Dose: 5,000 u Hydralazine HCl (Apresoline Iv) 10 mg IV Q4H PRN PRN PRN Reason: SBP > 160 Hydroxyzine HCl (Vistaril Vial) 50 mg IM Q6H PRN PRN PRN Reason: Breakthrough Anxiety Hydroxyzine Pamoate (Vistaril Pamoate Capsule) 50 mg PO Q6H PRN PRN PRN Reason: Mild Anxiety (score 1/3) Sodium Chloride () 250 mls @ 15 mls/hr IV .[id number] PRN PRN Reason: SALINE FLUSH Dextrose/Sodium Chloride () 1,000 mls @ 150 mls/hr IV .Q6H40M [facility] Last Admin: 03/17/18 03:14 Dose: Not Given Insulin Glargine (Lantus (Bkc)) 23 units SC BID [facility] Last Admin: 03/16/18 22:38 Dose: 23 u Insulin Human Lispro (Humalog Kwikpen (Bkc)) 0 unit SC ACHS [facility] PRN Reason: Protocol Last Admin: 03/16/18 22:37 Dose: 3 u Methocarbamol (Methocarbamol) 750 mg PO Q6H PRN PRN PRN Reason: Muscle Aches Metoclopramide HCl (Reglan) 5 mg IV Q8H PRN PRN PRN Reason: nausea, emesis Last Admin: 03/16/18 12:05 Dose: 5 mg Morphine Sulfate () 1 - 2 mg IV Q4H PRN PRN PRN Reason: PAIN Last Admin: 03/16/18 12:05 Dose: 1 mg Ondansetron HCl (Zofran) 4 mg IV Q6H PRN PRN PRN Reason: nausea, emesis Last Admin: 03/16/18 20:19 Dose: 4 mg Pantoprazole Sodium (Protonix) 20 mg PO BID [facility] Last Admin: 03/16/18 22:38 Dose: 20 mg Pramipexole Dihydrochloride (Mirapex) 0.25 mg PO Q12H PRN PRN PRN Reason: Restless Legs Promethazine HCl (Phenergan) 12.5 mg IV Q4H PRN PRN PRN Reason: NAUSEA/VOMITING Last Admin: 03/17/18 03:10 Dose: 12.5 mg Quetiapine Fumarate (Seroquel) 25 mg PO Q6H PRN PRN PRN Reason: Moderate Anxiety (score 2/3) Sodium Chloride () 5 - 30 ml IV UD PRN PRN Reason: SALINE FLUSH Last Admin: 03/17/18 03:11 Dose: 10 ml Trazodone HCl (Desyrel) 50 mg PO QHS [facility] Last Admin: 03/16/18 22:36 Dose: Not Given Medical Necessity - Tobacco Use Smoking Status: Never smoker Assessment/Plan All Active Problems DKA (diabetic ketoacidoses) (Acute) Lactic acidosis (Acute) DKA (diabetic ketoacidoses) (Acute) 1. Diabetic ketoacidosis * Clinically resolved at this time. Back on long-acting and short acting insulin. * Patient endorses compliance with his diabetes medications. Though he does state that he will need Bezaclar 23 units BID prescription at home. * Does not take opiates therefore Subutex will not be necessary and will be discontinued. This is not opiate withdrawal precipitating his DKA. 2. Nausea and vomiting * Unclear what may be going on with him but abdominal exam is benign. Question if patient does have some diabetic gastroparesis or some gastroenteritis that may have precipitated all this. * Supportive management for now * However if this seems to be more of a chronic process then consideration for a gastric emptying study may be a consideration. 3. DVT prophylaxis with heparin Code Visit Inpatient E&M: 94200 Subs Hosp L2
[2018-03-17] MEDS: Metoclopramide 10 MG/2 ML Vial 5 MG IV ×2 (08:57→15:20)
[2018-03-17] MEDS: 0.9% Normal Saline 1,000 ML 100 ML IV ×2 (09:05→16:53)
[2018-03-17] MEDS: Pantoprazole Sodium 20 MG Tablet PO ×2 (10:45→22:23)
--- NOTE | 2018-03-17 10:56 | CASEMGMT ---
EMORY ARRIETA RE-ADMISSION NOTE: Pt last admission was 03-08-18 to 03-10-18. Treatment for hyperglycemia, non-compliant diabetic, suicidal ideation. Transferred to [facility] on discharge. Present admission date of 03-16-18 for DKA. Introduced Role of EMORY ARRIETA to patient in room. Demographics and PCP verified. Pt states he does not have current feelings of hopelessness. Pt states, I'm not sure what happened this time, I just started not feeling well. Pt states has diabetic supplies and that he has not had difficulty with obtaining supplies from his [facility] in [place]. Discussion with pt re: Diabetic Clinic. Pt states he would be interested in going to a Clinic if it was in the [facility] area. Information obtained for [facility] diabetic program and will give this information to patient. [facility] [phone] Nolan LOCKETTN EMORY ARRIETA
--- NOTE | 2018-03-17 10:58 | CASEMGMT ---
SW received referral from as pt was here recently and went to [place], was discharged from there just a couple of days ago. Pt confirmed is living w/his brother in [place] at this time. Pt states he does have appts for counseling set up for Saturday and Saturday, does not know if he will be out of the hospital in time to make those appts. As per RN, pt may not be discharged today as he is not tolerating food. SW offered to call the agency for the pt, he cannot remember the name of it. SW offered to write pt a letter stating he is here in the hospital to give to the agency so they do not consider him a no show, and encouraged him to call the agency when he does get home. Pt would like a letter, and states understanding. Pt denies being suicidal at this time, states mentally is feeling okay. SW did give pt a letter stating he is here in the hospital and not yet ready for discharge. SW let pt know if he does come up w/the name of the counseling agency and would like SW to call to let them know he is here, just let his RN know and SW can come back. Pt states understanding. Otherwise, no further social service needs are anticipated at this time. MARY Mendez, BRIDGE BUILDER
[2018-03-17] MEDS: Ondansetron 4 MG/2 ML Vial IV (12:12)
[2018-03-17] MEDS: Insulin Lispro 100 UNIT/ML INSULN.PEN 10 UNIT SC (12:17)
[2018-03-17] MEDS: Insulin Lispro 100 UNIT/ML INSULN.PEN SC (12:17)
[2018-03-17 12:21] LABS: Bedside Glucose 157 mg/dL (70-110)
[2018-03-17 22:36] LABS: Bedside Glucose 174 mg/dL (70-110)
[2018-03-18 03:10] VITALS: BP 133/76; PULSE 98; RESP 16; TEMP 36.8; O2SAT 98
[2018-03-18] MEDS: Heparin Injection (Vial) 5,000 UNIT/ML VIAL 5000 UNIT SC (05:42)
[2018-03-18] MEDS: 0.9% Normal Saline 1,000 ML 100 ML IV (05:43)
[2018-03-18 07:11] LABS: Bedside Glucose 73 mg/dL (70-110)
[2018-03-18 07:11] LABS: Bedside Glucose 57 mg/dL (70-110)
[2018-03-18 07:11] LABS: Bedside Glucose 63 mg/dL (70-110)
[2018-03-18] MEDS: Dextrose 50%-Water 25 GM/50 ML DISP.SYRIN IV (07:29)
[2018-03-18 07:51] LABS: Bedside Glucose 51 mg/dL (70-110)
[2018-03-18 07:51] LABS: Bedside Glucose 122 mg/dL (70-110)
[2018-03-18 07:51] LABS: Bedside Glucose 54 mg/dL (70-110)
[2018-03-18 09:00] VITALS: BP 142/85; PULSE 104; RESP 16; TEMP 36.8; O2SAT 100
[2018-03-18] MEDS: DULoxetine Hcl 30 MG Capsule PO (09:53)
[2018-03-18] MEDS: Pantoprazole Sodium 20 MG Tablet PO (09:54)
[2018-03-18 11:30] LABS: Bedside Glucose 188 mg/dL (70-110)
[2018-03-18 11:41] LABS: Pathologist Review Reviewed
--- NOTE | 2018-03-18 11:45 | PCM.DC ---
- Discharge Diagnoses Current Active Problems: Current Active and Chronic Problems DKA (diabetic ketoacidoses) (Acute) You will use the following diet at home:: No restrictions Discharge Activity: Return to Normal Activity Call your doctor if you observe: Shortness of breath, Dizziness, Fainting spells, Chest pain Additional Instructions: Continue to check blood glucose before meals and at bedtime at home. Allergies/Adverse Reactions: Allergies No Known Allergies Allergy (Verified 03/08/18 22:16) Medications to take at Discharge Insulin Aspart [Novolog Vial] 10 unit SQ TIDCM #1 vial 02/21/18 Insulin Glargine,Hum.rec.anlog [Lantus] 23 unit SQ BID #30 ml 02/21/18 Duloxetine Hcl [Cymbalta] 30 mg PO DAILY 03/08/18 [place], Insulin Disposable [Novofine Autocover 30G Needle] 1 each MISCELL. UD 03/16/18 traZODone [Desyrel] 50 mg PO QHS 03/16/18 Primary Care Physician: Jose Daniel Malik MD [Primary Care Provider] - Please follow up with your Primary Care Physician in: 1 Week Please Follow Up With: Trustee Of Estate in [place] When: Within one week Please Follow Up With: [facility] Diabetic Education Program When: Please call for appt Proposed Discharge Date: 03/18/18
--- NOTE | 2018-03-18 11:48 | PCM.DC.SUM ---
<Jessica Barrera - Last Filed: 03/18/18 12:03> Discharge Date and Diagnosis Date of Admission: 03/16/18 Date of Discharge: 03/18/18 - Primary Discharge Diagnosis Active and Suspected Problems 1. DKA (diabetic ketoacidoses) 2. Leukocytosis-suspected reactive, no infectious etiology 3. Abdominal pain, nausea, vomiting-secondary to #1. Resolved. - Secondary Discharge Diagnosis Chronic Problems Depression (Chronic) Type 1 diabetes mellitus (Chronic) Hospital Course and Treatment Operations: None Procedures: None Summary of Care Provided: The patient is a 22 year old M admitted 03/16/2018 due to DKA. He has a past medical history of type 1 diabetes mellitus and depression. Patient has had frequent admissions for DKA. He was also noted to be previously suicidal. Patient denies current suicidal ideations. He states he uses insulin as prescribed. Patient initially placed in ICU with insulin drip and IV fluids. He is now stable on home insulin regimen. Patient complained of abdominal pain, nausea, vomiting secondary to DKA. This has resolved. He was noted to have leukocytosis which is suspected to be reactive secondary to DKA. No signs of infectious etiology. Blood culture shows no growth in 48 hours. Patient stable at time of discharge. Will follow up with primary care physician in 1 week and logistics officer in [place] within 1 week as well. Patient seen and examined prior to discharge. Alert, oriented, no acute distress. Denies further nausea, vomiting. Denies suicidal ideations. Heart rate regular rate and rhythm. Lungs clear. Abdomen soft, nontender. Neuro grossly intact. Vital signs stable. Skin intact. Normal affect. This patient was seen by GABE Hinojosa under the supervision of Dr. Burr. Discharge Diet: No Restrictions Discharge Activity: Return to Normal Activity Call your doctor if you observe: Shortness of breath, Dizziness, Fainting spells, Chest pain Home Medications: Medications to take at Discharge Insulin Aspart [Novolog Vial] 10 unit SQ TIDCM #1 vial 02/21/18 Duloxetine Hcl [Cymbalta] 30 mg PO DAILY 03/08/18 [place], Insulin Disposable [Novofine Autocover 30G Needle] 1 each MISCELL. UD 03/16/18 traZODone [Desyrel] 50 mg PO QHS 03/16/18 Insulin Glargine,Hum.rec.anlog [Lantus] 23 unit SQ BID #30 ml 03/18/18 Following Prescrptions Were Given to Patient: Insulin Glargine,Hum.rec.anlog [Lantus] 23 unit SQ BID #30 ml Primary Care Physician: Jose Daniel Malik MD [Primary Care Provider] - Please follow up with your Primary Care Physician in: 1 Week Please Follow Up With: Vocal Teacher in [place] When: Within one week Please Follow Up With: [facility] Diabetic Education [facility] When: Please call for appt Disposition: Home Minutes spent on discharge:: 35 Patient Condition:: Stable Medical Necessity - Tobacco Use Smoking Status: Never smoker Meaningful Use Info Meaningful Use Diagnoses (Choose all that apply): None applicable <Mario Alberto Burr - Last Filed: 03/18/18 12:57> Discharge Date and Diagnosis - Secondary Discharge Diagnosis Chronic Problems Depression (Chronic) Type 1 diabetes mellitus (Chronic) Hospital Course and Treatment Operations: None Procedures: None Summary of Care Provided: Patient seen and examined independently. Data reviewed. I agree with the above note by the nurse practitioner. The patient is a 22 year old M presents with diabetic ketoacidosis. 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 Patient's hospitalization was comp gated by intractable nausea and vomiting overnight. Today, the patient is feeling much better. I did talk to the patient about the possibility of gastroparesis to which he states that he has been told that that may be an issue from previous hospitalizations. But given the patient is doing well he will do home. [] Discharge Diet: No Restrictions Discharge Activity: Return to Normal Activity Call your doctor if you observe: Shortness of breath, Dizziness, Fainting spells, Chest pain Disposition: Home Minutes spent on discharge:: 35 Patient Condition:: Stable Meaningful Use Info Meaningful Use Diagnoses (Choose all that apply): None applicable Code Visit Inpatient E&M: 00383 Disch Hosp
--- NOTE | 2018-03-18 12:01 | DS.PCM_ITS ---
<Jessica Barrera - Last Filed: 03/18/18 12:03> Discharge Date and Diagnosis Date of Admission: 03/16/18 Date of Discharge: 03/18/18 - Primary Discharge Diagnosis Active and Suspected Problems 1. DKA (diabetic ketoacidoses) 2. Leukocytosis-suspected reactive, no infectious etiology 3. Abdominal pain, nausea, vomiting-secondary to #1. Resolved. - Secondary Discharge Diagnosis Chronic Problems Depression (Chronic) Type 1 diabetes mellitus (Chronic) Hospital Course and Treatment Operations: None Procedures: None Summary of Care Provided: The patient is a 22 year old M admitted 03/16/2018 due to DKA. He has a past medical history of type 1 diabetes mellitus and depression. Patient has had frequent admissions for DKA. He was also noted to be previously suicidal. Patient denies current suicidal ideations. He states he uses insulin as prescribed. Patient initially placed in ICU with insulin drip and IV fluids. He is now stable on home insulin regimen. Patient complained of abdominal pain , nausea, vomiting secondary to DKA. This has resolved. He was noted to have leukocytosis which is suspected to be reactive secondary to DKA. No signs of infectious etiology. Blood culture shows no growth in 48 hours. Patient stable at time of discharge. Will follow up with primary care physician in 1 week and cooker mechanic in [place] within 1 week as well. Patient seen and examined prior to discharge. Alert, oriented, no acute distress. Denies further nausea, vomiting. Denies suicidal ideations. Heart rate regular rate and rhythm. Lungs clear. Abdomen soft, nontender. Neuro grossly intact. Vital signs stable. Skin intact. Normal affect. This patient was seen by GABE Hinojosa under the supervision of Dr. Burr. Discharge Diet: No Restrictions Discharge Activity: Return to Normal Activity Call your doctor if you observe: Shortness of breath, Dizziness, Fainting spells , Chest pain Home Medications: Medications to take at Discharge Insulin Aspart [Novolog Vial] 10 unit SQ TIDCM #1 vial 02/21/18 Duloxetine Hcl [Cymbalta] 30 mg PO DAILY 03/08/18 [place], Insulin Disposable [Novofine Autocover 30G Needle] 1 each MISCELL. UD 03/16/18 traZODone [Desyrel] 50 mg PO QHS 03/16/18 Insulin Glargine,Hum.rec.anlog [Lantus] 23 unit SQ BID #30 ml 03/18/18 Following Prescrptions Were Given to Patient: Insulin Glargine,Hum.rec.anlog [Lantus] 23 unit SQ BID #30 ml Primary Care Physician: Jose Daniel Malik MD [Primary Care Provider] - Please follow up with your Primary Care Physician in: 1 Week Please Follow Up With: Demurrage Clerk in [place] When: Within one week Please Follow Up With: [facility] Diabetic Education Program When: Please call for appt Disposition: Home Minutes spent on discharge:: 35 Patient Condition:: Stable Medical Necessity - Tobacco Use Smoking Status: Never smoker Meaningful Use Info Meaningful Use Diagnoses (Choose all that apply): None applicable <Mario Alberto Burr - Last Filed: 03/18/18 12:57> Discharge Date and Diagnosis - Secondary Discharge Diagnosis Chronic Problems Depression (Chronic) Type 1 diabetes mellitus (Chronic) Hospital Course and Treatment Operations: None Procedures: None Summary of Care Provided: Patient seen and examined independently. Data reviewed. I agree with the above note by the nurse practitioner. The patient is a 22 year old M presents with diabetic ketoacidosis. 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 Patient's hospitalization was comp gated by intractable nausea and vomiting overnight. Today, the patient is feeling much better. I did talk to the patient about the possibility of gastroparesis to which he states that he has been told that that may be an issue from previous hospitalizations. But given the patient is doing well he will do home. [] Discharge Diet: No Restrictions Discharge Activity: Return to Normal Activity Call your doctor if you observe: Shortness of breath, Dizziness, Fainting spells , Chest pain Disposition: Home Minutes spent on discharge:: 35 Patient Condition:: Stable Meaningful Use Info Meaningful Use Diagnoses (Choose all that apply): None applicable Code Visit Inpatient E&M: 32365 Disch Hosp
[2018-03-18] MEDS: Insulin Lispro 100 UNIT/ML INSULN.PEN SC (12:10)
[2018-03-18] MEDS: Insulin Lispro 100 UNIT/ML INSULN.PEN 10 UNIT SC (12:11)
== END 2018-03-18 13:16 | disposition home or self-care (01) | DRG 295 ==
LOC: PCU 03-19 08:11 → ICU 03-19 08:11
PROVIDERS: Family Medicine; Admitting Provider Internal Medicine; Family Provider Family Medicine; PCP Family Medicine
DX: E10.10 Type 1 diabetes mellitus with ketoacidosis without coma (principal); F32.9 Major depressive disorder, single episode, unspecified; Z79.4 Long term (current) use of insulin; D72.829 Elevated white blood cell count, unspecified
CPT/HCPCS: 80048; 80076; 80307; 81001; 82962; 83690; 83735; 84100; 84484; 85025; 87040; 87641; J7030; A4216; J2405; J7799

== ENCOUNTER 2018-04-07 05:56 | Inpatient (IN) | payer MEDICAID, SELFPAY ==
[2018-04-07] VITALS (7 sets, daily range): BP systolic 127–148; BP diastolic 69–86; PULSE 107–124; RESP 16–18; TEMP 36.4–36.8; O2SAT 100; BMI 18.9
[2018-04-07 06:06] LABS: Bedside Glucose 369 mg/dL (70-110)
--- NOTE | 2018-04-07 06:32 | HP.PCM_ITS ---
Problem List (1) DKA (diabetic ketoacidoses) Status: Acute (2) Lactic acidosis Status: Acute (3) Depression Status: Chronic (4) Type 1 diabetes mellitus Status: Chronic History of Present Illness Date of Admission: 04/07/18 Chief Complaint: N/V The patient is a 22 year old male w/ h/o DKA and DMI admitted for DKA. Pt had n/ v Saturday AM. He was not able to tolerate solid food but was able to keep liquid down. He also c/o diffuse cramping abdominal pain. Nothing made the pain better or worse. Pain was constant and severe. Pain start suddenly Saturday AM. Pain is similar to past episode of DKA. He was transfer from [place] to [place]. Past Medical History Past Medical History (Chronic Problems): Chronic Problems Depression (Chronic) Type 1 diabetes mellitus (Chronic) Allergies No Known Allergies Allergy (Verified 03/08/18 22:16) Home Medications: Ambulatory Orders Medication Instructions Recorded Insulin Aspart [Novolog Vial] 10 unit SQ TIDCM #1 vial 02/21/18 Duloxetine Hcl [Cymbalta] 60 mg PO DAILY 03/08/18 [place], Insulin Disposable 1 each MISCELL. UD 03/16/18 [Novofine Autocover 30G Needle] traZODone [Desyrel] 50 mg PO QHS 03/16/18 Insulin Glargine,Hum.rec.anlog 23 unit SQ BID #30 ml 03/18/18 [Lantus] Surgical History: no surgical history Psychiatric History: No pertinent psych hx Smoking Status: Never smoker Tobacco Use: Secondhand - *Family History Maternal History Items: No pertinent history Paternal History Items: No pertinent history Review of Systems Constitutional: Denies: Chills, Fever, Weight Change HEENT: Denies: Head Aches, Sinus Congestion, Sinus Drainage Cardiovascular: Denies: Chest Pain, Palpitations Respiratory: Denies: Cough, Shortness of breath at rest, Sputum production Gastrointestinal: Reports: Abdominal Pain, Nausea, Vomiting Genitourinary: Denies: Dysuria Musculoskeletal: Denies: Joint Pain, Joint Tenderness Skin: Denies: Rash, Wounds Neurological: Denies: Numbness, Tingling, Focal weakness Psychiatric: Denies: Anxiety, Depression, Homicidal Ideations, Suicidal Ideations Hematologic/ Lymphatic: Denies: Easy Bruising, Easy Bleeding VTE Information - Inpt Only VTE Present on Admission: No VTE Mechan Device Prophylaxis: SCD's VTE Pharm Prophylaxis ordered?: Yes - Physical Exam General: Alert, Oriented x3, Cooperative HEENT: Atraumatic, PERRLA, EOMI, Normocephalic Neck: Supple, No JVD, Negative Carotid Bruits Lungs: Clear to auscultation, Normal air movement Cardiovascular: Regular rate, No murmurs Abdomen: Bowel Sounds Present, Soft, Non Tender Extremities: No edema, Capillary Refill Less than 3 Seconds Skin: No rashes, No breakdown Musculoskeletal: No Tenderness to Palpation of Joints or Extremities Neurological: Cranial nerves II-XII grossly intact Psych/Mental Status: Normal Affect, Appropriate Weight: 58.151 kg Body Mass Index (BMI) 18.9 Finger Stick Blood Glucose 190 POC Glucose 04/07/18 06:02 POC Glucose 369 H Assessment/Plan All Active Problems DKA (diabetic ketoacidoses) (Acute) Lactic acidosis (Acute) DKA (diabetic ketoacidoses) (Acute) 22 year old male w/ h/o DKA and DMI admitted for DKA. 1) DKA: Ketones noted. Anion gap 29. Glucose 300s noted. Multiple past admissions for DKA. Gap closed quickly. Expect gap to close quickly as well. Expect noncompliant. Will restart insulin and frequent accucheck. Will also start IV hydration. Will consider transfer to ICU if no improvement. 2) N/V: Probably secondary to DKA. Hydration and insulin. Monitor. 3) Abdominal pain: Similar to past episodes DKA. Treat DKA and if no improvement, will consider workup. Monitor. 4) Prophylaxis: Protonix / SCD / Heparin.
--- NOTE | 2018-04-07 06:45 | RAD_ITS ---
STUDY: X-RAY CHEST REASON FOR EXAM: Male, 22 years old. Shortness of breath. TECHNIQUE: PA and lateral views of the chest. COMPARISON: Comparison is made with prior study dated February 20, 2018. FINDINGS: EKG electrodes are seen. The lungs are clear and expanded. There is no demonstrated pleural abnormality. Normal size heart. Normal mediastinum and prateek. Normal visualized pulmonary arteries. Normal visualized aortic arch and descending thoracic aorta. Normal visualized thoracic spine. Normal visualized ribs, clavicles, and shoulders. There is no demonstrated abnormality of the visualized soft tissue structures of the upper abdomen. RAD/Chest PA and Lateral IMPRESSION: Normal x-ray examination of the chest. Electronically Signed: Edouard Luna MD at 11:32 EDT Tel [phone], Service support ,
[2018-04-07] MEDS: 0.9% Normal Saline 1,000 ML 999 ML IV (07:14)
[2018-04-07] MEDS: Ondansetron 4 MG/2 ML Vial IV (07:15)
[2018-04-07] MEDS: 0.9% NaCl Peripheral Flush Adult/Peds IV ×2 (07:15→08:26)
[2018-04-07] MEDS: Insulin Lispro 100 UNIT/ML INSULN.PEN 10 UNIT SC (07:16)
[2018-04-07 07:55] LABS: Osmolality, Serum 309 mOsm/KG (275-295)
[2018-04-07] MEDS: 0.9% Normal Saline 1,000 ML 500 ML IV (08:07)
[2018-04-07 08:13] LABS: AST(SGOT) 17 U/L (15-37); Alanine Aminotransfer ALT/SGPT 28 U/L (16-61); Albumin, Serum 4.2 g/dL (3.2-5.0); Alkaline Phosphatase 118 U/L (45-117); Anion Gap 20 (5-15); BUN 16 mg/dL (7-18); BUN/Creat Ratio 14.7 RATIO (10-20); Bilirubin, Direct 0.23 mg/dL (0.00-0.30); Calcium,Total 8.3 mg/dL (8.5-10.1); Chloride 105 mmol/L (98-107); Creatinine, Serum 1.09 mg/dL (0.70-1.30); EST Glomerular Filtration Rate 89 mL/min (>60); Est Glom Filt Rate - Afr Amer 107 mL/min (>60); Estimated Creatinine Clearance 86.69 ml/min; Globulin 3.1 g/dL (2.2-4.2); Glucose 312 mg/dL (74-106); Magnesium 1.8 mg/dL (1.6-2.6); Potassium 4.3 mmol/L (3.5-5.1); Protein, Total 7.3 g/dL (6.4-8.2); Sodium Level 139 mmol/L (136-145)
[2018-04-07] MEDS: Metoclopramide 10 MG/2 ML Vial IV (08:26)
[2018-04-07 08:44] LABS: Hemoglobin A1c 8.3 % (4.2-6.3)
[2018-04-07] MEDS: 0.9% Normal Saline 1,000 ML 325 ML IV (10:08)
[2018-04-07] MEDS: Ketorolac 15 MG/ML Vial IV (10:08)
[2018-04-07 10:21] LABS: Bedside Glucose 160 mg/dL (70-110)
[2018-04-07 10:31] LABS: Bacteria 0 SEEN /hpf (None Seen); Mucous, Urine 0 SEEN /hpf (<or=2+); Red Blood Cells-Urine 0 SEEN /hpf (0-5); White Blood Cells 0 SEEN /hpf (0-5)
[2018-04-07 10:44] LABS: Anion Gap 12 (5-15); BUN 13 mg/dL (7-18); BUN/Creat Ratio 14.7 RATIO (10-20); Calcium,Total 7.7 mg/dL (8.5-10.1); Chloride 111 mmol/L (98-107); Creatinine, Serum 0.89 mg/dL (0.70-1.30); EST Glomerular Filtration Rate 113 mL/min (>60); Est Glom Filt Rate - Afr Amer 136 mL/min (>60); Estimated Creatinine Clearance 106.17 ml/min; Glucose 169 mg/dL (74-106); Sodium Level 141 mmol/L (136-145)
[2018-04-07 10:54] LABS: Color, Urine Yellow (Yellow); Glucose, Dipstick 1000 mg/dl (Normal); Leukocyte Esterase-Dipstick Negative /ul (Negative); Nitrite-Dipstick Negative (Negative); Occult Blood-Urine 10 /ul (Negative); Protein-Dipstick Negative (Negative); Urine Bilirubin Dipstick Negative (Negative); Urine Clarity Clear (Clear); Urine Urobilinogen Normal (Normal)
[2018-04-07 10:58] LABS: Ketone-Dipstick 150 mg/dl (Negative)
[2018-04-07 11:01] LABS: Squamous Epithelial Cells - UA 0-5 SEEN /hpf (0-5)
--- NOTE | 2018-04-07 11:18 | PCM.PN.HOSP ---
Subjective: Patient is a 22-year-old gentleman with history of diabetes mellitus type 1 who presents with nausea vomiting. Patient was transferred from [facility]. His admission assessment was consistent with diabetic ketoacidosis admitted for subsequent management Objective: GENERAL: Patient appears ill looking HEENT: Clear conjunctiva, dry oral mucosa NECK; supple, normal thyroid, CHEST: Clear to auscultation bilaterally, HEART: Regular S1 S2, tachycardiac ABDOMEN: soft, non-tender, normoactive bowel sounds, RECTAL: deferred EXTREMITIES: No edema, no clubbing, no cyanosis. SUPERVISOR CONTACT AND SERVICE CLERKS: Awake; no lateralizing signs. SKIN: No Rash Vitals/I&O's: Vital Signs Temp Pulse Resp BP Pulse Ox 98.2 F 117 H 18 135/86 H 100 04/07/18 06:40 04/07/18 06:40 04/07/18 06:40 04/07/18 06:40 04/07/18 06:40 Oxygen Delivery Method Room Air Weight: 58.151 kg Body Mass Index (BMI) 18.9 Finger Stick Blood Glucose 190 Intake and Output for Last 24 Hours 04/05/18 04/06/18 04/07/18 23:59 23:59 23:59 Output Total 200 / 200 Balance -200 / -200 Laboratory Results 04/07/18 06:02: POC Glucose 369 H 04/07/18 07:10: Hemoglobin A1c 8.3 H 04/07/18 07:10: Sodium 139, Potassium 4.3, Chloride 105, Carbon Dioxide 14.0 L, Anion Gap 20 H, BUN 16, Creatinine 1.09, Estim Creat Clear Calc 86.69, Est GFR (MDRD) Af Amer 107, Est GFR (MDRD) Non-Af 89, BUN/Creatinine Ratio 14.7, Glucose 312 H, Calcium 8.3 L, Magnesium 1.8, Total Bilirubin 0.90, Direct Bilirubin 0.23, AST 17, ALT 28, Alkaline Phosphatase 118 H, Total Protein 7.3, Albumin 4.2, Globulin 3.1 04/07/18 07:10: Serum Osmolality 309 H 04/07/18 07:10: Troponin I < 0.015 04/07/18 10:03: Sodium 141, Potassium 4.0, Chloride 111 H, Carbon Dioxide 18.0 L, Anion Gap 12, BUN 13, Creatinine 0.89, Estim Creat Clear Calc 106.17, Est GFR (MDRD) Af Amer 136, Est GFR (MDRD) Non-Af 113, BUN/Creatinine Ratio 14.7, Glucose 169 H, Calcium 7.7 L, Troponin I < 0.015 04/07/18 10:07: POC Glucose 160 H 04/07/18 10:20: Urine Color Yellow, Urine Clarity Clear, Urine pH 5.0, Ur Specific [place] 1.020, Urine Protein Negative, Urine Glucose (UA) 1000 H, Urine Ketones 150 H, Urine Occult Blood 10 H, Urine Nitrite Negative, Urine Bilirubin Negative, Urine Urobilinogen Normal, Ur Leukocyte Esterase Negative, Urine RBC 0 SEEN, Urine WBC 0 SEEN, Ur Squamous Epith Cells 0-5 SEEN, Urine Bacteria 0 SEEN, Urine Mucus 0 SEEN Current Medications Acetaminophen (Tylenol) 650 mg RECTAL Q6H PRN PRN PRN Reason: PAIN Dextrose (D50w Syringe) 0 gm IV X1 PRN; Protocol PRN Reason: AGITATION Dextrose (D50w Syringe) 0 gm IV X1 PRN; Protocol PRN Reason: Hypoglycemia Duloxetine HCl (Cymbalta) 60 mg PO DAILY ON LICENSE OF [facility] Glucagon () 1 mg IM .X1 PRN PRN Reason: Hypoglycemia Heparin Sodium (Porcine) (Heparin Na) 5,000 unit SC Q8 KRISTINE Sodium Chloride () 1,000 mls @ 125 mls/hr IV .Q8H KRISTINE Pantoprazole Sodium 40 mg/ (Sodium Chloride) 110 mls @ 330 mls/hr IV Q24 ON LICENSE OF [facility] Last Admin: 04/07/18 10:09 Dose: 330 mls/hr Insulin Glargine (Lantus (Bkc)) 23 units SC BID ON LICENSE OF [facility] Last Admin: 04/07/18 10:02 Dose: Not Given Insulin Human Lispro (Humalog Kwikpen (Bk)) 10 unit SC 0800,1200,1700 ON LICENSE OF [facility] PRN Reason: Protocol Last Admin: 04/07/18 07:16 Dose: 10 units Metoclopramide HCl (Reglan) 10 mg IV Q4H PRN PRN PRN Reason: NAUSEA Last Admin: 04/07/18 08:26 Dose: 10 mg Naproxen (Naprosyn) 375 mg PO BID PRN PRN PRN Reason: MILD PAIN (1-3/10) Nutritional Formula (Lactose Free) (Glucerna Shake) 120 ml PO 4X/DAY ON LICENSE OF [facility] Last Admin: 04/07/18 11:08 Dose: Not Given Ondansetron HCl (Zofran) 4 mg IV Q6H PRN PRN PRN Reason: NAUSEA Last Admin: 04/07/18 07:15 Dose: 4 mg Sodium Chloride () 5 - 30 ml IV UD PRN PRN Reason: SALINE FLUSH Last Admin: 04/07/18 08:26 Dose: 10 ml Trazodone HCl (Desyrel) 50 mg PO QHS ON LICENSE OF [facility] Medical Necessity - Tobacco Use Smoking Status: Never smoker Tobacco Use: Secondhand Assessment/Plan All Active Problems DKA (diabetic ketoacidoses) (Acute) Lactic acidosis (Acute) DKA (diabetic ketoacidoses) (Acute) Is a 22-year-old gentleman with history of diabetes mellitus type 1 presented with nausea vomiting. An assessment of diabetic ketoacidosis made admitted for subsequent management 1. Diabetic ketoacidosis: Patient has been admitted to monitored bed managed with aggressive IV fluid resuscitation systemic insulin and correction of electrolyte abnormalities. 2. Intractable nausea vomiting possibly secondary to suspected underlying gastroparesis patient is on Reglan for symptomatic control please on PPI 3. Abdominal pain suspected to be secondary to #2 management as discussed above 4. DVT prophylaxis SC heparin Total critical care time spent on patient 45 minutes Code Visit Procedures: 00543 Critial Care 1st Hr
--- NOTE | 2018-04-07 11:43 | CASEMGMT ---
EMORY ARRIETA Readmit note. 03/16/18-03/18/18. Treatment for DKA. Pt had SW referral as he had recently been to [facility]. Treatment for DKA, insulin gtt. Was dc'd home. To f/u with PCP on discharge. PCP lives in [place]. -Intro role of CM to patient. He is withdrawn, not feeling well. States he has not followed up with PCP since last admission. States he has transportation but would not elaborate on who was driving. Pt also stated he has supplies for diabetes management. 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 Pt has in past visits stated he f/u with his plant production worker however this cannot be verified without name. EMORY ARRIETA called to [facility] Condon's office-they have not seen pt. -DC PLAN: Home on dc with physician f/u to Dr. Malik in [place]. Nick ALVES RN ACM
[2018-04-07] MEDS: DULoxetine Hcl 30 MG Capsule 60 MG PO (12:06)
[2018-04-07 12:16] LABS: Bedside Glucose 155 mg/dL (70-110)
--- NOTE | 2018-04-07 12:29 | NURSING ---
pt notified of diet change- however, refuses to eat at this time due to stomach pain. BGT 155- no insulin given at this time due to patient refusal to eat. Will continue to monitor.
[2018-04-07] MEDS: 0.9% Normal Saline 1,000 ML 250 ML IV (13:09)
[2018-04-07] MEDS: Glucerna Shake 120 ML LIQUID PO ×3 (13:16→21:49)
[2018-04-07 14:53] LABS: Anion Gap 13 (5-15); BUN 11 mg/dL (7-18); BUN/Creat Ratio 14.3 RATIO (10-20); Calcium,Total 7.3 mg/dL (8.5-10.1); Chloride 107 mmol/L (98-107); Creatinine, Serum 0.77 mg/dL (0.70-1.30); EST Glomerular Filtration Rate 133 mL/min (>60); Est Glom Filt Rate - Afr Amer 161 mL/min (>60); Estimated Creatinine Clearance 122.72 ml/min; Glucose 202 mg/dL (74-106); Potassium 3.8 mmol/L (3.5-5.1); Sodium Level 138 mmol/L (136-145)
[2018-04-07] MEDS: Insulin Lispro 100 UNIT/ML INSULN.PEN SQ ×2 (15:59→21:47)
[2018-04-07 16:06] LABS: Bedside Glucose 185 mg/dL (70-110)
[2018-04-07] MEDS: 0.9% Normal Saline 1,000 ML 125 ML IV (17:24)
[2018-04-07 19:22] LABS: Anion Gap 10 (5-15); BUN 8 mg/dL (7-18); BUN/Creat Ratio 12.1 RATIO (10-20); Calcium,Total 7.5 mg/dL (8.5-10.1); Chloride 107 mmol/L (98-107); Creatinine, Serum 0.66 mg/dL (0.70-1.30); EST Glomerular Filtration Rate 158 mL/min (>60); Est Glom Filt Rate - Afr Amer 191 mL/min (>60); Estimated Creatinine Clearance 143.17 ml/min; Glucose 183 mg/dL (74-106); Potassium 3.6 mmol/L (3.5-5.1); Sodium Level 137 mmol/L (136-145)
[2018-04-07] MEDS: traZODone 50 MG Tablet PO (21:46)
[2018-04-07 21:56] LABS: Bedside Glucose 171 mg/dL (70-110)
[2018-04-07 23:26] LABS: Anion Gap 10 (5-15); BUN 6 mg/dL (7-18); BUN/Creat Ratio 8.3 RATIO (10-20); Calcium,Total 7.3 mg/dL (8.5-10.1); Chloride 106 mmol/L (98-107); Creatinine, Serum 0.72 mg/dL (0.70-1.30); EST Glomerular Filtration Rate 143 mL/min (>60); Est Glom Filt Rate - Afr Amer 173 mL/min (>60); Estimated Creatinine Clearance 131.24 ml/min; Glucose 161 mg/dL (74-106); Potassium 3.3 mmol/L (3.5-5.1); Sodium Level 138 mmol/L (136-145)
[2018-04-08] VITALS (7 sets, daily range): BP systolic 129–130; BP diastolic 73–80; PULSE 98–117; RESP 16; TEMP 36.8–36.9; O2SAT 100
[2018-04-08] MEDS: 0.9% Normal Saline 1,000 ML 125 ML IV ×2 (01:27→09:11)
[2018-04-08 02:52] LABS: Absolute Lymphocyte Count 1.99 X10^3/ul (0.83-4.51); Basophil# 0.02 X10^3/uL; Basophil% 0.1 % (0-1); Eosinophil# 0.06 X10^3/uL; Eosinophils% 0.4 % (0-5); Hematocrit 35.9 % (40-54); Lymphocyte # 1.99 X10^3/ul (4.0); Lymphocyte % 12.4 % (19-41); Mean Platelet Vol. 8.9 fl (6.2-12.0); Monocyte# 1.01 X10^3/uL; Monocyte% 6.3 % (0-10); Neutrophil # 12.95 X10^3/uL (2.7-7.7); Neutrophil % 80.6 % (47-70); Platelet Count 215 K/mm3 (150-450); RBC Distribution Width CV 11.8 % (11.6-14.6); RBC Distribution Width SD 38.4 fl (35.1-43.9); Red Blood Count 3.99 M/mm3 (4.6-6.2); White Blood Count 16.1 K/mm3 (4.4-11.0)
[2018-04-08 02:56] LABS: Anion Gap 7 (5-15); BUN 5 mg/dL (7-18); BUN/Creat Ratio 7.7 RATIO (10-20); Calcium,Total 7.6 mg/dL (8.5-10.1); Chloride 109 mmol/L (98-107); Creatinine, Serum 0.65 mg/dL (0.70-1.30); EST Glomerular Filtration Rate 162 mL/min (>60); Est Glom Filt Rate - Afr Amer 196 mL/min (>60); Estimated Creatinine Clearance 145.38 ml/min; Glucose 132 mg/dL (74-106); Potassium 3.3 mmol/L (3.5-5.1); Sodium Level 140 mmol/L (136-145)
[2018-04-08 03:08] LABS: Hemoglobin 13.4 g/dl (13.0-16.5); Mean Corp Hgb Conc 35.8 g/gl (32-36); Mean Corpuscular Hgb 32.8 pg (27.0-32.0); POSITIVE COUNT NO; POSITIVE DIFFERENTIAL NO; POSITIVE MORPHOLOGY NO
[2018-04-08 07:47] LABS: Anion Gap 9 (5-15); BUN 3 mg/dL (7-18); BUN/Creat Ratio 5.5 RATIO (10-20); Calcium,Total 7.5 mg/dL (8.5-10.1); Chloride 110 mmol/L (98-107); Creatinine, Serum 0.54 mg/dL (0.70-1.30); EST Glomerular Filtration Rate 199 mL/min (>60); Est Glom Filt Rate - Afr Amer 241 mL/min (>60); Estimated Creatinine Clearance 174.99 ml/min; Glucose 44 mg/dL (74-106); Sodium Level 142 mmol/L (136-145)
--- NOTE | 2018-04-08 08:24 | DCINST_ITS ---
You will use the following diet at home:: Calorie/Carbohydrate Controlled ( specify 1200, 1400, etc) - 1800 Your food should be the consistency of: Regular Discharge Activity: Return to Normal Activity Allergies/Adverse Reactions: Allergies No Known Allergies Allergy (Verified 03/08/18 22:16) Medications to take at Discharge Insulin Aspart [Novolog Vial] 10 unit SQ TIDCM #1 vial 02/21/18 Duloxetine Hcl [Cymbalta] 60 mg PO DAILY 03/08/18 [place], Insulin Disposable [Novofine Autocover 30G Needle] 1 each MISCELL. UD 03/16/18 traZODone [Desyrel] 50 mg PO QHS 03/16/18 Insulin Glargine,Hum.rec.anlog [Lantus] 23 unit SQ BID #30 ml 03/18/18 Primary Care Physician: Jose Daniel Malik MD [Primary Care Provider] - Please follow up with your Primary Care Physician in: in 3-5 days Test Results: Test results from this visit will be discussed in further detail at your follow- up appointment, if applicable. Proposed Discharge Date: 04/08/18
--- NOTE | 2018-04-08 08:24 | PCM.DC.SUM ---
Discharge Date and Diagnosis Date of Admission: 04/07/18 Date of Discharge: 04/08/18 - Primary Discharge Diagnosis DKA Type I - Secondary Discharge Diagnosis Chronic Problems Depression (Chronic) Type 1 diabetes mellitus (Chronic) Hospital Course and Treatment Operations: None Summary of Care Provided: Patient Is a 22-year-old gentleman with history of diabetes mellitus type 1 presented with nausea vomiting. An assessment of diabetic ketoacidosis made admitted for subsequent management 1. Diabetic ketoacidosis: Patient has been admitted to monitored bed managed with aggressive IV fluid resuscitation systemic insulin and correction of electrolyte abnormalities. 2. Intractable nausea vomiting possibly secondary to suspected underlying gastroparesis patient is on Reglan for symptomatic control placed on PPI 3. Abdominal pain suspected to be secondary to #2 management as discussed above 4. DVT prophylaxis SC heparin Discharge Activity: Return to Normal Activity Home Medications: Medications to take at Discharge Insulin Aspart [Novolog Vial] 10 unit SQ TIDCM #1 vial 02/21/18 Duloxetine Hcl [Cymbalta] 60 mg PO DAILY 03/08/18 [place], Insulin Disposable [Novofine Autocover 30G Needle] 1 each MISCELL. UD 03/16/18 traZODone [Desyrel] 50 mg PO QHS 03/16/18 Insulin Glargine,Hum.rec.anlog [Lantus] 23 unit SQ BID #30 ml 03/18/18 Primary Care Physician: Jose Daniel Malik MD [Primary Care Provider] - Please follow up with your Primary Care Physician in: in 3-5 days Disposition: Home Minutes spent on discharge:: 35 Patient Condition:: Stable Medical Necessity - Tobacco Use Smoking Status: Never smoker Tobacco Use: Secondhand Meaningful Use Info Meaningful Use Diagnoses (Choose all that apply): None applicable Code Visit Inpatient E&M: 56338 Disch Hosp
[2018-04-08 08:36] LABS: Bedside Glucose 61 mg/dL (70-110)
[2018-04-08 08:36] LABS: Bedside Glucose 37 mg/dL (70-110)
[2018-04-08 08:36] LABS: Bedside Glucose 76 mg/dL (70-110)
[2018-04-08] MEDS: DULoxetine Hcl 30 MG Capsule 60 MG PO (09:11)
--- NOTE | 2018-04-08 09:38 | CASEMGMT ---
Social Work Note SW met with pt as pt is a readmission and has a history of depression. SW introduced self and role at [facility]. Pt is alert and orientated x4. Pt states that he lives with his brother who is 28 years old and has a good relationship with him. Pt states that he also has a good relationship with his mother Coco who lives in [place]. Pt states that he feels supportive at home. Pt states that he was previously independent with ADLs. Client denied any substance abuse hx. Pt states that he has a history of depression and anxiety. Pt currently denies any depression symptoms and denies suicidal thoughts/plans/ideations. Pt states that he currently receives counseling services in [place] but was unsure of the name of the agency. Pt states that he see's an individual counselor about once every two weeks and his next appointment is scheduled for next week. Pt states that his plan is to return home at discharge and denies additional needs or concerns at this time. Pt denied behavioral health referral. Plan: Pt to return home at discharge and continue to utilize counseling services Agueda Whitten LIGHT RAIL OPERATOR, GILL BOX OPERATOR
[2018-04-08] MEDS: Pantoprazole Sodium 40 MG Tablet PO (11:03)
[2018-04-08] MEDS: Insulin Lispro 100 UNIT/ML INSULN.PEN SQ (11:40)
[2018-04-08] MEDS: Insulin Lispro 100 UNIT/ML INSULN.PEN 10 UNIT SC (11:40)
[2018-04-08 11:46] LABS: Bedside Glucose 222 mg/dL (70-110)
== END 2018-04-08 14:14 | disposition home or self-care (01) | DRG 295 ==
PROVIDERS: Admitting Provider Internal Medicine; Family Provider Family Medicine; PCP Family Medicine; Visit Provider Internal Medicine
DX: E10.10 Type 1 diabetes mellitus with ketoacidosis without coma (principal); F32.9 Major depressive disorder, single episode, unspecified; E10.43 Type 1 diabetes mellitus with diabetic autonomic (poly)neuropathy; K31.84 Gastroparesis; Z79.4 Long term (current) use of insulin
CPT/HCPCS: 36415; 71046; 80048; 80076; 81001; 82962; 83036; 83735; 83930; 84484; 85025; 97802; J7030; A4216; J2405

== ENCOUNTER 2018-04-10 00:25 | Inpatient (IN) | payer MEDICAID, SELFPAY ==
[2018-04-10] VITALS (35 sets, daily range): BP systolic 83–159; BP diastolic 36–88; PULSE 99–140; RESP 11–17; TEMP 36.4–37.4; O2SAT 95–100; BMI 20.2; BMI 19.7
--- NOTE | 2018-04-10 | GASB_PTH ---
PATIENT: MAYLIN KRISHNA LOC: MS2 U#:[id number] AGE/SX: 22/M ROOM: [id number] RE04/10/[address]: Dr. Moises Paredes MD : 1995 BED: 1 DIS: 04/12/2018 SPEC #: [id number] RECD: 04/11/18 14:35 STATUS: JULIEN REQ #: [id number] [place]: 04/10/18 00:[address]: Alma Rosa Sinclair DEPT: SURGICAL PATHOLOGY RECD BY: Ravi Gallagher ENTERED: 04/11/18 14:36 SP TYPE: Gastric Bx OTHR DR: DO Dr. Moose Ram MD Dr. Joseph Agyepong, MD Dr. Joseph Blackburn, MD Dr. Tamera Robotham, MD Tissues: A - Gastric mucous membrane B - Esophageal mucous membrane Procedures: Special Stain Group II Special Stain Group I Surgery Specimen Level IV GMS Stain (control) Alcian Blue/PAS (control) Comments: @ Ordering doctor for SUIV edited from to @ by RGOOD at 04/11/18 1519 @ Submitting doctor edited from to @ by RGOOD at 04/11/18 1519 HEADER OPERATION: EGD PRE-OP DIAGNOSIS: Thickening of esophagus on CT; epigastric pain TISSUE SUBMITTED: A ? Antral biopsy for H. pylori and path, B ? Distal esophagus biopsy MICROSCOPIC DIAGNOSIS A. Antral biopsy for H. pylori and path: Mild gastritis. B. Distal esophagus, biopsy: Fragments of gastroesophageal mucosa with acute and chronic inflammation. Detached fragments of fibrinopurulent exudate consistent with ulceration. Intestinal metaplasia (goblet cell metaplasia) is not identified. Special stain for fungi is negative for organisms; matched control is appropriate. See comment. SJ:bethany 04/14/18 COMMENT A. The results of immunohistochemistry for Helicobacter pylori will be reported separately ([id number]). B. Alcian blue/PAS stain with matched control is used in the evaluation of the specimen. MICROSCOPIC DESCRIPTION Slides are reviewed. A. The specimen shows fragments of gastric mucosa with chronic inflammatory cell infiltrates in the lamina propria consisting of lymphocytes and plasma cells, consistent with mild chronic gastritis. GROSS DESCRIPTION A - Received in fixative is one container labeled with the patient's name and designated antral biopsy. The specimen consists of two irregular fragments of esteban soft tissue that in aggregate measure 0.5 x 0.2 x 0.1 cm. The specimen is totally submitted in one cassette. B - Received in fixative is one container labeled with the patient's name and designated distal esophageal biopsy. The specimen consists of multiple irregular fragments of light esteban soft tissue that in aggregate measure 1.5 x 0.2 x 0.1 cm. The specimen is totally submitted in one cassette. / KIERSTEN:bethany 04/11/18 TC:2 CPT: 19682 x2, 06289, 97546
--- NOTE | 2018-04-10 | IMM_PTH ---
PATIENT: MAYLIN KRISHNA LOC: MS2 U#:[id number] AGE/SX: 22/M ROOM: [facility] [id number] RE04/10/[address]: Dr. Moises Paredes MD : 1995 BED: 1 DIS: 04/12/2018 SPEC #: [id number] RECD: 04/15/18 10:03 STATUS: JULIEN REQ #: [id number] [place]: 04/10/18 00:[address]: Alma Rosa Sinclair DEPT: IMMUNOHISTOCHEMISTRY RECD BY: Zeenat Valenzuela ENTERED: 04/15/18 10:04 SP TYPE: IMMUNO OTHR DR: DO Dr. Moises Ram MD Dr. Joseph Agyepong, MD Dr. Joseph Blackburn, MD Tissues: Stomach, NOS Procedures: H Pylori (initial) Comments: @ Ordering doctor for H.PYLORI edited from to @ by BRY at 04/15/18 1004 @ Submitting doctor edited from to @ by RGOOD at 04/15/18 1004 PHYSICIAN & INSTITUTION [place] [id number] SPECIMEN INFORMATION: Tissue Source: A ? Antral biopsy Clinical Info: Thickening of esophagus on CT; epigastric pain Specimen Number: [id number] CPT code: 21396 METHODOLOGY: Deparaffinized sections of prefer/formalin-fixed tissue or PAP/DQ stained slides are incubated with monoclonal/polyclonal antibodies/oligonucleotide probes. Localization is made via biotin free immunoperoxidase method. Appropriate controls are performed and reacted as expected. Results on target cell population are indicated in the following table: RESULTS: ANTIBODY / CLONE RESULT Block A H Pylori (polyclonal) negative These tests were developed and their performance characteristics determined by [facility]. They may not have been cleared or approved by the U.S. Food and Drug Administration. The FDA has determined that such clearance or approval is not necessary. INTERPRETATION: A. Antral biopsy: Negative for Helicobacter pylori organisms. KIERSTEN:bethany 04/15/18
[2018-04-10] MEDS: Ondansetron 4 MG/2 ML Vial IV ×4 (01:05→18:05)
[2018-04-10] MEDS: 0.9% Normal Saline 1,000 ML 1000 ML IV (01:06)
[2018-04-10] MEDS: Morphine 4 MG/ML Syringe IV (01:06)
[2018-04-10 01:11] LABS: Bedside Glucose > 500 mg/dL (70-110)
[2018-04-10 01:15] LABS: Blood Gas Specimen Type VEN; O2 Delivery Device Room Air; SITE OTHER; Time Given 105; VBG BASE EXCESS -14 mmol/L (-1.0-3.5); VBG Bicarbonate 12 mmol/L (22-26); VBG Oxygen Content 12 mmol/L (23-33); VBG PO2 44 mmHg (25-40); VBG SO2 77 % (50-70); VBG pCO2 23.3 mmHg (41-51); VBG pH 7.31 (7.32-7.42)
[2018-04-10 01:28] LABS: Absolute Lymphocyte Count 1.07 X10^3/ul (0.83-4.51); Absolute Neutrophil Count 11.4 X10^3/uL (2.0-7.7); Basophil# 0.07 X10^3/uL; Basophil% 0.5 % (0-1); Eosinophil# 0.01 X10^3/uL; Eosinophils% 0.1 % (0-5); Hematocrit 44.1 % (40-54); Hemoglobin 16.1 g/dl (13.0-16.5); Lymphocyte # 1.07 X10^3/ul (4.0); Lymphocyte % 8.3 % (19-41); Mean Corp Hgb Conc 36.5 g/gl (32-36); Mean Corpuscular Hgb 33.7 pg (27.0-32.0); Mean Corpuscular Volume 92.3 fL (80-94); Mean Platelet Vol. 10.2 fl (6.2-12.0); Monocyte# 0.42 X10^3/uL; Monocyte% 3.2 % (0-10); Neutrophil # 11.35 X10^3/uL (2.7-7.7); Neutrophil % 87.7 % (47-70); Platelet Count 278 K/mm3 (150-450); RBC Distribution Width CV 12.6 % (11.6-14.6); RBC Distribution Width SD 42.4 fl (35.1-43.9); Red Blood Count 4.78 M/mm3 (4.6-6.2); White Blood Count 12.9 K/mm3 (4.4-11.0)
[2018-04-10 01:29] LABS: POSITIVE COUNT NO; POSITIVE DIFFERENTIAL NO; POSITIVE MORPHOLOGY NO
[2018-04-10] MEDS: 0.9% Normal Saline 1,000 ML 999 ML IV ×2 (01:38→03:26)
[2018-04-10 01:42] LABS: ALB/GLOB Ratio 1.3 RATIO (0.9-2.4); AST(SGOT) 15 U/L (15-37); Alanine Aminotransfer ALT/SGPT 22 U/L (16-61); Albumin, Serum 4.1 g/dL (3.2-5.0); Alkaline Phosphatase 118 U/L (45-117); Anion Gap 25 (5-15); BUN 15 mg/dL (7-18); Calcium,Total 9.3 mg/dL (8.5-10.1); Chloride 93 mmol/L (98-107); Creatinine, Serum 1.15 mg/dL (0.70-1.30); EST Glomerular Filtration Rate 83 mL/min (>60); Est Glom Filt Rate - Afr Amer 101 mL/min (>60); Estimated Creatinine Clearance 87.81 ml/min; Globulin 3.2 g/dL (2.2-4.2); Glucose 553 mg/dL (74-106); Lipase 34 U/L (73-393); Potassium 4.4 mmol/L (3.5-5.1); Protein, Total 7.3 g/dL (6.4-8.2); Sodium Level 131 mmol/L (136-145)
--- NOTE | 2018-04-10 01:47 | CT_ITS ---
STUDY: CT ABDOMEN AND PELVIS WITH CONTRAST REASON FOR EXAM: Male, 22 years old. Upper abdominal pain RADIATION DOSAGE (If Supplied By Facility): CTDIvol = ( 6.71 ) mGy, DLP = ( 329.54 ) mGycm TECHNIQUE: Transaxial images were obtained from the dome of the diaphragm to the symphysis pubis without oral contrast. 100 ml of Isovue 300 contrast was administered. Sagittal and coronal images were reconstructed. Individualized dose optimization techniques were used for this CT. COMPARISON: None. FINDINGS: There is moderate thickening of the hood of the lower esophagus suggesting esophagitis. The visualized portions of the heart are within normal limits. Normal liver. Normal gallbladder and extrahepatic biliary system. Normal spleen. Normal pancreas. Normal bilateral adrenal glands. Normal right kidney. Normal left kidney. Normal visualized stomach. Normal small intestine. Normal colon. The appendix is visualized and appears normal. Normal abdominal aorta. Normal inferior vena cava. Normal retroperitoneum. Normal urinary bladder. Normal abdominal wall. Normal osseous structures. CT/Abdomen/Pelvis W IV Cont ONLY IMPRESSION: There is moderate thickening of the hood of the lower esophagus suggesting esophagitis. Electronically Signed: Fito Soriano MD at 2:45 EDT Tel , Service support ,
[2018-04-10] MEDS: fentaNYL 100 MCG/2 ML Ampul 50 MCG IV (02:17)
[2018-04-10 02:31] LABS: Bedside Glucose > 500 mg/dL (70-110)
--- NOTE | 2018-04-10 03:18 | HP.PCM_ITS ---
Problem List (1) DKA (diabetic ketoacidoses) Status: Acute (2) Depression Status: Chronic (3) Type 1 diabetes mellitus Status: Chronic (4) Esophagitis Status: Acute History of Present Illness Date of Admission: 04/10/18 Chief Complaint: Abdominal pain. The patient is a 22 year old M with a significant history of diabetes mellitus type 1, hospitalized for frequent DKA's; and depression who presented to the emergency department because of excruciating generalized abdominal pain that started on the night before his admission. Associated with symptoms this nausea and multiple vomiting. Emergency department hematemesis was noted. His laboratory findings showed severely elevated glucose, and elevated acetone level. Insulin drip and IV normal saline was started for DKA. Aside from this abdominal pain that started today patient reports of abdominal pain spanning months to years. Coupled with this abdominal pain and hematemesis a CT scan of his abdomen and pelvis was done. CT scan of his abdomen showed esophagitis. And patient was started on a Protonix drip. Associated with the symptoms is polydipsia and anorexia. He denies polyuria. Past Medical History Past Medical History (Chronic Problems): Chronic Problems Depression (Chronic) Type 1 diabetes mellitus (Chronic) Allergies No Known Allergies Allergy (Verified 04/10/18 00:30) Home Medications: Ambulatory Orders Medication Instructions Recorded Insulin Aspart [Novolog Vial] 10 unit SQ TIDCM #1 vial 02/21/18 Duloxetine Hcl [Cymbalta] 60 mg PO DAILY 03/08/18 [place], Insulin Disposable 1 each MISCELL. UD 03/16/18 [Novofine Autocover 30G Needle] traZODone [Desyrel] 50 mg PO QHS 03/16/18 Insulin Glargine,Hum.rec.anlog 23 unit SQ BID #30 ml 03/18/18 [Lantus] Surgical History: no surgical history Psychiatric History: Depression Smoking Status: Never smoker Tobacco Use: Non-smoker Alcohol: None - *Family History Maternal History Items: No pertinent history Paternal History Items: No pertinent history Review of Systems Constitutional: Denies: Chills, Fever, Weight Change Eyes: Denies: Blurred vision, Pain HEENT: Denies: Head Aches, Sinus Congestion, Sinus Drainage Cardiovascular: Denies: Chest Pain, Palpitations Respiratory: Denies: Cough, Shortness of breath at rest, Sputum production Gastrointestinal: Reports: Abdominal Pain, Nausea, Vomiting Genitourinary: Denies: Dysuria Musculoskeletal: Denies: Joint Pain, Joint Tenderness Skin: Denies: Rash, Wounds Neurological: Denies: Numbness, Tingling, Focal weakness Psychiatric: Reports: Depression Hematologic/ Lymphatic: Denies: Easy Bruising, Easy Bleeding VTE Information - Inpt Only VTE Present on Admission: No VTE Mechan Device Prophylaxis: None VTE Pharm Prophylaxis ordered?: No Reason prophylaxis not ordered:: Medical Contraindication Patient Problems: Active and Suspected Problems Esophagitis (Acute) Objective: Patient bent over in bed secondary to pain. - Physical Exam General: Alert, Oriented x3, Cooperative HEENT: Atraumatic, PERRLA, EOMI, Normocephalic Neck: Supple, No JVD, Negative Carotid Bruits Lungs: Clear to auscultation, Normal air movement Cardiovascular: Tachycardic Abdomen: Hernia Extremities: No edema, Capillary Refill Less than 3 Seconds Skin: No rashes, No breakdown Musculoskeletal: No Tenderness to Palpation of Joints or Extremities Neurological: Cranial nerves II-XII grossly intact Psych/Mental Status: Normal Affect, Appropriate Vital Signs Temp Pulse Resp BP Pulse Ox 99.0 F 120 H 15 103/37 L 100 04/10/18 00:26 04/10/18 02:39 04/10/18 02:39 04/10/18 02:39 04/10/18 02:39 Oxygen Delivery Method Room Air Weight: 62.142 kg Body Mass Index (BMI) 20.2 Finger Stick Blood Glucose 557 Laboratory Tests Past 24 Hrs 04/10/18 04/10/18 04/10/18 01:05 01:05 01:05 WBC 12.9 H RBC 4.78 Hgb 16.1 Hct 44.1 MCV 92.3 MCH 33.7 H MCHC 36.5 H RDW 12.6 RDW Differential 42.4 Plt Count 278 MPV 10.2 Immature Gran % (Auto) 0.200 Neut % (Auto) 87.7 H Lymph % (Auto) 8.3 L Dick[place] % (Auto) 3.2 Eos % (Auto) 0.1 Baso % (Auto) 0.5 Absolute Neuts (auto) 11.4 H Absolute Lymphs (auto) 1.07 Total Counted Not Reportable Specimen Type Sample Site VBG pH VBG pO2 VBG O2 Sat (Calc) VBG O2 Content VBG Base Excess POC Mix VBG pCO2 Pt Tmp O2 Delivery Device Blood Gas Notified Whom Blood Gas Notified Time Sodium 131 L Potassium 4.4 Chloride 93 L Carbon Dioxide 13.0 L Anion Gap 25 H BUN 15 Creatinine 1.15 Estim Creat Clear Calc 87.81 Est GFR (MDRD) Af Amer 101 Est GFR (MDRD) Non-Af 83 BUN/Creatinine Ratio 13.0 Glucose 553 H* Calcium 9.3 Total Bilirubin 1.40 H AST 15 ALT 22 Alkaline Phosphatase 118 H Total Protein 7.3 Albumin 4.1 Globulin 3.2 Albumin/Globulin Ratio 1.3 Lipase 34 L Acetone Level LARGE H 04/10/18 01:12 WBC RBC Hgb Hct MCV MCH MCHC RDW RDW Differential Plt Count MPV Immature Gran % (Auto) Neut % (Auto) Lymph % (Auto) Dick[place] % (Auto) Eos % (Auto) Baso % (Auto) Absolute Neuts (auto) Absolute Lymphs (auto) Total Counted Specimen Type ARIELA Sample Site OTHER VBG pH 7.31 L VBG pO2 44 H VBG O2 Sat (Calc) 77 H VBG O2 Content 12 L VBG Base Excess -14 L POC Mix VBG pCO2 Pt Tmp 23.3 L O2 Delivery Device Room Air Blood Gas Notified Whom ED MD Blood Gas Notified Time 105 Sodium Potassium Chloride Carbon Dioxide Anion Gap BUN Creatinine Estim Creat Clear Calc Est GFR (MDRD) Af Amer Est GFR (MDRD) Non-Af BUN/Creatinine Ratio Glucose Calcium Total Bilirubin AST ALT Alkaline Phosphatase Total Protein Albumin Globulin Albumin/Globulin Ratio Lipase Acetone Level POC Glucose 04/10/18 04/10/18 02:21 01:03 POC Glucose > 500 H* > 500 H* Assessment/Plan All Active Problems Esophagitis (Acute) DKA (diabetic ketoacidoses) (Acute) Lactic acidosis (Acute) DKA (diabetic ketoacidoses) (Acute) This is a 22-year-old male with a history of diabetes type 1 and recurrent DKA; and depression who presented with excruciating abdominal pain and found to have DKA and esophagitis. DKA The patient reports compliance with home insulin therapy His DKA could be secondary to insufficient insulin to meet his metabolic demands ; esophagitis that might be causing frequent vomiting, stress or other. No clear source of infection at this time.. Serum glucose 553 Large acetone level Anion gap of 25 Sodium 131, likely secondary to high glucose. Corrected sodium is 138 Insulin drip started from emergency department; continue Completed IV bolus of normal saline and normal saline infusion Because of potassium of 4.4 we will start patient on half-normal saline with potassium. BMP every 4 hours to calculate anion gap. N.p.o. for now Lactic acid ordered Admitted to ICU ICU electrolyte protocol ordered A1c and lactic acid ordered. Morphine and Zofran as needed. Flat Lock Machine Operator consult. Esophagitis Continue Protonix drip Surgery consult for evaluation for EGD Depression Home Cymbalta and trazodone held due to n.p.o. Resume when appropriate DVT prophylaxis Low risk Ambulate. Code Visit Inpatient E&M: 14070 Init Hosp L2
[2018-04-10 03:21] LABS: Bedside Glucose > 500 mg/dL (70-110)
[2018-04-10] MEDS: proMETHazine 25 MG/ML Syringe 12.5 MG IV (03:23)
--- NOTE | 2018-04-10 03:30 | ED.VISSUMM ---
- ER Visit Summary Date of Service: 04/10/18 Chief Complaint: Abdominal pain History of Present Illness: The patient is a 22 M who presents with abdominal pain. It is been present for 2 weeks. He has had recent admissions for diabetic ketoacidosis. He complains of persistent severe epigastric abdominal pain. He states he feels like no one is listening to him in regards to this and just attributing it to his DKA however he is continued to have pain after being treated. He states his pain became significantly worse today and he developed recurrent nausea and vomiting with 15 or more episodes. He reports urinary urgency. His abdominal pain is burning in nature. He denies fevers or chills. Physical Examination: Initial blood pressure 86/52 heart rate 133 vitals otherwise unremarkable Moist mucous membranes Heart regular rhythm tachycardia Lungs clear Abdomen soft nondistended with epigastric abdominal tenderness no guarding no rebound Alert Test Results: Labs notable for white blood cell count 12.9. Anion gap is 25 and bicarb 13.0. Glucose 553. Acetone is large. Total bilirubin 1.4. Alk phos 118. Lipase normal. CT the abdomen pelvis shows findings consistent with esophagitis. Emergency Department Course and Treatment: Patient is in DKA. He was treated with aggressive IV fluids. He was initially given Zofran for nausea. He vomited later and was also given Phenergan. He was initially given morphine for pain but continued to complain of pain with a borderline blood pressure and was given fentanyl. He was started on an insulin infusion for DKA as well as a Protonix infusion for esophagitis. He did have an episode of hematemesis while here. His blood pressure has improved with fluids. He will require admission to the ICU. Treatment Plan: [] Disposition: Admit Impression: DKA Esophagitis This note was generated with [employer] dictation software. It may contain incorrect words, spelling, and punctuation that were not noted in review of the chart prior to signing ED Disposition - Plan for ED Patient: Chief Complaint: Hyperglycemia Referrals: Jose Daniel Malik MD [Primary Care Provider] -
[2018-04-10 04:41] LABS: Bedside Glucose 385 mg/dL (70-110)
[2018-04-10] MEDS: 0.9% Normal Saline 1,000 ML 150 ML IV (04:54)
[2018-04-10] MEDS: Morphine 2 MG/ML Syringe IV ×3 (05:23→20:03)
[2018-04-10] MEDS: 0.9% NaCl Peripheral Flush Adult/Peds IV ×3 (05:39→20:04)
[2018-04-10 05:45] LABS: Bedside Glucose 274 mg/dL (70-110)
[2018-04-10 05:56] LABS: BUN 17 mg/dL (7-18); Glucose 287 mg/dL (74-106)
[2018-04-10 05:57] LABS: Anion Gap 20 (5-15); BUN/Creat Ratio 16.5 RATIO (10-20); Calcium,Total 8.1 mg/dL (8.5-10.1); Chloride 108 mmol/L (98-107); Creatinine, Serum 1.03 mg/dL (0.70-1.30); EST Glomerular Filtration Rate 95 mL/min (>60); Est Glom Filt Rate - Afr Amer 115 mL/min (>60); Estimated Creatinine Clearance 95.61 ml/min; Potassium 4.2 mmol/L (3.5-5.1); Sodium Level 142 mmol/L (136-145)
[2018-04-10 05:59] LABS: Lactic Acid 2.2 mmol/L (0.4-2.0)
[2018-04-10 06:40] LABS: Bedside Glucose 277 mg/dL (70-110)
--- NOTE | 2018-04-10 06:50 | PCM.CON.CC ---
Reason for Consult Date of Consultation: 04/10/18 Reason for Consultation: Diabetic ketoacidosis History of Present Illness: The patient is a 22-year-old male, with a history as outlined below, who presented to the emergency department on April 10 with generalized abdominal pain, nausea and vomiting. This is now the patient's fifth admission since January 2018. The patient was just discharged from the hospital on April 08 after having been treated for diabetic ketoacidosis. The patient's last known hemoglobin A1c from April 07 was noted to be 8.3. The patient reports compliance with the use of his home insulin. However, he does report that he has been noncompliant with endocrinology follow-up. He denied the presence of hematemesis to me. Nevertheless, he does report ongoing abdominal pain, which is generalized, and nonfocal in nature. On presentation to the emergency department, the patient was noted to be afebrile, tachycardic, but hemodynamically stable. He was able to maintain appropriate oxygen saturations on room air. Laboratory evaluation revealed a mildly elevated white blood cell count to 13,000. Chemistry profile revealed evidence of pseudohyponatremia at 131 with a corresponding chloride of 93, serum bicarbonate of 13 and an elevated anion gap to 25. Glucose was elevated to 553. Large serum acetone level was noted. CT abdomen/pelvis was obtained and revealed moderate thickening of the hood of the lower esophagus suggesting esophagitis. The patient received supplemental IV fluid hydration, antiemetics and was placed on a PPI drip. He was subsequently admitted to the medical intensive care unit for further management. Past Medical History Past Medical History (Chronic Problems): Chronic Problems Depression (Chronic) Type 1 diabetes mellitus (Chronic) Allergies No Known Allergies Allergy (Verified 04/10/18 00:30) Home Medications: Ambulatory Orders Medication Instructions Recorded Insulin Aspart [Novolog Vial] 10 unit SQ TIDCM #1 vial 02/21/18 Duloxetine Hcl [Cymbalta] 60 mg PO DAILY 03/08/18 [place], Insulin Disposable 1 each MISCELL. UD 03/16/18 [Novofine Autocover 30G Needle] traZODone [Desyrel] 50 mg PO QHS 03/16/18 Insulin Glargine,Hum.rec.anlog 23 unit SQ BID #30 ml 03/18/18 [Lantus] Surgical History: no surgical history Psychiatric History: Depression Smoking Status: Never smoker Tobacco Use: Non-smoker Alcohol: None - *Family History Maternal History Items: No pertinent history Paternal History Items: No pertinent history Review of Systems Constitutional: Reports: Weakness. Denies: Chills, Fever Eyes: Denies: Blurred vision, Double vision HEENT: Denies: Head Aches, Sinus Congestion, Sinus Drainage Cardiovascular: Denies: Chest Pain, Palpitations Respiratory: Denies: Cough, Shortness of breath at rest, Sputum production Gastrointestinal: Reports: Abdominal Pain, Nausea, Vomiting. Denies: Hematemesis Genitourinary: Denies: Dysuria Musculoskeletal: Denies: Joint Pain, Joint Tenderness Skin: Denies: Rash, Wounds Neurological: Denies: Numbness, Tingling, Focal weakness Psychiatric: Reports: Depression Hematologic/ Lymphatic: Denies: Easy Bruising, Easy Bleeding Patient Problems: Active and Suspected Problems Esophagitis (Acute) Objective: The patient's most recent lab work, culture data and imaging studies have all been personally reviewed. - Physical Exam General: Alert, Cooperative, - - Resting comfortably in bed. HEENT: Atraumatic, PERRLA, Normocephalic Oral: No Gingival or Mucosal Lesions/ Ulcerations, Dry Mucosa Neck: Supple, No Nodes, Trachea Midline Lungs: - - Diminished, secondary to poor patient dependent inspiratory effort. No appreciable wheezes, rales or rhonchi. Cardiovascular: Normal S1, Normal S2, No murmurs, No rub noted, No Gallop, Tachycardic Abdomen: Soft, Hypoactive Bowel Sounds, - - Facial grimacing/pain with soft abdominal palpation. No voluntary guarding or rigidity. Extremities: No clubbing, No cyanosis, No edema Skin: No breakdown Musculoskeletal: No Tenderness to Palpation of Joints or Extremities, No Muscle Wasting Lymphatic: No Cervical, Supraclavicular, or Inguinal Adenopathy Neurological: Neuro grossly intact Psych/Mental Status: Flat Affect Vital Signs Temp Pulse Resp BP Pulse Ox 97.6 F L 115 H 13 100/49 L 100 04/10/18 05:15 04/10/18 06:30 04/10/18 06:30 04/10/18 06:30 04/10/18 06:30 Oxygen Delivery Method Room Air Weight: 133 lb 9.602 oz Body Mass Index (BMI) 19.7 Finger Stick Blood Glucose 277 Intake and Output for Last 24 Hours 07/17/18 07/18/18 07/19/18 23:59 23:59 23:59 Intake Total 259 / 259 Output Total 400 / 400 Balance -141 / -141 Laboratory Tests Past 24 Hrs 04/10/18 04/10/18 04/10/18 04:50 05:20 05:20 Sodium 142 Potassium 4.2 Chloride 108 H Carbon Dioxide 14.0 L Anion Gap 20 H BUN 17 Creatinine 1.03 Estim Creat Clear Calc 95.61 Est GFR (MDRD) Af Amer 115 Est GFR (MDRD) Non-Af 95 BUN/Creatinine Ratio 16.5 Glucose 287 H Lactic Acid 2.2 H Calcium 8.1 L MRSA (PCR) Pending POC Glucose 04/10/18 04/10/18 04/10/18 06:33 05:35 04:36 POC Glucose 277 H 274 H 385 H Clinical Impression(s) from Imaging Studies Abdomen/Pelvis CT 04/10/18 01:47 IMPRESSION: There is moderate thickening of the hood of the lower esophagus suggesting esophagitis. Electronically Signed: Fito Soriano MD at 2:45 EDT Tel , Service support , Assessment/Plan Active and Suspected Problems Esophagitis (Acute) RECOMMENDATIONS: 1. Continue supplemental IV fluid hydration along with continuous insulin infusion, per DKA protocol. 2. Aggressive electrolyte repletion. 3. Continue PPI drip. 4. General surgery following the tentative plans for upper endoscopy tomorrow. 5. Start subcu heparin for DVT prophylaxis 6. Encourage incentive spirometer use and mobilize patient as tolerated. IMPRESSIONS: 1. Diabetic ketoacidosis The patient has a history of multiple previous hospitalizations for diabetic ketoacidosis. Although he does report compliance with his home insulin regimen, he does readily admit to a lack of follow-up with endocrinology. He will be treated with aggressive IV fluid resuscitation along with a continuous insulin drip, per DKA protocol. Continue to monitor serial chemistry profiles. Once anion gap has been close ?2, will transition from continuous insulin infusion to basal insulin and sliding scale coverage. Continue supplemental IV fluid hydration along with aggressive electrolyte repletion. 2. Generalized abdominal pain/nausea/vomiting with radiographic evidence of esophagitis Likely the consequence of diabetic ketoacidosis in combination with esophagitis noted on CT abdomen/pelvis. The patient will be continued on a PPI drip. I see no indication for the use of opiate pain medications at this time. Therefore, morphine has been discontinued. General surgery has been consulted and has tentative plans to perform an upper endoscopy tomorrow. The patient will remain n.p.o. for now. 3. Personal history of depression Complicates care, management, recovery and prognosis. Likely okay to resume outpatient psych medications, once the patient is able to tolerate p.o. intake. This note was generated with [employer] dictation software. It may contain incorrect words, spelling, and punctuation that were not noted in checking the note before signing. Code Visit Inpatient E&M: 55104 Init Hosp L3
--- NOTE | 2018-04-10 06:57 | CON.PCM_ITS ---
Reason for Consult Date of Consultation: 04/10/18 Reason for Consultation: Diabetic ketoacidosis History of Present Illness: The patient is a 22-year-old male, with a history as outlined below, who presented to the emergency department on April 10 with generalized abdominal pain , nausea and vomiting. This is now the patient's fifth admission since January 2018. The patient was just discharged from the hospital on April 08 after having been treated for diabetic ketoacidosis. The patient's last known hemoglobin A1c from April 07 was noted to be 8.3. The patient reports compliance with the use of his home insulin. However, he does report that he has been noncompliant with endocrinology follow-up. He denied the presence of hematemesis to me. Nevertheless, he does report ongoing abdominal pain, which is generalized, and nonfocal in nature. On presentation to the emergency department, the patient was noted to be afebrile, tachycardic, but hemodynamically stable. He was able to maintain appropriate oxygen saturations on room air. Laboratory evaluation revealed a mildly elevated white blood cell count to 13,000. Chemistry profile revealed evidence of pseudohyponatremia at 131 with a corresponding chloride of 93, serum bicarbonate of 13 and an elevated anion gap to 25. Glucose was elevated to 553. Large serum acetone level was noted. CT abdomen/pelvis was obtained and revealed moderate thickening of the hood of the lower esophagus suggesting esophagitis. The patient received supplemental IV fluid hydration, antiemetics and was placed on a PPI drip. He was subsequently admitted to the medical intensive care unit for further management. Past Medical History Past Medical History (Chronic Problems): Chronic Problems Depression (Chronic) Type 1 diabetes mellitus (Chronic) Allergies No Known Allergies Allergy (Verified 04/10/18 00:30) Home Medications: Ambulatory Orders Medication Instructions Recorded Insulin Aspart [Novolog Vial] 10 unit SQ TIDCM #1 vial 02/21/18 Duloxetine Hcl [Cymbalta] 60 mg PO DAILY 03/08/18 [place], Insulin Disposable 1 each MISCELL. UD 03/16/18 [Novofine Autocover 30G Needle] traZODone [Desyrel] 50 mg PO QHS 03/16/18 Insulin Glargine,Hum.rec.anlog 23 unit SQ BID #30 ml 03/18/18 [Lantus] Surgical History: no surgical history Psychiatric History: Depression Smoking Status: Never smoker Tobacco Use: Non-smoker Alcohol: None - *Family History Maternal History Items: No pertinent history Paternal History Items: No pertinent history Review of Systems Constitutional: Reports: Weakness. Denies: Chills, Fever Eyes: Denies: Blurred vision, Double vision HEENT: Denies: Head Aches, Sinus Congestion, Sinus Drainage Cardiovascular: Denies: Chest Pain, Palpitations Respiratory: Denies: Cough, Shortness of breath at rest, Sputum production Gastrointestinal: Reports: Abdominal Pain, Nausea, Vomiting. Denies: Hematemesis Genitourinary: Denies: Dysuria Musculoskeletal: Denies: Joint Pain, Joint Tenderness Skin: Denies: Rash, Wounds Neurological: Denies: Numbness, Tingling, Focal weakness Psychiatric: Reports: Depression Hematologic/ Lymphatic: Denies: Easy Bruising, Easy Bleeding Patient Problems: Active and Suspected Problems Esophagitis (Acute) Objective: The patient's most recent lab work, culture data and imaging studies have all been personally reviewed. - Physical Exam General: Alert, Cooperative, - - Resting comfortably in bed. HEENT: Atraumatic, PERRLA, Normocephalic Oral: No Gingival or Mucosal Lesions/ Ulcerations, Dry Mucosa Neck: Supple, No Nodes, Trachea Midline Lungs: - - Diminished, secondary to poor patient dependent inspiratory effort. No appreciable wheezes, rales or rhonchi. Cardiovascular: Normal S1, Normal S2, No murmurs, No rub noted, No Gallop, Tachycardic Abdomen: Soft, Hypoactive Bowel Sounds, - - Facial grimacing/pain with soft abdominal palpation. No voluntary guarding or rigidity. Extremities: No clubbing, No cyanosis, No edema Skin: No breakdown Musculoskeletal: No Tenderness to Palpation of Joints or Extremities, No Muscle Wasting Lymphatic: No Cervical, Supraclavicular, or Inguinal Adenopathy Neurological: Neuro grossly intact Psych/Mental Status: Flat Affect Vital Signs Temp Pulse Resp BP Pulse Ox 97.6 F L 115 H 13 100/49 L 100 04/10/18 05:15 04/10/18 06:30 04/10/18 06:30 04/10/18 06:30 04/10/18 06:30 Oxygen Delivery Method Room Air Weight: 133 lb 9.602 oz Body Mass Index (BMI) 19.7 Finger Stick Blood Glucose 277 Intake and Output for Last 24 Hours 07/17/18 07/18/18 07/19/18 23:59 23:59 23:59 Intake Total 259 / 259 Output Total 400 / 400 Balance -141 / -141 Laboratory Tests Past 24 Hrs 04/10/18 04/10/18 04/10/18 04:50 05:20 05:20 Sodium 142 Potassium 4.2 Chloride 108 H Carbon Dioxide 14.0 L Anion Gap 20 H BUN 17 Creatinine 1.03 Estim Creat Clear Calc 95.61 Est GFR (MDRD) Af Amer 115 Est GFR (MDRD) Non-Af 95 BUN/Creatinine Ratio 16.5 Glucose 287 H Lactic Acid 2.2 H Calcium 8.1 L MRSA (PCR) Pending POC Glucose 04/10/18 04/10/18 04/10/18 06:33 05:35 04:36 POC Glucose 277 H 274 H 385 H Clinical Impression(s) from Imaging Studies Abdomen/Pelvis CT 04/10/18 01:47 IMPRESSION: There is moderate thickening of the hood of the lower esophagus suggesting esophagitis. Electronically Signed: Fito Soriano MD at 2:45 EDT Tel , Service support , Assessment/Plan Active and Suspected Problems Esophagitis (Acute) RECOMMENDATIONS: 1. Continue supplemental IV fluid hydration along with continuous insulin infusion, per DKA protocol. 2. Aggressive electrolyte repletion. 3. Continue PPI drip. 4. General surgery following the tentative plans for upper endoscopy tomorrow. 5. Start subcu heparin for DVT prophylaxis 6. Encourage incentive spirometer use and mobilize patient as tolerated. IMPRESSIONS: 1. Diabetic ketoacidosis The patient has a history of multiple previous hospitalizations for diabetic ketoacidosis. Although he does report compliance with his home insulin regimen , he does readily admit to a lack of follow-up with endocrinology. He will be treated with aggressive IV fluid resuscitation along with a continuous insulin drip, per DKA protocol. Continue to monitor serial chemistry profiles. Once anion gap has been close ?2, will transition from continuous insulin infusion to basal insulin and sliding scale coverage. Continue supplemental IV fluid hydration along with aggressive electrolyte repletion. 2. Generalized abdominal pain/nausea/vomiting with radiographic evidence of esophagitis Likely the consequence of diabetic ketoacidosis in combination with esophagitis noted on CT abdomen/pelvis. The patient will be continued on a PPI drip. I see no indication for the use of opiate pain medications at this time. Therefore, morphine has been discontinued. General surgery has been consulted and has tentative plans to perform an upper endoscopy tomorrow. The patient will remain n.p.o. for now. 3. Personal history of depression Complicates care, management, recovery and prognosis. Likely okay to resume outpatient psych medications, once the patient is able to tolerate p.o. intake. This note was generated with [email or web address] dictation software. It may contain incorrect words, spelling, and punctuation that were not noted in checking the note before signing. Code Visit Inpatient E&M: 19647 Init Hosp L3
[2018-04-10 07:05] LABS: Osmolality, Serum 314 mOsm/KG (275-295)
[2018-04-10 07:14] LABS: Phosphorus 2.7 mg/dL (2.5-4.9)
--- NOTE | 2018-04-10 07:34 | PN_ITS ---
Patient Problems: Active and Suspected Problems Esophagitis (Acute) Subjective: Patient is a 22-year-old gentleman with history of diabetes mellitus type 1 with previous multiple admissions discharge from the hospital a day prior to his readmission with abdominal discomfort. Patient was also noted to be in DKA admitted to the intensive care unit for further management Objective: GENERAL: Patient appears ill looking HEENT: Clear conjunctiva, dry oral mucosa NECK; supple, normal thyroid, CHEST: Clear to auscultation bilaterally, HEART: Regular S1 S2, tachycardiac ABDOMEN: soft, non-tender, normoactive bowel sounds, RECTAL: deferred EXTREMITIES: No edema, no clubbing, no cyanosis. HEAD WAITRESS: Awake; no lateralizing signs. SKIN: No Rash Vitals/I&O's: Vital Signs Temp Pulse Resp BP Pulse Ox 97.6 F L 115 H 13 100/49 L 100 04/10/18 05:15 04/10/18 06:30 04/10/18 06:30 04/10/18 06:30 04/10/18 06:30 Oxygen Delivery Method Room Air Weight: 60.6 kg Body Mass Index (BMI) 19.7 Finger Stick Blood Glucose 277 Intake and Output for Last 24 Hours 04/08/18 04/09/18 04/10/18 23:59 23:59 23:59 Intake Total 259 / 259 Output Total 400 / 400 Balance -141 / -141 Laboratory Results 04/10/18 04:36: POC Glucose 385 H 04/10/18 04:50: MRSA (PCR) Pending 04/10/18 05:20: Lactic Acid 2.2 H 04/10/18 05:20: Sodium 142, Potassium 4.2, Chloride 108 H, Carbon Dioxide 14.0 L , Anion Gap 20 H, BUN 17, Creatinine 1.03, Estim Creat Clear Calc 95.61, Est GFR (MDRD) Af Amer 115, Est GFR (MDRD) Non-Af 95, BUN/Creatinine Ratio 16.5, Glucose 287 H, Calcium 8.1 L 04/10/18 05:20: Phosphorus 2.7, Magnesium 2.0 04/10/18 05:35: POC Glucose 274 H 04/10/18 06:33: POC Glucose 277 H Current Medications Bisacodyl (Dulcolax) 5 mg PO DAILY PRN PRN PRN Reason: Constipation Dextrose (D50w Syringe) 0 gm IV X1 PRN; Protocol PRN Reason: HYPOGLYCEMIA Insulin Aspart 100 unit/ (Sodium Chloride) 100 mls @ 6.21 mls/hr CONT INF .Q16H7M KRISTINE; 0.1 UNITS/KG/HR PRN Reason: Protocol Last Admin: 04/10/18 02:22 Dose: 6.21 mls/hr Pantoprazole Sodium 80 mg/ (Sodium Chloride) 100 mls @ 10 mls/hr CONT INF Q10H KRISTINE Last Admin: 04/10/18 04:15 Dose: 10 mls/hr Insulin Aspart 100 unit/ (Sodium Chloride) 100 mls @ 6.21 mls/hr IV .Q16H7M KRISTINE ; 0.1 UNITS/KG/HR PRN Reason: Protocol Last Admin: 04/10/18 05:37 Dose: Not Given Potassium Chloride/Sodium Chloride (Kcl 20meq In 0.45% Ns 1000ml) 1,000 mls @ 125 mls/hr IV .Q8H KRISTINE Potassium Chloride/Sodium Chloride (Kcl 20meq In 0.45% Ns 1000ml) 1,000 mls @ 175 mls/hr IV .Q5H43M KRISTINE Stop: 04/10/18 08:09 Last Admin: 04/10/18 05:32 Dose: 175 mls/hr Sodium Chloride () 250 mls @ 15 mls/hr IV .[id number] PRN PRN Reason: SALINE FLUSH Magnesium Hydroxide (Milk Of Magnesia) 30 ml PO DAILY PRN PRN PRN Reason: Constipation Ondansetron HCl (Zofran) 4 mg IV Q6H PRN PRN PRN Reason: NAUSEA/VOMITING Last Admin: 04/10/18 05:23 Dose: 4 mg Sodium Chloride () 5 - 30 ml IV UD PRN PRN Reason: SALINE FLUSH Last Admin: 04/10/18 05:39 Dose: 30 ml Medical Necessity - Tobacco Use Smoking Status: Never smoker Tobacco Use: Non-smoker Assessment/Plan All Active Problems Esophagitis (Acute) DKA (diabetic ketoacidoses) (Acute) Lactic acidosis (Acute) DKA (diabetic ketoacidoses) (Acute) Patient is a 22-year-old gentleman with history of diabetes mellitus type 1 with previous multiple admissions discharge from the hospital a day prior to his readmission with abdominal discomfort. Patient was also noted to be in DKA admitted to the intensive care unit for further management. CT of the chest obtained and admission demonstrated moderate thickening of the hood of the lower esophagus suggesting esophagitis 1. Diabetic ketoacidosis: Patient has been admitted to monitored bed managed with aggressive IV fluid resuscitation systemic insulin and correction of electrolyte abnormalities. 2. Esophagitis patient is on PPI consult placed to general surgery for consideration for EGD 3. Abdominal pain suspected to be secondary to #2 management as discussed above 4. DVT prophylaxis low risk Clinical Impression(s) from Imaging Studies Abdomen/Pelvis CT 04/10/18 01:47 IMPRESSION: There is moderate thickening of the hood of the lower esophagus suggesting esophagitis. Electronically Signed: Fito Soriano MD at 2:45 EDT Tel , Service support , Active Medications Bisacodyl (Dulcolax) 5 mg PO DAILY PRN PRN PRN Reason: Constipation Dextrose (D50w Syringe) 0 gm IV X1 PRN; Protocol PRN Reason: HYPOGLYCEMIA Insulin Aspart 100 unit/ (Sodium Chloride) 100 mls @ 6.21 mls/hr CONT INF .Q16H7M KRISTINE; 0.1 UNITS/KG/HR PRN Reason: Protocol Last Admin: 04/10/18 02:22 Dose: 6.21 mls/hr Pantoprazole Sodium 80 mg/ (Sodium Chloride) 100 mls @ 10 mls/hr CONT INF Q10H KRISTINE Last Admin: 04/10/18 04:15 Dose: 10 mls/hr Insulin Aspart 100 unit/ (Sodium Chloride) 100 mls @ 6.21 mls/hr IV .Q16H7M KRISTINE ; 0.1 UNITS/KG/HR PRN Reason: Protocol Last Admin: 04/10/18 05:37 Dose: Not Given Potassium Chloride/Sodium Chloride (Kcl 20meq In 0.45% Ns 1000ml) 1,000 mls @ 125 mls/hr IV .Q8H KRISTINE Potassium Chloride/Sodium Chloride (Kcl 20meq In 0.45% Ns 1000ml) 1,000 mls @ 175 mls/hr IV .Q5H43M KRISTINE Stop: 04/10/18 08:09 Last Admin: 04/10/18 05:32 Dose: 175 mls/hr Sodium Chloride () 250 mls @ 15 mls/hr IV .[id number] PRN PRN Reason: SALINE FLUSH Magnesium Hydroxide (Milk Of Magnesia) 30 ml PO DAILY PRN PRN PRN Reason: Constipation Ondansetron HCl (Zofran) 4 mg IV Q6H PRN PRN PRN Reason: NAUSEA/VOMITING Last Admin: 04/10/18 05:23 Dose: 4 mg Sodium Chloride () 5 - 30 ml IV UD PRN PRN Reason: SALINE FLUSH Last Admin: 04/10/18 05:39 Dose: 30 ml Code Visit Inpatient E&M: 76457 Subs Hosp L3
[2018-04-10 07:41] LABS: Bedside Glucose 221 mg/dL (70-110)
[2018-04-10 08:04] LABS: Hemoglobin A1c 8.1 % (4.2-6.3)
[2018-04-10 08:13] LABS: M R Staph aureus DNA By PCR Negative (Negative)
[2018-04-10 08:14] LABS: Probe Check PASS; Specimen Processing Control PASS
[2018-04-10 08:36] LABS: Bedside Glucose 209 mg/dL (70-110)
[2018-04-10 09:21] LABS: Amphetamine Urine VISTA NEGATIVE (<1000 ng/mL); Barbiturate Urine VISTA NEGATIVE (< 200 ng/mL); Benzodiazepine Urine VISTA NEGATIVE (< 200 ng/mL); Cocaine Urine VISTA NEGATIVE (< 300 ng/mL); Ecstacy Urine VISTA NEGATIVE (< 500 ng/mL); Methadone Urine VISTA NEGATIVE (< 300 ng/mL); PCP Urine VISTA NEGATIVE (< 25 ng/mL); THC Urine VISTA NEGATIVE (< 50 ng/mL); Vista UDS pH Range 5
[2018-04-10 09:22] LABS: Reflex Lactate? Y
[2018-04-10] MEDS: Ketorolac 15 MG/ML Vial IV (09:42)
[2018-04-10 09:51] LABS: Bedside Glucose 293 mg/dL (70-110)
[2018-04-10 10:19] LABS: Anion Gap 21 (5-15); BUN 14 mg/dL (7-18); BUN/Creat Ratio 13.5 RATIO (10-20); Chloride 107 mmol/L (98-107); Creatinine, Serum 1.04 mg/dL (0.70-1.30); EST Glomerular Filtration Rate 94 mL/min (>60); Est Glom Filt Rate - Afr Amer 113 mL/min (>60); Estimated Creatinine Clearance 94.69 ml/min; Glucose 275 mg/dL (74-106); Potassium 4.8 mmol/L (3.5-5.1); Sodium Level 138 mmol/L (136-145)
[2018-04-10 10:30] LABS: Lactic Acid 1.4 mmol/L (0.4-2.0)
[2018-04-10 11:01] LABS: Bedside Glucose 256 mg/dL (70-110)
--- NOTE | 2018-04-10 11:08 | PCM.CONS.GEN ---
Reason for Consult Date of Consultation: 04/10/18 Reason for Consultation: Esophagitis History of Present Illness: The patient is a 22 year old M was recently discharged from the hospital for DKA on Saturday. Presented to the ER yesterday night due to epigastric pain 07/02. Patient states he has had this pain on and off for years; however it was worse yesterday and he also had multiple episodes of vomiting yesterday and the day before per the patient. He states he occasionally does have some reflux and thinks he may have had EGD sometime in the past in [place] but unsure when or where exactly that was done. Patient denies being on any type of PPI or H2 barbra. He does complain of nausea as well as epigastric pain currently and 06/02. Patient had a CT abdomen pelvis did show some thickening of the distal esophagus questionable esophagitis. Patient has been on Protonix drip and admitted to the ICU for DKA as well. Patient is unable to say if anything made the pain better or worse in the past or really unable to say when the pain typically occurred or even about how often he had this sort of pain. Past Medical History Past Medical History (Chronic Problems): Chronic Problems Depression (Chronic) Type 1 diabetes mellitus (Chronic) Allergies No Known Allergies Allergy (Verified 04/10/18 00:30) Home Medications: Ambulatory Orders Medication Instructions Recorded Insulin Aspart [Novolog Vial] 10 unit SQ TIDCM #1 vial 02/21/18 Duloxetine Hcl [Cymbalta] 60 mg PO DAILY 03/08/18 [place], Insulin Disposable 1 each MISCELL. UD 03/16/18 [Novofine Autocover 30G Needle] traZODone [Desyrel] 50 mg PO QHS 03/16/18 Insulin Glargine,Hum.rec.anlog 23 unit SQ BID #30 ml 03/18/18 [Lantus] Surgical History: no surgical history Psychiatric History: Depression Smoking Status: Never smoker Tobacco Use: Non-smoker Alcohol: None - *Family History Maternal History Items: No pertinent history Paternal History Items: No pertinent history Review of Systems Constitutional: Denies: Fever Eyes: Denies: Blurred vision HEENT: Denies: Difficulty Swallowing Cardiovascular: Denies: Chest Pain Respiratory: Denies: Shortness of breath at rest Gastrointestinal: Reports: Abdominal Pain, Nausea, Vomiting Genitourinary: Denies: Dysuria Musculoskeletal: Denies: Joint Pain Skin: Denies: Rash Neurological: Denies: Numbness, Tingling Psychiatric: Reports: Anxiety, Depression - On medication denies suicidal ideations Hematologic/ Lymphatic: Denies: Easy Bruising, Easy Bleeding Patient Problems: Active and Suspected Problems Esophagitis (Acute) - Physical Exam General: Alert, Oriented x3, Cooperative HEENT: Atraumatic Neck: Supple Lungs: Normal air movement Cardiovascular: Tachycardic Abdomen: Soft, Non-Distended, Tender - Diffusely mainly in the epigastric region, no guarding, no rebound Extremities: No clubbing, No cyanosis, No edema Skin: No rashes Musculoskeletal: No Muscle Wasting Neurological: Cranial nerves II-XII grossly intact Psych/Mental Status: Normal Affect Vital Signs Temp Pulse Resp BP Pulse Ox 98.1 F 122 H 15 123/54 H 98 04/10/18 07:30 04/10/18 10:00 04/10/18 10:00 04/10/18 10:00 04/10/18 10:00 Oxygen Delivery Method Room Air Weight: 133 lb 9.602 oz Body Mass Index (BMI) 19.7 Finger Stick Blood Glucose 256 Intake and Output for Last 24 Hours 04/08/18 04/09/18 04/10/18 23:59 23:59 23:59 Intake Total 1058 / 1058 Output Total 1200 / 1200 Balance -142 / -142 Laboratory Tests Past 24 Hrs 04/10/18 04/10/18 04/10/18 04:50 05:20 05:20 Sodium 142 Potassium 4.2 Chloride 108 H Carbon Dioxide 14.0 L Anion Gap 20 H BUN 17 Creatinine 1.03 Estim Creat Clear Calc 95.61 Est GFR (MDRD) Af Amer 115 Est GFR (MDRD) Non-Af 95 BUN/Creatinine Ratio 16.5 Glucose 287 H Lactic Acid 2.2 H Calcium 8.1 L Phosphorus Magnesium Urine Opiates Screen Urine Methadone Screen Ur Barbiturates Screen Ur Phencyclidine Scrn Ur Amphetamines Screen U Methamphetamin-MDMA U Benzodiazepines Scrn Urine Cocaine Screen U Cannabinoids Screen Ur Drug Screen Comment MRSA (PCR) Negative 04/10/18 04/10/18 04/10/18 05:20 09:00 09:40 Sodium 138 Potassium 4.8 Chloride 107 Carbon Dioxide 10.0 L Anion Gap 21 H BUN 14 Creatinine 1.04 Estim Creat Clear Calc 94.69 Est GFR (MDRD) Af Amer 113 Est GFR (MDRD) Non-Af 94 BUN/Creatinine Ratio 13.5 Glucose 275 H Lactic Acid Calcium 8.0 L Phosphorus 2.7 Magnesium 2.0 Urine Opiates Screen POSITIVE H Urine Methadone Screen NEGATIVE Ur Barbiturates Screen NEGATIVE Ur Phencyclidine Scrn NEGATIVE Ur Amphetamines Screen NEGATIVE U Methamphetamin-MDMA NEGATIVE U Benzodiazepines Scrn NEGATIVE Urine Cocaine Screen NEGATIVE U Cannabinoids Screen NEGATIVE Ur Drug Screen Comment MRSA (PCR) 04/10/18 09:40 Sodium Potassium Chloride Carbon Dioxide Anion Gap BUN Creatinine Estim Creat Clear Calc Est GFR (MDRD) Af Amer Est GFR (MDRD) Non-Af BUN/Creatinine Ratio Glucose Lactic Acid 1.4 Calcium Phosphorus Magnesium Urine Opiates Screen Urine Methadone Screen Ur Barbiturates Screen Ur Phencyclidine Scrn Ur Amphetamines Screen U Methamphetamin-MDMA U Benzodiazepines Scrn Urine Cocaine Screen U Cannabinoids Screen Ur Drug Screen Comment MRSA (PCR) POC Glucose 04/10/18 04/10/18 04/10/18 10:55 09:40 08:29 POC Glucose 256 H 293 H 209 H 04/10/18 04/10/18 04/10/18 07:32 06:33 05:35 POC Glucose 221 H 277 H 274 H 04/10/18 04:36 POC Glucose 385 H Assessment/Plan All Active Problems Esophagitis (Acute) DKA (diabetic ketoacidoses) (Acute) Lactic acidosis (Acute) DKA (diabetic ketoacidoses) (Acute) 22-year-old male with epigastric pain, thickening of esophagus on CT abdomen pelvis, possible esophagitis, DKA 1. Continue n.p.o./IV fluids/Protonix IV/anti-antiemetics. Recommend avoiding NSAIDs. Discussed with the patient the procedure of an EGD will plan for 8 AM tomorrow morning. Did discuss risks including but not limited to bleeding, perforation-requiring emergency surgery, and anesthesia. Patient had no further questions at this time. 2. DKA management per ICU Alma Rosa Sinclair M.D. Pager: [phone] [facility] [address] [place] [address], [facility], [address] [place] [address] Office: [phone] Code Visit Inpatient E&M: 13762 Init Hosp L1
[2018-04-10] MEDS: Lactated Ringers 1,000 ML 999 ML IV ×4 (11:09→20:03)
--- NOTE | 2018-04-10 11:11 | CON.PCM_ITS ---
Reason for Consult Date of Consultation: 04/10/18 Reason for Consultation: Esophagitis History of Present Illness: The patient is a 22 year old M was recently discharged from the hospital for DKA on Saturday. Presented to the ER yesterday night due to epigastric pain . Patient states he has had this pain on and off for years; however it was worse yesterday and he also had multiple episodes of vomiting yesterday and the day before per the patient. He states he occasionally does have some reflux and thinks he may have had EGD sometime in the past in [place] but unsure when or where exactly that was done. Patient denies being on any type of PPI or H2 barbra. He does complain of nausea as well as epigastric pain currently and . Patient had a CT abdomen pelvis did show some thickening of the distal esophagus questionable esophagitis. Patient has been on Protonix drip and admitted to the ICU for DKA as well. Patient is unable to say if anything made the pain better or worse in the past or really unable to say when the pain typically occurred or even about how often he had this sort of pain. Past Medical History Past Medical History (Chronic Problems): Chronic Problems Depression (Chronic) Type 1 diabetes mellitus (Chronic) Allergies No Known Allergies Allergy (Verified 04/10/18 00:30) Home Medications: Ambulatory Orders Medication Instructions Recorded Insulin Aspart [Novolog Vial] 10 unit SQ TIDCM #1 vial 02/21/18 Duloxetine Hcl [Cymbalta] 60 mg PO DAILY 03/08/18 [place], Insulin Disposable 1 each MISCELL. UD 03/16/18 [Novofine Autocover 30G Needle] traZODone [Desyrel] 50 mg PO QHS 03/16/18 Insulin Glargine,Hum.rec.anlog 23 unit SQ BID #30 ml 03/18/18 [Lantus] Surgical History: no surgical history Psychiatric History: Depression Smoking Status: Never smoker Tobacco Use: Non-smoker Alcohol: None - *Family History Maternal History Items: No pertinent history Paternal History Items: No pertinent history Review of Systems Constitutional: Denies: Fever Eyes: Denies: Blurred vision HEENT: Denies: Difficulty Swallowing Cardiovascular: Denies: Chest Pain Respiratory: Denies: Shortness of breath at rest Gastrointestinal: Reports: Abdominal Pain, Nausea, Vomiting Genitourinary: Denies: Dysuria Musculoskeletal: Denies: Joint Pain Skin: Denies: Rash Neurological: Denies: Numbness, Tingling Psychiatric: Reports: Anxiety, Depression - On medication denies suicidal ideations Hematologic/ Lymphatic: Denies: Easy Bruising, Easy Bleeding Patient Problems: Active and Suspected Problems Esophagitis (Acute) - Physical Exam General: Alert, Oriented x3, Cooperative HEENT: Atraumatic Neck: Supple Lungs: Normal air movement Cardiovascular: Tachycardic Abdomen: Soft, Non-Distended, Tender - Diffusely mainly in the epigastric region , no guarding, no rebound Extremities: No clubbing, No cyanosis, No edema Skin: No rashes Musculoskeletal: No Muscle Wasting Neurological: Cranial nerves II-XII grossly intact Psych/Mental Status: Normal Affect Vital Signs Temp Pulse Resp BP Pulse Ox 98.1 F 122 H 15 123/54 H 98 04/10/18 07:30 04/10/18 10:00 04/10/18 10:00 04/10/18 10:00 04/10/18 10:00 Oxygen Delivery Method Room Air Weight: 133 lb 9.602 oz Body Mass Index (BMI) 19.7 Finger Stick Blood Glucose 256 Intake and Output for Last 24 Hours 04/08/18 04/09/18 04/10/18 23:59 23:59 23:59 Intake Total 1058 / 1058 Output Total 1200 / 1200 Balance -142 / -142 Laboratory Tests Past 24 Hrs 04/10/18 04/10/18 04/10/18 04:50 05:20 05:20 Sodium 142 Potassium 4.2 Chloride 108 H Carbon Dioxide 14.0 L Anion Gap 20 H BUN 17 Creatinine 1.03 Estim Creat Clear Calc 95.61 Est GFR (MDRD) Af Amer 115 Est GFR (MDRD) Non-Af 95 BUN/Creatinine Ratio 16.5 Glucose 287 H Lactic Acid 2.2 H Calcium 8.1 L Phosphorus Magnesium Urine Opiates Screen Urine Methadone Screen Ur Barbiturates Screen Ur Phencyclidine Scrn Ur Amphetamines Screen U Methamphetamin-MDMA U Benzodiazepines Scrn Urine Cocaine Screen U Cannabinoids Screen Ur Drug Screen Comment MRSA (PCR) Negative 04/10/18 04/10/18 04/10/18 05:20 09:00 09:40 Sodium 138 Potassium 4.8 Chloride 107 Carbon Dioxide 10.0 L Anion Gap 21 H BUN 14 Creatinine 1.04 Estim Creat Clear Calc 94.69 Est GFR (MDRD) Af Amer 113 Est GFR (MDRD) Non-Af 94 BUN/Creatinine Ratio 13.5 Glucose 275 H Lactic Acid Calcium 8.0 L Phosphorus 2.7 Magnesium 2.0 Urine Opiates Screen POSITIVE H Urine Methadone Screen NEGATIVE Ur Barbiturates Screen NEGATIVE Ur Phencyclidine Scrn NEGATIVE Ur Amphetamines Screen NEGATIVE U Methamphetamin-MDMA NEGATIVE U Benzodiazepines Scrn NEGATIVE Urine Cocaine Screen NEGATIVE U Cannabinoids Screen NEGATIVE Ur Drug Screen Comment MRSA (PCR) 04/10/18 09:40 Sodium Potassium Chloride Carbon Dioxide Anion Gap BUN Creatinine Estim Creat Clear Calc Est GFR (MDRD) Af Amer Est GFR (MDRD) Non-Af BUN/Creatinine Ratio Glucose Lactic Acid 1.4 Calcium Phosphorus Magnesium Urine Opiates Screen Urine Methadone Screen Ur Barbiturates Screen Ur Phencyclidine Scrn Ur Amphetamines Screen U Methamphetamin-MDMA U Benzodiazepines Scrn Urine Cocaine Screen U Cannabinoids Screen Ur Drug Screen Comment MRSA (PCR) POC Glucose 04/10/18 04/10/18 04/10/18 10:55 09:40 08:29 POC Glucose 256 H 293 H 209 H 04/10/18 04/10/18 04/10/18 07:32 06:33 05:35 POC Glucose 221 H 277 H 274 H 04/10/18 04:36 POC Glucose 385 H Assessment/Plan All Active Problems Esophagitis (Acute) DKA (diabetic ketoacidoses) (Acute) Lactic acidosis (Acute) DKA (diabetic ketoacidoses) (Acute) 22-year-old male with epigastric pain, thickening of esophagus on CT abdomen pelvis, possible esophagitis, DKA 1. Continue n.p.o./IV fluids/Protonix IV/anti-antiemetics. Recommend avoiding NSAIDs. Discussed with the patient the procedure of an EGD will plan for 8 AM tomorrow morning. Did discuss risks including but not limited to bleeding, perforation-requiring emergency surgery, and anesthesia. Patient had no further questions at this time. 2. DKA management per ICU Alma Rosa Sinclair M.D. Pager: [phone] [facility] [address] [place] [address], [facility], [address] [place] [address] Office: [phone] Code Visit Inpatient E&M: 62410 Init Hosp L1
--- NOTE | 2018-04-10 11:50 | CASEMGMT ---
EMORY ARRIETA RE-ADMISSION NOTE: Pt last admission was 04/07/18 to 04/08/18. Treatment was for DKA, Non-compliant Diabetic. Discharged home to F/U with PCP on discharge. Present admission DX: DKA and esophagitis. Intro role of EMORY ARRIETA to patient. Pt resting in bed, not feeling well and c/o intermittent pain. Sates he has not followed up with his PCP and states does not remember when he saw his PCP last. Pt states he does have family that assist with transportation but that he has not seen PCP because of life situations, but he would not elaborate on this. Pt states he does have supplies for diabetic management. Pt was given information on Diabetic Clinic in [facility] on prior admission, but pt reports did not follow up with them and states does not know why. D/C PLAN: Home on D/C with physician f/u. Nolan ALVES RN, CM
[2018-04-10 12:05] LABS: Bedside Glucose 200 mg/dL (70-110)
[2018-04-10] MEDS: Dext 5%-0.45% NS 1,000 ML 150 ML IV (13:09)
[2018-04-10 13:31] LABS: Bedside Glucose 146 mg/dL (70-110)
--- NOTE | 2018-04-10 13:50 | CASEMGMT ---
GUNNAR called [facility] and asked that someone come talk with patient. GUNNAR spoke with Apolinar and he said he would be able to come and talk with patient tomorrow (04-10-18). My GOMEZ
[2018-04-10 14:01] LABS: Bedside Glucose 159 mg/dL (70-110)
[2018-04-10 14:25] LABS: BUN 12 mg/dL (7-18); Creatinine, Serum 0.91 mg/dL (0.70-1.30); EST Glomerular Filtration Rate 109 mL/min (>60); Estimated Creatinine Clearance 108.21 ml/min; Glucose 153 mg/dL (74-106)
[2018-04-10 14:26] LABS: Anion Gap 15 (5-15); BUN/Creat Ratio 13.2 RATIO (10-20); Calcium,Total 7.9 mg/dL (8.5-10.1); Chloride 111 mmol/L (98-107); Est Glom Filt Rate - Afr Amer 132 mL/min (>60); Potassium 4.4 mmol/L (3.5-5.1); Sodium Level 141 mmol/L (136-145)
[2018-04-10 15:11] LABS: Bedside Glucose 150 mg/dL (70-110)
[2018-04-10 16:05] LABS: Bedside Glucose 141 mg/dL (70-110)
[2018-04-10 17:01] LABS: Bedside Glucose 117 mg/dL (70-110)
[2018-04-10 18:01] LABS: Bedside Glucose 173 mg/dL (70-110)
[2018-04-10 18:34] LABS: Anion Gap 16 (5-15); BUN 10 mg/dL (7-18); BUN/Creat Ratio 12.3 RATIO (10-20); Calcium,Total 8.3 mg/dL (8.5-10.1); Chloride 110 mmol/L (98-107); Creatinine, Serum 0.82 mg/dL (0.70-1.30); EST Glomerular Filtration Rate 124 mL/min (>60); Est Glom Filt Rate - Afr Amer 150 mL/min (>60); Estimated Creatinine Clearance 120.09 ml/min; Glucose 169 mg/dL (74-106); Potassium 4.3 mmol/L (3.5-5.1); Sodium Level 142 mmol/L (136-145)
[2018-04-10 19:01] LABS: Bedside Glucose 237 mg/dL (70-110)
[2018-04-10 22:26] LABS: Bedside Glucose 288 mg/dL (70-110)
[2018-04-10 22:26] LABS: Bedside Glucose 333 mg/dL (70-110)
[2018-04-10 22:44] LABS: Anion Gap 12 (5-15); BUN 9 mg/dL (7-18); BUN/Creat Ratio 10.1 RATIO (10-20); Calcium,Total 7.4 mg/dL (8.5-10.1); Chloride 110 mmol/L (98-107); Creatinine, Serum 0.89 mg/dL (0.70-1.30); EST Glomerular Filtration Rate 112 mL/min (>60); Est Glom Filt Rate - Afr Amer 136 mL/min (>60); Estimated Creatinine Clearance 110.65 ml/min; Glucose 214 mg/dL (74-106); Potassium 3.7 mmol/L (3.5-5.1); Sodium Level 140 mmol/L (136-145)
[2018-04-10 23:26] LABS: Bedside Glucose 229 mg/dL (70-110)
[2018-04-10 23:26] LABS: Bedside Glucose 167 mg/dL (70-110)
[2018-04-11] VITALS (18 sets, daily range): BP systolic 126–152; BP diastolic 65–90; PULSE 89–115; RESP 10–20; TEMP 36.4–37.3; O2SAT 98–100
[2018-04-11 00:06] LABS: Bedside Glucose 190 mg/dL (70-110)
[2018-04-11] MEDS: 0.9% NaCl Peripheral Flush Adult/Peds IV ×3 (01:06→10:24)
[2018-04-11] MEDS: Morphine 2 MG/ML Syringe IV (01:06)
[2018-04-11] MEDS: Ondansetron 4 MG/2 ML Vial IV (01:09)
[2018-04-11 01:16] LABS: Bedside Glucose 192 mg/dL (70-110)
[2018-04-11 02:38] LABS: Anion Gap 13 (5-15); BUN 7 mg/dL (7-18); BUN/Creat Ratio 8.4 RATIO (10-20); Calcium,Total 7.2 mg/dL (8.5-10.1); Chloride 108 mmol/L (98-107); Creatinine, Serum 0.83 mg/dL (0.70-1.30); EST Glomerular Filtration Rate 121 mL/min (>60); Est Glom Filt Rate - Afr Amer 147 mL/min (>60); Estimated Creatinine Clearance 118.64 ml/min; Glucose 186 mg/dL (74-106); Potassium 3.6 mmol/L (3.5-5.1); Sodium Level 139 mmol/L (136-145)
[2018-04-11] MEDS: Dext 5%-0.45% NS 1,000 ML 150 ML IV ×2 (03:27→08:42)
[2018-04-11 03:30] LABS: Bedside Glucose 185 mg/dL (70-110)
[2018-04-11 03:30] LABS: Bedside Glucose 182 mg/dL (70-110)
[2018-04-11 05:46] LABS: Bedside Glucose 149 mg/dL (70-110)
[2018-04-11 06:47] LABS: Anion Gap 11 (5-15); BUN 7 mg/dL (7-18); BUN/Creat Ratio 8.1 RATIO (10-20); Calcium,Total 7.7 mg/dL (8.5-10.1); Chloride 108 mmol/L (98-107); Creatinine, Serum 0.86 mg/dL (0.70-1.30); EST Glomerular Filtration Rate 117 mL/min (>60); Est Glom Filt Rate - Afr Amer 141 mL/min (>60); Estimated Creatinine Clearance 122.82 ml/min; Glucose 148 mg/dL (74-106); Potassium 3.5 mmol/L (3.5-5.1); Sodium Level 140 mmol/L (136-145)
--- NOTE | 2018-04-11 06:50 | PCM.PN.INT ---
Subjective: The patient was seen and examined at the bedside this morning. Events from the last 24 hours have been reviewed. The patient is currently afebrile, hemodynamically stable and maintaining appropriate oxygen saturations on room air. We did receive a call from [facility] regarding a positive blood culture from their facility, which was likely contaminant. However, repeat blood cultures were sent yesterday for the sake of completeness and for follow-up. The patient does continue to endorse abdominal pain and nausea. His anion gap is now closed. However, he remains on a continuous insulin drip, given his current n.p.o. status, in preparation for upper endoscopy this morning. Objective: The patient's most recent lab work, culture data and imaging studies have all been personally reviewed. Blood cultures are currently pending. General: Alert, Cooperative, No apparent distress HEENT: Atraumatic, PERRLA, Normocephalic Oral: Dry Mucosa Neck: Supple, No Nodes, Trachea Midline Lungs: No rhonchi, No wheeze, No rales, Diminished Cardiovascular: Regular rate, Regular Rhythm, Normal S1, Normal S2, No murmurs, No rub noted, No Gallop Abdomen: Soft, Hypoactive Bowel Sounds, - - Diffusely tender to palpation Extremities: No clubbing, No cyanosis, No edema Skin: No rashes, No breakdown Musculoskeletal: No Tenderness to Palpation of Joints or Extremities, No Muscle Wasting Lymphatic: No Cervical, Supraclavicular, or Inguinal Adenopathy Neurological: Neuro grossly intact Psych/Mental Status: Flat Affect Vital Signs Temp Pulse Resp BP Pulse Ox 98.4 F 102 H 12 152/88 H 100 04/11/18 04:00 04/11/18 06:00 04/11/18 06:00 04/11/18 06:00 04/11/18 06:00 Oxygen Delivery Method Room Air Weight: 143 lb 4.807 oz Body Mass Index (BMI) 19.7 Finger Stick Blood Glucose 149 Intake and Output for Last 24 Hours 04/09/18 04/10/18 04/11/18 23:59 23:59 23:59 Intake Total 6379.7 / 6379.7 807.1 / 807.1 Output Total 2900 / 2900 600 / 600 Balance 3479.7 / 3479.7 207.1 / 207.1 Labs (Last 48 Hours) 04/10/18 04/10/18 04/10/18 04:36 04:50 05:20 Sodium Potassium Chloride Carbon Dioxide Anion Gap BUN Creatinine Estim Creat Clear Calc Est GFR (MDRD) Af Amer Est GFR (MDRD) Non-Af BUN/Creatinine Ratio Glucose Lactic Acid 2.2 H Calcium Phosphorus Magnesium Urine Opiates Screen Urine Methadone Screen Ur Barbiturates Screen Ur Phencyclidine Scrn Ur Amphetamines Screen U Methamphetamin-MDMA U Benzodiazepines Scrn Urine Cocaine Screen U Cannabinoids Screen Ur Drug Screen Comment MRSA (PCR) Negative POC Glucose 385 H 04/10/18 04/10/18 04/10/18 05:20 05:20 05:35 Sodium 142 Potassium 4.2 Chloride 108 H Carbon Dioxide 14.0 L Anion Gap 20 H BUN 17 Creatinine 1.03 Estim Creat Clear Calc 95.61 Est GFR (MDRD) Af Amer 115 Est GFR (MDRD) Non-Af 95 BUN/Creatinine Ratio 16.5 Glucose 287 H Lactic Acid Calcium 8.1 L Phosphorus 2.7 Magnesium 2.0 Urine Opiates Screen Urine Methadone Screen Ur Barbiturates Screen Ur Phencyclidine Scrn Ur Amphetamines Screen U Methamphetamin-MDMA U Benzodiazepines Scrn Urine Cocaine Screen U Cannabinoids Screen Ur Drug Screen Comment MRSA (PCR) POC Glucose 274 H 04/10/18 04/10/18 04/10/18 06:33 07:32 08:29 Sodium Potassium Chloride Carbon Dioxide Anion Gap BUN Creatinine Estim Creat Clear Calc Est GFR (MDRD) Af Amer Est GFR (MDRD) Non-Af BUN/Creatinine Ratio Glucose Lactic Acid Calcium Phosphorus Magnesium Urine Opiates Screen Urine Methadone Screen Ur Barbiturates Screen Ur Phencyclidine Scrn Ur Amphetamines Screen U Methamphetamin-MDMA U Benzodiazepines Scrn Urine Cocaine Screen U Cannabinoids Screen Ur Drug Screen Comment MRSA (PCR) POC Glucose 277 H 221 H 209 H 04/10/18 04/10/18 04/10/18 09:00 09:40 09:40 Sodium 138 Potassium 4.8 Chloride 107 Carbon Dioxide 10.0 L Anion Gap 21 H BUN 14 Creatinine 1.04 Estim Creat Clear Calc 94.69 Est GFR (MDRD) Af Amer 113 Est GFR (MDRD) Non-Af 94 BUN/Creatinine Ratio 13.5 Glucose 275 H Lactic Acid 1.4 Calcium 8.0 L Phosphorus Magnesium Urine Opiates Screen POSITIVE H Urine Methadone Screen NEGATIVE Ur Barbiturates Screen NEGATIVE Ur Phencyclidine Scrn NEGATIVE Ur Amphetamines Screen NEGATIVE U Methamphetamin-MDMA NEGATIVE U Benzodiazepines Scrn NEGATIVE Urine Cocaine Screen NEGATIVE U Cannabinoids Screen NEGATIVE Ur Drug Screen Comment MRSA (PCR) POC Glucose 04/10/18 04/10/18 04/10/18 09:40 10:55 11:57 Sodium Potassium Chloride Carbon Dioxide Anion Gap BUN Creatinine Estim Creat Clear Calc Est GFR (MDRD) Af Amer Est GFR (MDRD) Non-Af BUN/Creatinine Ratio Glucose Lactic Acid Calcium Phosphorus Magnesium Urine Opiates Screen Urine Methadone Screen Ur Barbiturates Screen Ur Phencyclidine Scrn Ur Amphetamines Screen U Methamphetamin-MDMA U Benzodiazepines Scrn Urine Cocaine Screen U Cannabinoids Screen Ur Drug Screen Comment MRSA (PCR) POC Glucose 293 H 256 H 200 H 04/10/18 04/10/18 04/10/18 12:56 13:55 13:56 Sodium 141 Potassium 4.4 Chloride 111 H Carbon Dioxide 15.0 L Anion Gap 15 BUN 12 Creatinine 0.91 Estim Creat Clear Calc 108.21 Est GFR (MDRD) Af Amer 132 Est GFR (MDRD) Non-Af 109 BUN/Creatinine Ratio 13.2 Glucose 153 H Lactic Acid Calcium 7.9 L Phosphorus Magnesium Urine Opiates Screen Urine Methadone Screen Ur Barbiturates Screen Ur Phencyclidine Scrn Ur Amphetamines Screen U Methamphetamin-MDMA U Benzodiazepines Scrn Urine Cocaine Screen U Cannabinoids Screen Ur Drug Screen Comment MRSA (PCR) POC Glucose 146 H 159 H 04/10/18 04/10/18 04/10/18 15:03 15:59 16:57 Sodium Potassium Chloride Carbon Dioxide Anion Gap BUN Creatinine Estim Creat Clear Calc Est GFR (MDRD) Af Amer Est GFR (MDRD) Non-Af BUN/Creatinine Ratio Glucose Lactic Acid Calcium Phosphorus Magnesium Urine Opiates Screen Urine Methadone Screen Ur Barbiturates Screen Ur Phencyclidine Scrn Ur Amphetamines Screen U Methamphetamin-MDMA U Benzodiazepines Scrn Urine Cocaine Screen U Cannabinoids Screen Ur Drug Screen Comment MRSA (PCR) POC Glucose 150 H 141 H 117 H 04/10/18 04/10/18 04/10/18 17:55 17:56 18:55 Sodium 142 Potassium 4.3 Chloride 110 H Carbon Dioxide 16.0 L Anion Gap 16 H BUN 10 Creatinine 0.82 Estim Creat Clear Calc 120.09 Est GFR (MDRD) Af Amer 150 Est GFR (MDRD) Non-Af 124 BUN/Creatinine Ratio 12.3 Glucose 169 H Lactic Acid Calcium 8.3 L Phosphorus Magnesium Urine Opiates Screen Urine Methadone Screen Ur Barbiturates Screen Ur Phencyclidine Scrn Ur Amphetamines Screen U Methamphetamin-MDMA U Benzodiazepines Scrn Urine Cocaine Screen U Cannabinoids Screen Ur Drug Screen Comment MRSA (PCR) POC Glucose 173 H 237 H 04/10/18 04/10/18 04/10/18 19:58 20:58 22:23 Sodium Potassium Chloride Carbon Dioxide Anion Gap BUN Creatinine Estim Creat Clear Calc Est GFR (MDRD) Af Amer Est GFR (MDRD) Non-Af BUN/Creatinine Ratio Glucose Lactic Acid Calcium Phosphorus Magnesium Urine Opiates Screen Urine Methadone Screen Ur Barbiturates Screen Ur Phencyclidine Scrn Ur Amphetamines Screen U Methamphetamin-MDMA U Benzodiazepines Scrn Urine Cocaine Screen U Cannabinoids Screen Ur Drug Screen Comment MRSA (PCR) POC Glucose 333 H 288 H 229 H 04/10/18 04/10/18 04/11/18 22:25 23:15 00:02 Sodium 140 Potassium 3.7 Chloride 110 H Carbon Dioxide 18.0 L Anion Gap 12 BUN 9 Creatinine 0.89 Estim Creat Clear Calc 110.65 Est GFR (MDRD) Af Amer 136 Est GFR (MDRD) Non-Af 112 BUN/Creatinine Ratio 10.1 Glucose 214 H Lactic Acid Calcium 7.4 L Phosphorus Magnesium Urine Opiates Screen Urine Methadone Screen Ur Barbiturates Screen Ur Phencyclidine Scrn Ur Amphetamines Screen U Methamphetamin-MDMA U Benzodiazepines Scrn Urine Cocaine Screen U Cannabinoids Screen Ur Drug Screen Comment MRSA (PCR) POC Glucose 167 H 190 H 04/11/18 04/11/18 04/11/18 01:01 02:09 02:10 Sodium 139 Potassium 3.6 Chloride 108 H Carbon Dioxide 18.0 L Anion Gap 13 BUN 7 Creatinine 0.83 Estim Creat Clear Calc 118.64 Est GFR (MDRD) Af Amer 147 Est GFR (MDRD) Non-Af 121 BUN/Creatinine Ratio 8.4 L Glucose 186 H Lactic Acid Calcium 7.2 L Phosphorus Magnesium Urine Opiates Screen Urine Methadone Screen Ur Barbiturates Screen Ur Phencyclidine Scrn Ur Amphetamines Screen U Methamphetamin-MDMA U Benzodiazepines Scrn Urine Cocaine Screen U Cannabinoids Screen Ur Drug Screen Comment MRSA (PCR) POC Glucose 192 H 185 H 04/11/18 04/11/18 04/11/18 03:08 05:31 05:40 Sodium Cancelled Potassium Cancelled Chloride Cancelled Carbon Dioxide Cancelled Anion Gap Cancelled BUN Cancelled Creatinine Cancelled Estim Creat Clear Calc Cancelled Est GFR (MDRD) Af Amer Cancelled Est GFR (MDRD) Non-Af Cancelled BUN/Creatinine Ratio Cancelled Glucose Cancelled Lactic Acid Calcium Cancelled Phosphorus Magnesium Urine Opiates Screen Urine Methadone Screen Ur Barbiturates Screen Ur Phencyclidine Scrn Ur Amphetamines Screen U Methamphetamin-MDMA U Benzodiazepines Scrn Urine Cocaine Screen U Cannabinoids Screen Ur Drug Screen Comment MRSA (PCR) POC Glucose 182 H 149 H 04/11/18 06:15 Sodium 140 Potassium 3.5 Chloride 108 H Carbon Dioxide 21.0 Anion Gap 11 BUN 7 Creatinine 0.86 Estim Creat Clear Calc 122.82 Est GFR (MDRD) Af Amer 141 Est GFR (MDRD) Non-Af 117 BUN/Creatinine Ratio 8.1 L Glucose 148 H Lactic Acid Calcium 7.7 L Phosphorus Magnesium Urine Opiates Screen Urine Methadone Screen Ur Barbiturates Screen Ur Phencyclidine Scrn Ur Amphetamines Screen U Methamphetamin-MDMA U Benzodiazepines Scrn Urine Cocaine Screen U Cannabinoids Screen Ur Drug Screen Comment MRSA (PCR) POC Glucose Clinical Impression(s) from Imaging Studies Abdomen/Pelvis CT 04/10/18 01:47 IMPRESSION: There is moderate thickening of the hood of the lower esophagus suggesting esophagitis. Electronically Signed: Fito Soriano MD at 2:45 EDT Tel , Service support , Medical Necessity - Tobacco Use Smoking Status: Never smoker Tobacco Use: Non-smoker Assessment/Plan All Active Problems Esophagitis (Acute) DKA (diabetic ketoacidoses) (Acute) Lactic acidosis (Acute) DKA (diabetic ketoacidoses) (Acute) RECOMMENDATIONS: 1. Continue n.p.o. status until upper endoscopy has been completed. 2. Once the patient's diet is able to be advanced, transition from insulin drip to basal and sliding scale coverage. 3. Continue PPI therapy and anti-emetics 4. General surgery following the plans for upper endoscopy today. 5. Start subcu heparin for DVT prophylaxis 6. Encourage incentive spirometer use and mobilize patient as tolerated. IMPRESSIONS: 1. Diabetic ketoacidosis The patient has a history of multiple previous hospitalizations for diabetic ketoacidosis. Although he does report compliance with his home insulin regimen, he does readily admit to a lack of follow-up with endocrinology. The patient was treated with supplemental IV fluid hydration along with continuous insulin infusion. Serial electrolytes and chemistry profiles were monitored. The patient's anion gap has been closed ?3 now. However, he remains n.p.o., given upcoming EGD. Therefore, the patient will be continued on an insulin infusion with plans to discontinue once the patient's diet is able to be advanced. 2. Generalized abdominal pain/nausea/vomiting with radiographic evidence of esophagitis Likely the consequence of diabetic ketoacidosis in combination with esophagitis noted on CT abdomen/pelvis. The patient will be continued on PPI therapy. I see no indication for the use of opiate pain medications at this time. General surgery has plans for upper endoscopy this morning. 3. Personal history of depression Complicates care, management, recovery and prognosis. Likely okay to resume outpatient psych medications, once the patient is able to tolerate p.o. intake. UPDATE: Upper endoscopy was completed this morning and revealed moderate to severe esophagitis. Biopsies were obtained. Recommendations included continued PPI therapy along with initiation of Carafate and mechanical soft diet. The patient will be transition from his continuous insulin infusion to Lantus 23 units twice daily and medium intensity sliding scale coverage. Supplemental IV fluids can be discontinued. This note was generated with [employer] dictation software. It may contain incorrect words, spelling, and punctuation that were not noted in checking the note before signing. Code Visit Inpatient E&M: [id number] [facility] L3
--- NOTE | 2018-04-11 07:25 | PN_ITS ---
Patient Problems: Active and Suspected Problems Esophagitis (Acute) Subjective: Patient seen. Patient underwent EGD findings included moderate to severe grade 3 esophagitis. Patient still complains of significant epigastric discomfort Objective: GENERAL: Patient appears ill looking HEENT: Clear conjunctiva, dry oral mucosa NECK; supple, normal thyroid, CHEST: Clear to auscultation bilaterally, HEART: Regular S1 S2, tachycardiac ABDOMEN: soft, non-tender, normoactive bowel sounds, RECTAL: deferred EXTREMITIES: No edema, no clubbing, no cyanosis. CLINICAL RESEARCH COORDINATOR: Awake; no lateralizing signs. SKIN: No Rash Vitals/I&O's: Vital Signs Temp Pulse Resp BP Pulse Ox 98.4 F 102 H 12 152/88 H 98 04/11/18 04:00 04/11/18 06:00 04/11/18 06:00 04/11/18 06:00 04/11/18 06:46 Oxygen Delivery Method Room Air Weight: 65 kg Body Mass Index (BMI) 19.7 Finger Stick Blood Glucose 149 Intake and Output for Last 24 Hours 04/09/18 04/10/18 04/11/18 23:59 23:59 23:59 Intake Total 6379.7 / 6379.7 807.1 / 807.1 Output Total 2900 / 2900 600 / 600 Balance 3479.7 / 3479.7 207.1 / 207.1 Laboratory Results 04/10/18 04:50: MRSA (PCR) Negative 04/10/18 07:32: POC Glucose 221 H 04/10/18 08:29: POC Glucose 209 H 04/10/18 09:00: Urine Opiates Screen POSITIVE H, Urine Methadone Screen NEGATIVE , Ur Barbiturates Screen NEGATIVE, Ur Phencyclidine Scrn NEGATIVE, Ur Amphetamines Screen NEGATIVE, U Methamphetamin-MDMA NEGATIVE, U Benzodiazepines Scrn NEGATIVE, Urine Cocaine Screen NEGATIVE, U Cannabinoids Screen NEGATIVE, Ur Drug Screen Comment 04/10/18 09:40: Sodium 138, Potassium 4.8, Chloride 107, Carbon Dioxide 10.0 L, Anion Gap 21 H, BUN 14, Creatinine 1.04, Estim Creat Clear Calc 94.69, Est GFR ( MDRD) Af Amer 113, Est GFR (MDRD) Non-Af 94, BUN/Creatinine Ratio 13.5, Glucose 275 H, Calcium 8.0 L 04/10/18 09:40: Lactic Acid 1.4 04/10/18 09:40: POC Glucose 293 H 04/10/18 10:55: POC Glucose 256 H 04/10/18 11:57: POC Glucose 200 H 04/10/18 12:56: POC Glucose 146 H 04/10/18 13:55: Sodium 141, Potassium 4.4, Chloride 111 H, Carbon Dioxide 15.0 L , Anion Gap 15, BUN 12, Creatinine 0.91, Estim Creat Clear Calc 108.21, Est GFR (MDRD) Af Amer 132, Est GFR (MDRD) Non-Af 109, BUN/Creatinine Ratio 13.2, Glucose 153 H, Calcium 7.9 L 04/10/18 13:56: POC Glucose 159 H 04/10/18 15:03: POC Glucose 150 H 04/10/18 15:59: POC Glucose 141 H 04/10/18 16:57: POC Glucose 117 H 04/10/18 17:55: Sodium 142, Potassium 4.3, Chloride 110 H, Carbon Dioxide 16.0 L , Anion Gap 16 H, BUN 10, Creatinine 0.82, Estim Creat Clear Calc 120.09, Est GFR (MDRD) Af Amer 150, Est GFR (MDRD) Non-Af 124, BUN/Creatinine Ratio 12.3, Glucose 169 H, Calcium 8.3 L 04/10/18 17:56: POC Glucose 173 H 04/10/18 18:55: POC Glucose 237 H 04/10/18 19:58: POC Glucose 333 H 04/10/18 20:58: POC Glucose 288 H 04/10/18 22:23: POC Glucose 229 H 04/10/18 22:25: Sodium 140, Potassium 3.7, Chloride 110 H, Carbon Dioxide 18.0 L , Anion Gap 12, BUN 9, Creatinine 0.89, Estim Creat Clear Calc 110.65, Est GFR ( MDRD) Af Amer 136, Est GFR (MDRD) Non-Af 112, BUN/Creatinine Ratio 10.1, Glucose 214 H, Calcium 7.4 L 04/10/18 23:15: POC Glucose 167 H 04/11/18 00:02: POC Glucose 190 H 04/11/18 01:01: POC Glucose 192 H 04/11/18 02:09: POC Glucose 185 H 04/11/18 02:10: Sodium 139, Potassium 3.6, Chloride 108 H, Carbon Dioxide 18.0 L , Anion Gap 13, BUN 7, Creatinine 0.83, Estim Creat Clear Calc 118.64, Est GFR ( MDRD) Af Amer 147, Est GFR (MDRD) Non-Af 121, BUN/Creatinine Ratio 8.4 L, Glucose 186 H, Calcium 7.2 L 04/11/18 03:08: POC Glucose 182 H 04/11/18 05:31: POC Glucose 149 H 04/11/18 05:40: Sodium Cancelled, Potassium Cancelled, Chloride Cancelled, Carbon Dioxide Cancelled, Anion Gap Cancelled, BUN Cancelled, Creatinine Cancelled, Estim Creat Clear Calc Cancelled, Est GFR (MDRD) Af Amer Cancelled, Est GFR (MDRD) Non-Af Cancelled, BUN/Creatinine Ratio Cancelled, Glucose Cancelled, Calcium Cancelled 04/11/18 06:15: Sodium 140, Potassium 3.5, Chloride 108 H, Carbon Dioxide 21.0, Anion Gap 11, BUN 7, Creatinine 0.86, Estim Creat Clear Calc 122.82, Est GFR ( MDRD) Af Amer 141, Est GFR (MDRD) Non-Af 117, BUN/Creatinine Ratio 8.1 L, Glucose 148 H, Calcium 7.7 L Current Medications Bisacodyl (Dulcolax) 5 mg PO DAILY PRN PRN PRN Reason: Constipation Dextrose (D50w Syringe) 0 gm IV X1 PRN; Protocol PRN Reason: HYPOGLYCEMIA Insulin Aspart 100 unit/ (Sodium Chloride) 100 mls @ 6.21 mls/hr IV .Q16H7M KRISTINE ; 0.1 UNITS/KG/HR PRN Reason: Protocol Last Admin: 04/11/18 00:53 Dose: Not Given Sodium Chloride () 250 mls @ 15 mls/hr IV .[id number] PRN PRN Reason: SALINE FLUSH Pantoprazole Sodium 40 mg/ (Sodium Chloride) 100 mls @ 300 mls/hr IV Q12 KRISTINE Last Admin: 04/11/18 01:05 Dose: 300 mls/hr Dextrose/Sodium Chloride () 1,000 mls @ 150 mls/hr IV .Q6H40M KRISTINE Last Admin: 04/11/18 03:28 Dose: Not Given Magnesium Hydroxide (Milk Of Magnesia) 30 ml PO DAILY PRN PRN PRN Reason: Constipation Morphine Sulfate () 2 mg IV Q4H PRN PRN PRN Reason: SEVERE PAIN (6-10/10) Last Admin: 04/11/18 01:06 Dose: 2 mg Ondansetron HCl (Zofran) 4 mg IV Q6H PRN PRN PRN Reason: NAUSEA/VOMITING Last Admin: 04/11/18 01:09 Dose: 4 mg Sodium Chloride () 5 - 30 ml IV UD PRN PRN Reason: SALINE FLUSH Last Admin: 04/11/18 01:06 Dose: 10 ml Medical Necessity - Tobacco Use Smoking Status: Never smoker Tobacco Use: Non-smoker Assessment/Plan All Active Problems Esophagitis (Acute) DKA (diabetic ketoacidoses) (Acute) Lactic acidosis (Acute) DKA (diabetic ketoacidoses) (Acute) Patient is a 22-year-old gentleman with history of diabetes mellitus type 1 with previous multiple admissions discharge from the hospital a day prior to his readmission with abdominal discomfort. Patient was also noted to be in DKA admitted to the intensive care unit for further management. CT of the chest obtained and admission demonstrated moderate thickening of the hood of the lower esophagus suggesting esophagitis 1. Diabetic ketoacidosis: Patient has been admitted to monitored bed managed with aggressive IV fluid resuscitation systemic insulin and correction of electrolyte abnormalities. Transferred to regular nursing floor after DKA resolved 2. Patient underwent EGD by Dr. Ochoa 04/11/2018 findings included moderate to severe grade 3 esophagitis. Patient on PPI Carafate added 3. Abdominal pain suspected to be secondary to #2 management as discussed above 4. DVT prophylaxis low risk 5. Severe protein calorie malnutrition as evidenced by suboptimal energy intake and weight loss over two months Clinical Impression(s) from Imaging Studies Abdomen/Pelvis CT 04/10/18 01:47 IMPRESSION: There is moderate thickening of the hood of the lower esophagus suggesting esophagitis. Electronically Signed: Fito Soriano MD at 2:45 EDT Tel , Service support , Active Medications Bisacodyl (Dulcolax) 5 mg PO DAILY PRN PRN PRN Reason: Constipation Dextrose (D50w Syringe) 0 gm IV X1 PRN; Protocol PRN Reason: HYPOGLYCEMIA Insulin Aspart 100 unit/ (Sodium Chloride) 100 mls @ 6.21 mls/hr CONT INF .Q16H7M KRISTINE; 0.1 UNITS/KG/HR PRN Reason: Protocol Last Admin: 04/10/18 02:22 Dose: 6.21 mls/hr Pantoprazole Sodium 80 mg/ (Sodium Chloride) 100 mls @ 10 mls/hr CONT INF Q10H KRISTINE Last Admin: 04/10/18 04:15 Dose: 10 mls/hr Insulin Aspart 100 unit/ (Sodium Chloride) 100 mls @ 6.21 mls/hr IV .Q16H7M KRISTINE ; 0.1 UNITS/KG/HR PRN Reason: Protocol Last Admin: 04/10/18 05:37 Dose: Not Given Potassium Chloride/Sodium Chloride (Kcl 20meq In 0.45% Ns 1000ml) 1,000 mls @ 125 mls/hr IV .Q8H KRISTINE Potassium Chloride/Sodium Chloride (Kcl 20meq In 0.45% Ns 1000ml) 1,000 mls @ 175 mls/hr IV .Q5H43M KRISTINE Stop: 04/10/18 08:09 Last Admin: 04/10/18 05:32 Dose: 175 mls/hr Sodium Chloride () 250 mls @ 15 mls/hr IV .[id number] PRN PRN Reason: SALINE FLUSH Magnesium Hydroxide (Milk Of Magnesia) 30 ml PO DAILY PRN PRN PRN Reason: Constipation Ondansetron HCl (Zofran) 4 mg IV Q6H PRN PRN PRN Reason: NAUSEA/VOMITING Last Admin: 04/10/18 05:23 Dose: 4 mg Sodium Chloride () 5 - 30 ml IV UD PRN PRN Reason: SALINE FLUSH Last Admin: 04/10/18 05:39 Dose: 30 ml Code Visit Inpatient E&M: [id number] [facility] H[facility]
[2018-04-11 07:35] LABS: Bedside Glucose 135 mg/dL (70-110)
--- NOTE | 2018-04-11 07:55 | NURSING ---
To [facility] for EGD via bed
[2018-04-11] MEDS: CHLORHEXIDINE GLUC 2% CLOTH 1 EACH TOWELETTE TOPICAL (07:58)
--- NOTE | 2018-04-11 08:32 | PCM.OPRPT ---
Report of Operation Date of Procedure: 04/11/18 Pre-Operative Diagnosis: Thickening of the esophagus on CT, epigastric pain Post-Operative Diagnosis: Grade 3 esophagitis from 35 cm to 40 cm of distal esophagus, gastritis Surgery/Procedure Performed:: EGD with biopsy Type of Anesthesia:: MAC Anesthesiologist: Mario Alberto Rizo Specimen's removed: 1. Antrum 2. Distal esophagus Estimated Blood Loss (mL): Minimal Description of Procedure: Procedure: EGD After obtaining informed consent, the endoscope was passed under direct visualization. Throughout the procedure, patient's blood pressure, pulse, oxygen saturations were monitored continuously by anesthesia. The endoscope was introduced through the mouth and advanced to the 2nd part of the duodenum. The upper GI endoscopy was accomplished without difficulty. Patient tolerated procedure well. Findings: The distal esophagus was noted to have circumferential erosions with some pseudomembranous exudate from 35 cm to 40 cm. Multiple biopsies were taken for histology, viral/bacterial/yeast cultures. Patch mild erythematous mucosa found gastric antrum. Biopsies were taken with cold biopsy for histology. Estimated blood loss was minimal. The duodenum was normal. Impression: 1. Moderate to severe grade 3 esophagitis. Multiple biopsies taken for histology and culture 2. Erythematous mucosa in the antrum. Biopsied. 3. Normal examined duodenum Recommendations: Await biopsies Continue PPI and start Carafate - Complications none
[2018-04-11] MEDS: Sucralfate 1 GM Tablet PO ×3 (09:35→21:31)
[2018-04-11 09:46] LABS: Bedside Glucose 123 mg/dL (70-110)
[2018-04-11] MEDS: Insulin Lispro 100 UNIT/ML INSULN.PEN 10 UNIT SQ ×2 (10:24→16:59)
--- NOTE | 2018-04-11 11:27 | CASEMGMT ---
RN CM NOTE: Pt resting in bed. Awake/alert/oriented. Given [facility] handout/information with phone # to call for transportation to physician appts and pt encouraged to utilize this service. Discussed importance of following up with his PCP and pt voiced understanding. Pt also given pt information for [facility], d/t pt states does not still have the information previously given to him. [facility] [phone] Nolan LOCKETTN RN CM
--- NOTE | 2018-04-11 12:00 | CASEMGMT ---
CM asked SW to speak w/pt regarding mental health resources/case management options in the community. SW spoke w/pt, pt states he goes to counseling already at place called [facility] in [place], and is just starting to work w/case management through this agency. Pt plans to continue w/this agency and is not interested in any additional referrals at this time. SW remains available for any additional needs. MARY Mendez, [employer]CE [employer]PER
--- NOTE | 2018-04-11 12:15 | PCM.PN.BLA ---
Progress Note Pt EGD did show grade III esophagitis of distal 5cm of esophagus, recommend continue PPI, start carafate, awaits bx-sent for viral/bacteria/yeast/histology. Ok for clears but would only advance to soft foods until esophagitis/pain improves. d/w Dr. Rosen. Dr. Hogan is covering over the weekend- call with questions. Alma Rosa Sinclair M.D. pager:[phone]
--- NOTE | 2018-04-11 12:18 | PN_ITS ---
Progress Note Pt EGD did show grade III esophagitis of distal 5cm of esophagus, recommend continue PPI, start carafate, awaits bx-sent for viral/bacteria/yeast/ histology. Ok for clears but would only advance to soft foods until esophagitis /pain improves. d/w Dr. Rosen. Dr. Hogan is covering over the weekend- call with questions. Alma Rosa Sinclair M.D. pager:[phone]
--- NOTE | 2018-04-11 15:25 | BH.NOTE ---
BH: Inpatient Note - Notes Behavioral Health Inpatient Note: 04/11/18 15:25 Referral to [facility] from due to hx of depression and anxiety. Met with pt alone in his room. Denies any suicidal ideations, plan, or intent. Pt is linked with [facility] in [place] and is followed by Dr. Mccullough and therapist My. Reports that he has an appointment there next Saturday. Admits to chronic depression and anxiety which has resulted in 5 psychiatric admissions with [facility] [place]. He is unsure of the date of this admission stating a few weeks ago. Also vague regarding reason for admission stating things got bad. Admits that when depression is significant he is less likely to be compliant with medications. Adamantly denies that his depression or anxiety are overwhelming currently. We discussed his motivation to be compliant with treatment and he stated it was at a 6 out of 10 (10 being highly motivated). Verbalizes struggles with managing his diabetes, however maintains that he has been compliant with medications and that this admission was related to stomach pain through things out of whack. Discussed the benefits of participating in an IOP behavioral health program to further stabilize mental health symptoms. Pt was ambivalent and did not want to commit. Verbalized several obstacles that would keep him from following through with an IOP. Was given a brochure for [facility] IOP and referral to [facility] as well. Encouraged him to discuss this with his outpatient therapist.
[2018-04-11 16:35] LABS: Bedside Glucose 174 mg/dL (70-110)
[2018-04-11] MEDS: Pantoprazole Sodium 40 MG Tablet PO (21:36)
[2018-04-11 21:41] LABS: Bedside Glucose 204 mg/dL (70-110)
[2018-04-12 03:14] VITALS: BP 130/80; PULSE 90; RESP 16; TEMP 36.7; O2SAT 99
--- NOTE | 2018-04-12 06:25 | PCM.PROGNOTE ---
Patient Problems: Active and Suspected Problems Esophagitis (Acute) Subjective: The patient was seen and examined at the bedside this morning. Events from the last 24 hours have been reviewed. The patient is currently afebrile, hemodynamically stable and maintaining appropriate oxygen saturations on room air. The patient currently rates his abdominal pain as a 5 out of 10. Objective: The patient's most recent lab work, culture data and imaging studies have all been personally reviewed. - Physical Exam General: Alert, Oriented x3, Cooperative, No apparent distress HEENT: Atraumatic, PERRLA, Normocephalic Oral: No Gingival or Mucosal Lesions/ Ulcerations Neck: Supple, No Nodes, Trachea Midline Lungs: Normal air movement, No rhonchi, No wheeze, No rales Cardiovascular: Regular rate, Regular Rhythm, Normal S1, Normal S2, No murmurs Abdomen: Bowel Sounds Present, Soft, - - Mild tenderness to palpation. No rebound, guarding or rigidity. Extremities: No clubbing, No cyanosis, No edema Skin: No breakdown Musculoskeletal: No Muscle Wasting Lymphatic: No Cervical, Supraclavicular, or Inguinal Adenopathy Neurological: Neuro grossly intact Psych/Mental Status: Flat Affect Vital Signs Temp Pulse Resp BP Pulse Ox 98.0 F 90 16 130/80 H 99 04/12/18 03:14 04/12/18 03:14 04/12/18 03:14 04/12/18 03:14 04/12/18 03:14 Oxygen Delivery Method Room Air Weight: 143 lb 4.807 oz Body Mass Index (BMI) 19.7 Finger Stick Blood Glucose 135 Intake and Output for Last 24 Hours 04/10/18 04/11/18 04/12/18 23:59 23:59 23:59 Intake Total 6379.7 / 6379.7 2054.1 / 2054.1 120 / 120 Output Total 2900 / 2900 1500 / 1500 Balance 3479.7 / 3479.7 554.1 / 554.1 120 / 120 Microbiology Past 72 Hours 04/11/18 Unknown Gram Stain - Final Other - Other Laboratory Tests Past 24 Hrs 04/11/18 06:15 Sodium 140 Potassium 3.5 Chloride 108 H Carbon Dioxide 21.0 Anion Gap 11 BUN 7 Creatinine 0.86 Estim Creat Clear Calc 122.82 Est GFR (MDRD) Af Amer 141 Est GFR (MDRD) Non-Af 117 BUN/Creatinine Ratio 8.1 L Glucose 148 H Calcium 7.7 L POC Glucose 04/11/18 04/11/18 04/11/18 21:30 16:26 09:39 POC Glucose 204 H 174 H 123 H 04/11/18 07:30 POC Glucose 135 H Clinical Impression(s) from Imaging Studies Abdomen/Pelvis CT 04/10/18 01:47 IMPRESSION: There is moderate thickening of the hood of the lower esophagus suggesting esophagitis. Electronically Signed: Fito Soriano MD at 2:45 EDT Tel , Service support , Medical Necessity - Tobacco Use Smoking Status: Never smoker Tobacco Use: Non-smoker Assessment/Plan All Active Problems Esophagitis (Acute) DKA (diabetic ketoacidoses) (Acute) Lactic acidosis (Acute) DKA (diabetic ketoacidoses) (Acute) RECOMMENDATIONS: 1. Continue basal, prandial and sliding scale insulin coverage. 2. Await EGD biopsy results. 3. Continue PPI and Carafate. 4. Recommend discontinuation of morphine. 5. Encourage incentive spirometer use and mobilize patient as tolerated. IMPRESSIONS: 1. Diabetic ketoacidosis The patient has a history of multiple previous hospitalizations for diabetic ketoacidosis. Although he does report compliance with his home insulin regimen, he does readily admit to a lack of follow-up with endocrinology. The patient was treated with supplemental IV fluid hydration along with continuous insulin infusion. Serial electrolytes and chemistry profiles were monitored. The patient's anion gap has been closed ?3 now. Patient is currently tolerating basal, prandial and sliding scale insulin coverage. Diet has been advanced. 2. Generalized abdominal pain/nausea/vomiting with evidence of grade 3 esophagitis on EGD Likely the consequence of diabetic ketoacidosis in combination with esophagitis noted during EGD. The patient will be continued on PPI and Carafate therapy. I see no indication for the use of opiate pain medications at this time. 3. Personal history of depression Complicates care, management, recovery and prognosis. The patient has been evaluated by [employer]. This note was generated with [email or web address] dictation software. It may contain incorrect words, spelling, and punctuation that were not noted in checking the note before signing. DISPOSITION: Given the lack of ongoing ICU needs, will sign off. Please call with any additional questions. Code Visit Inpatient E&M: 56308 Subs Hosp L2
--- NOTE | 2018-04-12 06:29 | PN_ITS ---
Patient Problems: Active and Suspected Problems Esophagitis (Acute) Subjective: The patient was seen and examined at the bedside this morning. Events from the last 24 hours have been reviewed. The patient is currently afebrile, hemodynamically stable and maintaining appropriate oxygen saturations on room air. The patient currently rates his abdominal pain as a 5 out of 10. Objective: The patient's most recent lab work, culture data and imaging studies have all been personally reviewed. - Physical Exam General: Alert, Oriented x3, Cooperative, No apparent distress HEENT: Atraumatic, PERRLA, Normocephalic Oral: No Gingival or Mucosal Lesions/ Ulcerations Neck: Supple, No Nodes, Trachea Midline Lungs: Normal air movement, No rhonchi, No wheeze, No rales Cardiovascular: Regular rate, Regular Rhythm, Normal S1, Normal S2, No murmurs Abdomen: Bowel Sounds Present, Soft, - - Mild tenderness to palpation. No rebound, guarding or rigidity. Extremities: No clubbing, No cyanosis, No edema Skin: No breakdown Musculoskeletal: No Muscle Wasting Lymphatic: No Cervical, Supraclavicular, or Inguinal Adenopathy Neurological: Neuro grossly intact Psych/Mental Status: Flat Affect Vital Signs Temp Pulse Resp BP Pulse Ox 98.0 F 90 16 130/80 H 99 04/12/18 03:14 04/12/18 03:14 04/12/18 03:14 04/12/18 03:14 04/12/18 03:14 Oxygen Delivery Method Room Air Weight: 143 lb 4.807 oz Body Mass Index (BMI) 19.7 Finger Stick Blood Glucose 135 Intake and Output for Last 24 Hours 04/10/18 04/11/18 04/12/18 23:59 23:59 23:59 Intake Total 6379.7 / 6379.7 2054.1 / 2054.1 120 / 120 Output Total 2900 / 2900 1500 / 1500 Balance 3479.7 / 3479.7 554.1 / 554.1 120 / 120 Microbiology Past 72 Hours 04/11/18 Unknown Gram Stain - Final Other - Other Laboratory Tests Past 24 Hrs 04/11/18 06:15 Sodium 140 Potassium 3.5 Chloride 108 H Carbon Dioxide 21.0 Anion Gap 11 BUN 7 Creatinine 0.86 Estim Creat Clear Calc 122.82 Est GFR (MDRD) Af Amer 141 Est GFR (MDRD) Non-Af 117 BUN/Creatinine Ratio 8.1 L Glucose 148 H Calcium 7.7 L POC Glucose 04/11/18 04/11/18 04/11/18 21:30 16:26 09:39 POC Glucose 204 H 174 H 123 H 04/11/18 07:30 POC Glucose 135 H Clinical Impression(s) from Imaging Studies Abdomen/Pelvis CT 04/10/18 01:47 IMPRESSION: There is moderate thickening of the hood of the lower esophagus suggesting esophagitis. Electronically Signed: Fito Soriano MD at 2:45 EDT Tel , Service support , Medical Necessity - Tobacco Use Smoking Status: Never smoker Tobacco Use: Non-smoker Assessment/Plan All Active Problems Esophagitis (Acute) DKA (diabetic ketoacidoses) (Acute) Lactic acidosis (Acute) DKA (diabetic ketoacidoses) (Acute) RECOMMENDATIONS: 1. Continue basal, prandial and sliding scale insulin coverage. 2. Await EGD biopsy results. 3. Continue PPI and Carafate. 4. Recommend discontinuation of morphine. 5. Encourage incentive spirometer use and mobilize patient as tolerated. IMPRESSIONS: 1. Diabetic ketoacidosis The patient has a history of multiple previous hospitalizations for diabetic ketoacidosis. Although he does report compliance with his home insulin regimen , he does readily admit to a lack of follow-up with endocrinology. The patient was treated with supplemental IV fluid hydration along with continuous insulin infusion. Serial electrolytes and chemistry profiles were monitored. The patient's anion gap has been closed ?3 now. Patient is currently tolerating basal, prandial and sliding scale insulin coverage. Diet has been advanced. 2. Generalized abdominal pain/nausea/vomiting with evidence of grade 3 esophagitis on EGD Likely the consequence of diabetic ketoacidosis in combination with esophagitis noted during EGD. The patient will be continued on PPI and Carafate therapy. I see no indication for the use of opiate pain medications at this time. 3. Personal history of depression Complicates care, management, recovery and prognosis. The patient has been evaluated by [employer]. This note was generated with [employer] dictation software. It may contain incorrect words, spelling, and punctuation that were not noted in checking the note before signing. DISPOSITION: Given the lack of ongoing ICU needs, will sign off. Please call with any additional questions. Code Visit Inpatient E&M: 75150 Subs Hosp L2
[2018-04-12] MEDS: 0.9% NaCl Peripheral Flush Adult/Peds IV ×4 (06:37→09:55)
[2018-04-12] MEDS: Sucralfate 1 GM Tablet PO ×2 (06:37→11:40)
[2018-04-12 07:58] VITALS: BP 140/89; PULSE 83; RESP 16; TEMP 37.1; O2SAT 100
[2018-04-12 08:01] LABS: Bedside Glucose 96 mg/dL (70-110)
[2018-04-12] MEDS: Insulin Lispro 100 UNIT/ML INSULN.PEN 10 UNIT SQ (08:07)
[2018-04-12] MEDS: Ondansetron 4 MG/2 ML Vial IV (08:07)
--- NOTE | 2018-04-12 08:42 | PCM.DC ---
- Discharge Diagnoses Current Active Problems: Current Active and Chronic Problems Esophagitis (Acute) You will use the following diet at home:: Calorie/Carbohydrate Controlled (specify 1200, 1400, etc) - 1800 lisbeth Discharge Activity: Return to Normal Activity Weight Bearing Status: Full weight bearing Call your doctor if you observe: Fever of 101 or Higher, Shortness of breath, Dizziness, Fainting spells, Chest pain, Increased palpitations (irregular heartbeat), Uncontrolled pain Instructions: Esophagitis, Understanding Gastritis Allergies/Adverse Reactions: Allergies No Known Allergies Allergy (Verified 04/10/18 00:30) Medications to take at Discharge Insulin Aspart [Novolog Vial] 10 unit SQ TIDCM #1 vial 02/21/18 Duloxetine Hcl [Cymbalta] 60 mg PO DAILY 03/08/18 [place], Insulin Disposable [Novofine Autocover 30G Needle] 1 each MISCELL. UD 03/16/18 traZODone [Desyrel] 50 mg PO QHS 03/16/18 Insulin Glargine,Hum.rec.anlog [Lantus] 23 unit SQ BID #30 ml 03/18/18 Ondansetron HCl [Zofran] 4 mg PO Q8H PRN PRN #30 tab 04/12/18 Pantoprazole Sodium [Protonix] 40 mg PO BID #90 tab 04/12/18 Sucralfate [Carafate] 1 gm PO 1HR_ACHS #90 tab 04/12/18 The following prescriptions were given: Ondansetron HCl [Zofran] 4 mg PO Q8H PRN PRN #30 tab PRN Reason: Nausea/Vomiting Sucralfate [Carafate] 1 gm PO 1HR_ACHS #90 tab Pantoprazole Sodium [Protonix] 40 mg PO BID #90 tab Primary Care Physician: Jose Daniel Malik MD [Primary Care Provider] - Please follow up with your Primary Care Physician in: 1-2 weeks. Test Results: Test results from this visit will be discussed in further detail at your follow-up appointment, if applicable.
[2018-04-12] MEDS: Morphine 2 MG/ML Syringe IV (09:54)
[2018-04-12] MEDS: Pantoprazole Sodium 40 MG Tablet PO (09:55)
--- NOTE | 2018-04-12 12:04 | NURSING ---
At 1137 pt's BGT was 67. 4oz of orange juice given to pt. At 1159 pt's BGT 73. Pt's lunch on way up to floor.
[2018-04-12 12:05] LABS: Bedside Glucose 73 mg/dL (70-110)
[2018-04-12 12:05] LABS: Bedside Glucose 67 mg/dL (70-110)
--- NOTE | 2018-04-12 12:23 | NURSING ---
Spoke with Dr Paredes regarding pt's BGT results. Will hold 1200 dose of insulin per MD.
[2018-04-12 14:00] VITALS: BP 132/86; PULSE 89; RESP 18; TEMP 36.9; O2SAT 99
--- NOTE | 2018-04-12 16:23 | PCM.DC.SUM ---
Discharge Date and Diagnosis Date of Admission: 04/10/18 Date of Discharge: 04/12/18 - Primary Discharge Diagnosis #1 diabetic ketoacidosis. #2 grade 3 esophagitis/gastritis. #3 severe protein calorie malnutrition. - Secondary Discharge Diagnosis Chronic Problems Depression (Chronic) Type 1 diabetes mellitus (Chronic) Hospital Course and Treatment Imaging Results: Clinical Impression(s) from Imaging Studies Abdomen/Pelvis CT 04/10/18 01:47 IMPRESSION: There is moderate thickening of the hood of the lower esophagus suggesting esophagitis. Electronically Signed: Fito Soriano MD at 2:45 EDT Tel , Service support , Dr. Rosen, critical care. Dr. Sinclair, general surgery. Operations: None Procedures: EGD Summary of Care Provided: Patient seen and examined on the day of discharge and appeared to be stable to be discharged home. He mentioned that his abdominal pain is improving, has been able to eat and drink and keep food down. All over, he is feeling better. His blood sugar has been stable. His other vital signs are stable. - Physical Exam General: Alert, Oriented x3, Cooperative, No apparent distress. HEENT: Atraumatic, PERRLA, EOMI. Neck: Supple, No JVD, Negative Carotid Bruits, Trachea Midline, Thyroid Normal. Lungs: Clear to auscultation, Normal air movement, No rhonchi, No wheeze, No rales. Cardiovascular: Regular rate, Regular Rhythm, Normal S1, Normal S2, PMI Normal. Abdomen: Bowel Sounds Present, Soft, minimal tenderness, Non-Distended, No Hepato-splenomegaly. Extremities: No clubbing, No cyanosis, No edema Skin: No rashes, No breakdown Neurological: Neuro grossly intact Vital Signs are stable. Hospital course: The patient is a 22 year old M admitted because of abdominal pain and he was found to have diabetic ketoacidosis. He was admitted to the intensive care unit and treated for diabetic ketoacidosis with DKA protocol in the ICU. Upon admission, his blood sugar was more than 500, carbon dioxide was 13 and a line gap was 25. VBG revealed pH of 7.31 which is consistent with diabetic ketoacidosis. After treatment with IV insulin drip and IV fluids per protocol, blood sugars improved, anion gap closed and is serum bicarb normalized. Patient complained of abdominal pain for which CT scan abdomen and pelvis with IV contrast performed and revealed moderate thickening of the hood of the lower esophagus suggesting esophagitis. Patient was treated with PPI and IV pain medications but he continued to have significant amount of pain. General surgery consulted and upper EGD performed and revealed severe grade 3 esophagitis with gastritis. Patient was started on Protonix and Carafate. With the above-mentioned treatment, patient symptoms improved and he was able to eat and drink. His blood sugar remained stable and he was started back on his home insulin regimen. Patient discharged home in a stable medical condition, discharged on Protonix twice daily, Carafate 4 times daily, continued on same Lantus and NovoLog regimen, recommended to follow-up with PCP in 1-2 weeks. Discharge Activity: Return to Normal Activity Weight Bearing Status: Full weight bearing Call your doctor if you observe: Fever of 101 or Higher, Shortness of breath, Dizziness, Fainting spells, Chest pain, Increased palpitations (irregular heartbeat), Uncontrolled pain Home Medications: Medications to take at Discharge Insulin Aspart [Novolog Vial] 10 unit SQ TIDCM #1 vial 02/21/18 Duloxetine Hcl [Cymbalta] 60 mg PO DAILY 03/08/18 [place], Insulin Disposable [Novofine Autocover 30G Needle] 1 each MISCELL. UD 03/16/18 traZODone [Desyrel] 50 mg PO QHS 03/16/18 Insulin Glargine,Hum.rec.anlog [Lantus] 23 unit SQ BID #30 ml 03/18/18 Ondansetron HCl [Zofran] 4 mg PO Q8H PRN PRN #30 tab 04/12/18 Pantoprazole Sodium [Protonix] 40 mg PO BID #90 tab 04/12/18 Sucralfate [Carafate] 1 gm PO 1HR_ACHS #90 tab 04/12/18 Following Prescrptions Were Given to Patient: Ondansetron HCl [Zofran] 4 mg PO Q8H PRN PRN #30 tab PRN Reason: Nausea/Vomiting Sucralfate [Carafate] 1 gm PO 1HR_ACHS #90 tab Pantoprazole Sodium [Protonix] 40 mg PO BID #90 tab Primary Care Physician: Jose Daniel Malik MD [Primary Care Provider] - Please follow up with your Primary Care Physician in: 1-2 weeks. Patient Instructions: Esophagitis, Understanding Gastritis Disposition: Home Minutes spent on discharge:: 32 Patient Condition:: Stable Medical Necessity - Tobacco Use Smoking Status: Never smoker Tobacco Use: Non-smoker Meaningful Use Info Meaningful Use Diagnoses (Choose all that apply): None applicable Code Visit Inpatient E&M: 15737 Disch Hosp
== END 2018-04-12 14:50 | disposition home or self-care (01) | DRG 295 ==
LOC: ED 01:38 → ICU 04:29 → MS2 04-11 11:13
PROVIDERS: Internal Medicine; Internal Medicine Critical Care Medicine; Surgery; Admitting Provider Hospitalist; Emergency Provider Emergency Medicine; Family Provider Family Medicine; PCP Family Medicine; Visit Provider Hospitalist
PROC: 0DJ08ZZ Inspection of Upper Intestinal Tract, Via Natural or Artificial Opening Endoscopic (ICD-10-PCS; CPT 43235; principal; 2018-04-11 07:55)
DX: E10.10 Type 1 diabetes mellitus with ketoacidosis without coma (principal); E43 Unspecified severe protein-calorie malnutrition; Z79.4 Long term (current) use of insulin; K20.9 Esophagitis, unspecified; Z68.1 Body mass index [BMI] 19.9 or less, adult; K29.00 Acute gastritis without bleeding; K29.50 Unspecified chronic gastritis without bleeding; F32.9 Major depressive disorder, single episode, unspecified; F41.9 Anxiety disorder, unspecified; Z86.39 Personal history of other endocrine, nutritional and metabolic disease; Z79.899 Other long term (current) drug therapy
CPT/HCPCS: 74177; 80048; 80053; 80307; 82009; 82803; 82962; 83036; 83605; 83690; 83735; 83930; 84100; 85025; 87040; 87070; 87075; 87077; 87186; 87205; 87252; 87641; 88305; 88312; 88313; 88342; 97802; 99285; J7030; J7120; A4216; J2405; J3490; J7799